=== PATIENT | female | born 1950 | race Caucasian/White ===

== ENCOUNTER 2023-05-24 12:23 | Outpatient (REF) | payer MEDICARE, SELFPAY ==
--- NOTE | ~2023-05-24 | XR_ITS ---
EXAMINATION: XR KNEES AP STANDING BILATERAL XR KNEE, RIGHT CLINICAL INFORMATION: Pain in unspecified knee. COMPARISON: None TECHNIQUE: AP standing view of bilateral knees. 2 views of the right knee. FINDINGS: LEFT KNEE: Mild medial joint space narrowing. Tiny medial and lateral marginal osteophytes. The bones are diffusely demineralized. RIGHT KNEE: Joint effusion. A 1.9 cm corticated ossicle just superior to the patella. Scattered calcifications in the soft tissues of the right knee. Raxjbvof-yh-euofth medial joint space narrowing. Moderate tricompartmental osteophytes. Mild lateral joint space narrowing. A 1.4 cm corticated cystic lucency in the proximal central aspect of the tibia. The bones are diffusely demineralized. XR/XR knee RT 2V IMPRESSION: 1. Sqtdmoyg-vt-ulqjyn degenerative changes right knee with 1.9 cm corticated ossicle and joint effusion superior to the patella. 2. Mild degenerative changes left knee. Additional imaging with CT scan or MRI should be considered for better visualization as these modalities are much more sensitive for detection of fracture or other underlying pathology.
--- NOTE | ~2023-05-24 | XR_ITS ---
EXAMINATION: XR KNEES AP STANDING BILATERAL XR KNEE, RIGHT CLINICAL INFORMATION: Pain in unspecified knee. COMPARISON: None TECHNIQUE: AP standing view of bilateral knees. 2 views of the right knee. FINDINGS: LEFT KNEE: Mild medial joint space narrowing. Tiny medial and lateral marginal osteophytes. The bones are diffusely demineralized. RIGHT KNEE: Joint effusion. A 1.9 cm corticated ossicle just superior to the patella. Scattered calcifications in the soft tissues of the right knee. Odkrhxqw-py-vnmjet medial joint space narrowing. Moderate tricompartmental osteophytes. Mild lateral joint space narrowing. A 1.4 cm corticated cystic lucency in the proximal central aspect of the tibia. The bones are diffusely demineralized. XR/XR knee standing BI IMPRESSION: 1. Rvalntof-kl-zfhapw degenerative changes right knee with 1.9 cm corticated ossicle and joint effusion superior to the patella. 2. Mild degenerative changes left knee. Additional imaging with CT scan or MRI should be considered for better visualization as these modalities are much more sensitive for detection of fracture or other underlying pathology.
== END 2023-05-24 12:24 | disposition home or self-care (01) ==
LOC: HO.HOSX 12:23
PROVIDERS: Visit Provider Orthopaedic Surgery
DX: M17.11 Unilateral primary osteoarthritis, right knee (principal); M54.16 Radiculopathy, lumbar region
CPT/HCPCS: 20610; 73560; 73565; 99202; J1100

== ENCOUNTER 2023-05-24 14:28 | Outpatient (AMB) | payer MEDICARE, SELFPAY ==
--- NOTE | 2023-05-24 14:35 | A.OFFVIS_ITS ---
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 Patient reports she was walking her dog when it pulled on its leash and caused her to fall about a year ago. Patient reports she had physical therapy about a year ago with no relief. She states that laying down improves the pain. Patient indicates she is not currently taking any medications for her pain. 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 She complains of pain from her right hip down into her right foot. She says she has pain with daily & weight-bearing activities, which improves when she lays down. She says she stays active but is limited by her pain. She has fallen multiple times in the last few months which has worsened her pain. She complains of a burning pain in her feet, along with numbness and tingling in her feet. She has Afib and currently takes Warfarin. She is not able to take NSAIDs. [facility]LY [facility] Medical History Asthma Atrial fibrillation Cataract Cataract Hypercholesterolemia Hypertension Obesity (BMI 30-39.9) Osteopenia Peripheral vascular disease Type 2 diabetes mellitus with hyperglycemia Vitamin D deficiency Vitreous detachment Wandering atrial pacemaker Surgical History History of tonsillectomy Family History Mother Ovarian cancer Father No problems noted. Son No problems noted. Daughter Polymyositis Social History Housing: House Alcohol intake: never Patient Tobacco Use Status: Never used Tobacco e-Cigarette/Vaping Use: Never Used Second Hand Smoke Exposure: Yes service: No Current occupational status: retired Cognitive needs: No Hearing needs: No Vision needs: Yes (reading glasses ) Review of Systems Const All systems reviewed & are unremarkable except as noted in HPI and below Physical Exam Vital Signs: BMI result Body Mass Index 32.8 Const General: no acute distress, alert and awake Orientation/consciousness: patient oriented x3 HEENT Head: Yes normocephalic and Yes atraumatic Eyes EOM: EOMs intact bilaterally Resp Effort & Inspection: normal respiratory effort and able to speak in complete sentences Cardio Jugular venous distension: no JVD Skin General skin exam: turgor normal Rashes: no rashes Neuro General: patient oriented x3 Extrem Other: Right Knee: Medial & lateral joint line pain Mild effusion Psych Appearance: grossly normal Affect: normal affect Attitude: cooperative Office Procedures Joint Injection/Drain Joint Injection/Drain Details: Injected 1 mL of Decadron and 3 mL 1% lidocaine and 3 mL of 0.25% Marcaine. Site was prepped using aseptic technique. Patient tolerated the procedure well. Primary Site: right knee Approach Used: anterolateral Coding 96787 - Large joint Procedure code (CPT) selection complete Results Reviewed Results Reviewed: 05/24/23 15:11 BUPivacaine MPF 0.25 % [Sensorcaine-MPF 0.25% 10 ML] 10 ml .ROUTE .STK-MED ONE Lidocaine HCl 2 % MPF [Xylocaine 2 % MPF] 5 ml .ROUTE .STK-MED ONE dexAMETHasone sod phosphate [Decadron] 4 mg .ROUTE .STK-MED ONE I personally reviewed relevant radiographs. Moderate-severe Right knee OA Assessment & Plan Assessment & Plan (1) Osteoarthritis of right knee: Code(s): M17.11 - Unilateral primary osteoarthritis, right knee Plan: This is a 72 year old woman with severe right knee OA. She has pain with daily activity, worse with prolonged ambulation or standing. She ambulates with antalgia and feels limited in her ADLs by pain. I discussed her diagnosis and treatment options. I recommend she be mindful to not push through pain. She is unable to take NSAIDs due to Afib and the use of Warfarin. I injected her right knee today, which she tolerated well. She will follow up in 3 months. (2) Lumbar radiculopathy: Code(s): M54.16 - Radiculopathy, lumbar region Plan: Burning, numbness, and tingling radiating down her right leg and into her foot. Hx of lumbar DDD. I referred her to Dr. Reyna in Pain Management for assessment. (3) Lumbar degenerative disc disease: Code(s): M51.36 - Other intervertebral disc degeneration, lumbar region (4) Diabetic neuropathy: Code(s): E11.40 - Type 2 diabetes mellitus with diabetic neuropathy, unspecified Plan Scribed for Mika Green MD by Pedro Howell, medical clerk, on 05/24/23 at 3:05 PM, EST. Orders: Orders XR knee RT 2V 05/24/23 M25.569 - Pain in unspecified knee XR knee standing BI 05/24/23 M25.569 - Pain in unspecified knee Referrals Pain Management Referral M54.16 - Radiculopathy, lumbar region Coding Level of Care Code New Pt Level 4 (72523) Diagnoses Osteoarthritis of right knee M17.11 Lumbar radiculopathy M54.16 Lumbar degenerative disc disease M51.36 Diabetic neuropathy E11.40 CPT Codes Coding - 49610 Large joint: 16510 - Large joint ([id number])
[2023-05-24 14:47] VITALS: BMI 32.8
== END 2023-05-24 15:45 | disposition home or self-care (01) ==
PROVIDERS: PCP Internal Medicine; Visit Provider Orthopaedic Surgery
DX: M17.11 Unilateral primary osteoarthritis, right knee (principal); M54.16 Radiculopathy, lumbar region; M51.36 Other intervertebral disc degeneration, lumbar region
CPT/HCPCS: 20610; 99204

== ENCOUNTER 2023-06-14 15:11 | Outpatient (AMB) | payer MEDICARE, SELFPAY ==
--- NOTE | 2023-06-14 15:14 | A.OFFVIS_ITS ---
Intake Vital Signs 06/14/23 15:15 Height 5 ft 3 in Weight 188 lb BMI 33.3 BP 157/73 H Blood Pressure Location Lt brachial Position Sitting Respiration 14 Pulse 88 Pulse Source Pulse Oximeter Pulse Oximetry (%) 96 Oxygen Delivery Method Room Air Intake Visit Reasons: Radiculopathy, Lumbar Region Allergies levofloxacin [Levaquin] Allergy (Unknown, Verified 06/14/23 15:16) Rash Clindamycin HCl Allergy (Unknown, Uncoded 06/14/23 15:16) Rash shrimps Allergy (Unknown, Uncoded 06/14/23 15:16) Rash Medication List - Last Reconciled 06/14/23 by Steph Rivas LPN amlodipine 5 mg PO DAILY ascorbic acid (vitamin C) 1 g PO DAILY cholecalciferol (vitamin D3) 25 mcg PO DAILY coenzyme Q10 10 mg PO TID cranberry fruit concentrate (Azo Cranberry) 250 mg PO TID diclofenac sodium 1% (Voltaren Arthritis Pain) 4 grams topical QID ferrous sulfate 325 mg PO DAILY ginkgo biloba 40 mg PO DAILY glucosamine sulfate (Glucosamine) 500 mg PO DAILY grape seed extract 150 mg PO DAILY lisinopril 2.5 mg PO DAILY upxdbcb-rila-yqmch-oreg-capryl 100 mg-150 mg- 50 mg-150 mg caps PO ubidecarenone-omega 3-vit E 25-150-200 mg-mg-unit (Co Q-84-Ydneaof E-Fish Oil) 1 cap PO DAILY warfarin 5 mg PO DAILY HPI Radiculopathy, Lumbar Region HPI Details 72-year-old female presenting today for a new patient evaluation of lumbar radiculopathy. She has a history of severe right knee osteoarthritis and lumbar DDD. She reports pain from her right hip down to her right foot. She complains of a burning pain in her feet, along with numbness and tingling in her feet. She has pain with daily and weight-bearing activities, which improves when she lays down. She says she stays active but is limited by her pain. She has fallen multiple times in the last few months, which has worsened her pain. The pain is described as 1?10/10 in intensity, depending on the level of activity. It is described as an ache in her right lower leg associated with burning in her ankle and foot. She also complains of occasional tingling and dullness in her right side fingers. The pain is worse at night before bed when standing at 8/10 intensity. She has a limp with ambulation. She leans against the shopping cart, which relieves her pain. She lives with her dog and reports that she bends down more than 50 times a day. She also has a lifelong history of lifting heavy items. She had x-ray of leg but no US of lower extremities. She visited Dr. Oly pedraza and had a knee injection with significant relief. She had completed physical therapy in the past about the years ago. She has atrial fibrillation and currently takes warfarin. She is not able to take NSAIDs. She states her diabetes mellitus is stable. Her last HbA1C was 6. She is currently not taking any medication. She has no implant in her body. [facility] Medical History Asthma Atrial fibrillation Cataract Cataract Hypercholesterolemia Hypertension Obesity (BMI 30-39.9) Osteopenia Peripheral vascular disease Type 2 diabetes mellitus with hyperglycemia Vitamin D deficiency Vitreous detachment Wandering atrial pacemaker Surgical History History of tonsillectomy Family History Mother Ovarian cancer Father No problems noted. Son No problems noted. Daughter Polymyositis Social History Housing: House Alcohol intake: never Patient Tobacco Use Status: Never used Tobacco e-Cigarette/Vaping Use: Never Used Second Hand Smoke Exposure: Yes service: No Current occupational status: retired Cognitive needs: No Hearing needs: No Vision needs: Yes (reading glasses ) Review of Systems Const All systems reviewed & are unremarkable except as noted in HPI and below Physical Exam Vital Signs: Last Vital Signs Pulse 88 06/14/23 15:15 Resp 14 06/14/23 15:15 BP 157/73 H 06/14/23 15:15 Pulse Ox 96 06/14/23 15:15 Oxygen Delivery Method Room Air 06/14/23 15:15 BMI result Body Mass Index 33.3 General: Appears afebrile. Alert and oriented. Mood and affect appropriate. Follows and participates in conversation appropriately. Respiratory effort is unlabored. Able to transition from sit to stand unassisted. Ambulates with bilaterally normal heel strike and toe off. Low back: Lumbar extension and flexion do not reproduce the pain. There is no significant tenderness overlying the sacroiliac joints. There are visible venous varicosities on bilateral lower extremities. Results Reviewed Results Reviewed: 05/24/23: XR KNEES AP STANDING BILATERAL. XR KNEE, RIGHT FINDINGS: LEFT KNEE: Mild medial joint space narrowing. Tiny medial and lateral marginal osteophytes. The bones are diffusely demineralized. RIGHT KNEE: Joint effusion. A 1.9 cm corticated ossicle just superior to the patella. Scattered calcifications in the soft tissues of the right knee. Vuevmsja-he-mqnonl medial joint space narrowing. Moderate tricompartmental osteophytes. Mild lateral joint space narrowing. A 1.4 cm corticated cystic lucency in the proximal central aspect of the tibia. The bones are diffusely demineralized. IMPRESSION: 1. Yesubktr-si-auledd degenerative changes right knee with 1.9 cm corticated ossicle and joint effusion superior to the patella. 2. Mild degenerative changes left knee. Additional imaging with CT scan or MRI should be considered for better visualization as these modalities are much more sensitive for detection of fracture or other underlying pathology. Assessment & Plan Assessment & Plan (1) Lumbar radiculopathy: Code(s): M54.16 - Radiculopathy, lumbar region (2) Lumbar degenerative disc disease: Code(s): M51.36 - Other intervertebral disc degeneration, lumbar region (3) Varicose vein of leg: Code(s): I83.90 - Asymptomatic varicose veins of unspecified lower extremity Plan Ordered an MRI scan of the lumbar region to further evaluate the back pain. Ordered a US of the lower extremities to further evaluate venous reflux. Advised to avoid heavy physical activities including heavy lifting, twisting, and bending. The patient will call and scheduled an appointment to review the MRI and US results. Will likely follow up with an epidural steroid injection for lumbar radicular symptoms. Minimally invasive lumbar decompression and spinal cord stimulation may be other options for refractory neurogenic symptoms secondary to spinal stenosis and radicular symptoms. Discussed hyaluronic acid injection vs. temporary nerve stimulator as possible treatment options for knee pain in the future due to limited benefit from intra- articular corticosteroids as well as patient's hesitance to receive further steroid joint injections. Scribed for Dr. Reyna by Bassam Lin medical service representative, on 06/14/2023. I, Dr. Reyna, have personally reviewed and agree with the information entered by the scribe. Orders: Orders MR lumbar spine wo con Today M51.36 - Other intervertebral disc degeneration, lumbar region, M54.16 - Radiculopathy, lumbar region US venous duplex LE BI Today I83.90 - Asymptomatic varicose veins of unspecified lower extremity Coding Level of Care Code New Pt Level 4 (98059) Diagnoses Lumbar radiculopathy M54.16 Lumbar degenerative disc disease M51.36 Varicose vein of leg I83.90
[2023-06-14 15:15] VITALS: BP 157/73; PULSE 88; RESP 14; O2SAT 96; BMI 33.3
== END 2023-06-14 15:45 | disposition home or self-care (01) ==
PROVIDERS: PCP Internal Medicine; Visit Provider Internal Medicine
DX: M54.16 Radiculopathy, lumbar region (principal); M51.36 Other intervertebral disc degeneration, lumbar region; I83.90 Asymptomatic varicose veins of unspecified lower extremity
CPT/HCPCS: 99204

== ENCOUNTER → 2023-06-14 15:11 | Outpatient (BNVA) | payer MEDICARE, SELFPAY | PROVIDERS: PCP Internal Medicine; Visit Provider Internal Medicine | DX: M54.16 Radiculopathy, lumbar region (principal); M51.36 Other intervertebral disc degeneration, lumbar region; M17.11 Unilateral primary osteoarthritis, right knee; M85.80 Other specified disorders of bone density and structure, unspecified site; I73.9 Peripheral vascular disease, unspecified | CPT/HCPCS: 99202 ==

== ENCOUNTER 2023-06-30 13:12 | Outpatient (REF) | payer MEDICARE, SELFPAY ==
--- NOTE | ~2023-06-30 | US_ITS ---
EXAMINATION: US LOWER EXTREMITY VENOUS (REFLUX EXAM), BILATERAL CLINICAL INDICATION: Chronic venous insufficiency with lower extremity of varicose veins COMPARISON: None. TECHNIQUE: Color flow triplex imaging and compression Doppler was performed to evaluate both the deep and the superficial systems bilaterally. To evaluate the superficial system, the examination was performed in the upright position. Color-flow Doppler ultrasound and compression ultrasound were utilized. In addition, maneuvers were utilized to demonstrate reflux. FINDINGS: 1. DEEP VENOUS ULTRASOUND OF THE RIGHT LOWER EXTREMITY: Common Femoral Vein: Compressible, normal respiratory variation and augmented flow. Femoral Vein: Compressible, normal color flow and augmentation. Popliteal Vein: Compressible, normal augmentation. Deep Reflux: There is no evidence of reflux in the deep system in either the common femoral vein or the popliteal vein. There is no evidence of a Jones's cyst. 2. SUPERFICIAL ULTRASOUND WITH DOPPLER OF RIGHT LOWER EXTREMITY: GREAT SAPHENOUS VEIN: Saphenofemoral Junction: 0.5 cm; Reflux: 0 ms Proximal Thigh: 0.5 cm; Reflux: 0 ms Mid Thigh: 0.4 cm; Reflux: 2424 ms Above Knee: 0.3 cm; Reflux: 0 ms At Knee: 0.3 cm; Reflux: 0 ms Below Knee: 0.2 cm; Reflux: 0 ms Mid Calf: 0.3 cm; Reflux: 0 ms Ankle: 0.3 cm; Reflux: 0 ms DUPLICATED MEDIAL GREAT SAPHENOUS VEIN: Diameter: None imaged Reflux: NA DUPLICATED LATERAL GREAT SAPHENOUS VEIN: Diameter: 0.4 cm Reflux: 1576 ms SMALL SAPHENOUS VEIN: Proximal: 0.2 cm; Reflux: 0 ms Distal: 0.1 cm; Reflux: 0 ms VEIN OF GIACOMINI: Size: NA Reflux: NA PERFORATORS: Location: None imaged Size: NA Reflux: NA VARICOSITIES: Location: Distal thigh, knee, proximal calf, mid calf off the great saphenous vein Size: 0.3 to 0.4 cm Reflux: 2884 ms at the level the knee and proximal calf 3. DEEP VENOUS ULTRASOUND OF THE LEFT LOWER EXTREMITY: Common Femoral Vein: Compressible, normal respiratory variation and augmented flow. Femoral Vein: Compressible, normal color flow and augmentation. Popliteal Vein: Compressible, normal augmentation. Deep Reflux: There is no evidence of reflux in the deep system in either the common femoral vein or the popliteal vein. There is no evidence of a Jones's cyst. 4. SUPERFICIAL ULTRASOUND WITH DOPPLER OF LEFT LOWER EXTREMITY: GREAT SAPHENOUS VEIN: Saphenofemoral Junction: 0.5 cm; Reflux: 0 ms Proximal Thigh: 0.4 cm; Reflux: 0 ms Mid Thigh: 0.2 cm; Reflux: 0 ms Above Knee: 0.2 cm; Reflux: 1156 ms At Knee: 0.3 cm; Reflux: 0 ms Below Knee: 0.3 cm; Reflux: 0 ms Mid Calf: 0.2 cm; Reflux: 0 ms Ankle: 0.2 cm; Reflux: 0 ms DUPLICATED MEDIAL GREAT SAPHENOUS VEIN: Diameter: None imaged Reflux: NA DUPLICATED LATERAL GREAT SAPHENOUS VEIN: Diameter: 0.3 cm Reflux: None SMALL SAPHENOUS VEIN: Proximal: 0.2 cm; Reflux: 0 ms Distal: 0.2 cm; Reflux: 0 ms VEIN OF GIACOMINI: Size: NA Reflux: NA PERFORATORS: Location: None imaged Size: NA Reflux: NA VARICOSITIES: Location: Knee and proximal calf off the great saphenous vein Size: 0.3 cm Reflux: None US/US venous duplex LE BI IMPRESSION: Right: Focal segmental reflux in the great saphenous vein in the mid thigh. Reflux also seen in the lateral duplicated great saphenous vein within the thigh. Branching varicosities with reflux as described above Left: Focal segmental reflux in the great saphenous vein in the distal thigh. Branching varicosities without reflux as described above.
== END 2023-06-30 13:13 | disposition home or self-care (01) ==
LOC: HO.US 13:12
PROVIDERS: PCP Internal Medicine; Visit Provider Internal Medicine
DX: I83.93 Asymptomatic varicose veins of bilateral lower extremities (principal)
CPT/HCPCS: 93970

== ENCOUNTER 2023-07-12 15:43 | Outpatient (AMB) | payer MEDICARE, SELFPAY ==
[2023-07-12 15:46] VITALS: BP 130/76; PULSE 97; RESP 14; O2SAT 97; BMI 33.3
--- NOTE | 2023-07-12 15:46 | MHC.OFFVIS ---
Intake Vital Signs 07/12/23 15:46 Height 5 ft 3 in Weight 188 lb BMI 33.3 BP 130/76 Blood Pressure Location Lt brachial Position Sitting Respiration 14 Pulse 97 Pulse Source Pulse Oximeter Pulse Oximetry (%) 97 Oxygen Delivery Method Room Air Intake Visit Reasons: Varicose Vein of Leg Ultrasound Results Allergies levofloxacin [Levaquin] Allergy (Unknown, Verified 07/12/23 15:50) Rash Clindamycin HCl Allergy (Unknown, Uncoded 07/12/23 15:50) Rash shrimps Allergy (Unknown, Uncoded 07/12/23 15:50) Rash Medication List - Last Reconciled 07/12/23 by Steph Rivas LPN amlodipine 5 mg PO DAILY ascorbic acid (vitamin C) 1 g PO DAILY cholecalciferol (vitamin D3) 25 mcg PO DAILY coenzyme Q10 10 mg PO TID cranberry fruit concentrate (Azo Cranberry) 250 mg PO TID diclofenac sodium 1% (Voltaren Arthritis Pain) 4 grams topical QID ferrous sulfate 325 mg PO DAILY ginkgo biloba 40 mg PO DAILY glucosamine sulfate (Glucosamine) 500 mg PO DAILY grape seed extract 150 mg PO DAILY lisinopril 2.5 mg PO DAILY evfolsm-xxiz-luckv-oreg-capryl 100 mg-150 mg- 50 mg-150 mg caps PO ubidecarenone-omega 3-vit E 25-150-200 mg-mg-unit (Co A-32-Acfshgo E-Fish Oil) 1 cap PO DAILY warfarin 5 mg PO DAILY HPI Varicose Vein of Leg Ultrasound Results HPI Details 72-year-old female who presents today to the office for a follow up review of ultrasound result of leg. She reports foot pain with ambulation. She describes her pain as a sharp, intermittent stabbing pain in her foot. She has been using new, good-cushioned shoes for ambulation. The patient had a cortisone injection for knee pain. The patient will follow up with the residential appliance repair technician. She has tried compression stocking and noticed numbness in her toes. She has also tried open-toe compression stocking in the past. We reviewed US of the lower extremities which revealed venous varicosities and reflux. [facility] Medical History Asthma Atrial fibrillation Cataract Cataract Hypercholesterolemia Hypertension Obesity (BMI 30-39.9) Osteopenia Peripheral vascular disease Type 2 diabetes mellitus with hyperglycemia Vitamin D deficiency Vitreous detachment Wandering atrial pacemaker Surgical History History of tonsillectomy Family History Mother Ovarian cancer Father No problems noted. Son No problems noted. Daughter Polymyositis Social History Housing: House Alcohol intake: never Patient Tobacco Use Status: Never used Tobacco e-Cigarette/Vaping Use: Never Used Second Hand Smoke Exposure: Yes service: No Current occupational status: retired Cognitive needs: No Hearing needs: No Vision needs: Yes (reading glasses ) Review of Systems Const All systems reviewed & are unremarkable except as noted in HPI and below Physical Exam Vital Signs: Last Vital Signs Pulse 97 07/12/23 15:46 Resp 14 07/12/23 15:46 BP 130/76 07/12/23 15:46 Pulse Ox 97 07/12/23 15:46 Oxygen Delivery Method Room Air 07/12/23 15:46 BMI result Body Mass Index 33.3 General: Appears afebrile. Alert and oriented. Mood and affect appropriate. Follows and participates in conversation appropriately. Respiratory effort is unlabored. Able to transition from sit to stand unassisted. Ambulates with bilaterally normal heel strike and toe off. Results Reviewed Results Reviewed: 06/30/23: US LOWER EXTREMITY VENOUS (REFLUX EXAM), BILATERAL FINDINGS: 1. DEEP VENOUS ULTRASOUND OF THE RIGHT LOWER EXTREMITY: Common Femoral Vein: Compressible, normal respiratory variation and augmented flow. Femoral Vein: Compressible, normal color flow and augmentation. Popliteal Vein: Compressible, normal augmentation. Deep Reflux: There is no evidence of reflux in the deep system in either the common femoral vein or the popliteal vein. There is no evidence of a Jones's cyst. 2. SUPERFICIAL ULTRASOUND WITH DOPPLER OF RIGHT LOWER EXTREMITY: GREAT SAPHENOUS VEIN: Saphenofemoral Junction: 0.5 cm; Reflux: 0 ms Proximal Thigh: 0.5 cm; Reflux: 0 ms Mid Thigh: 0.4 cm; Reflux: 2424 ms Above Knee: 0.3 cm; Reflux: 0 ms At Knee: 0.3 cm; Reflux: 0 ms Below Knee: 0.2 cm; Reflux: 0 ms Mid Calf: 0.3 cm; Reflux: 0 ms Ankle: 0.3 cm; Reflux: 0 ms DUPLICATED MEDIAL GREAT SAPHENOUS VEIN: Diameter: None imaged Reflux: NA DUPLICATED LATERAL GREAT SAPHENOUS VEIN: Diameter: 0.4 cm Reflux: 1576 ms SMALL SAPHENOUS VEIN: Proximal: 0.2 cm; Reflux: 0 ms Distal: 0.1 cm; Reflux: 0 ms VEIN OF GIACOMINI: Size: NA Reflux: NA PERFORATORS: Location: None imaged Size: NA Reflux: NA VARICOSITIES: Location: Distal thigh, knee, proximal calf, mid calf off the great saphenous vein Size: 0.3 to 0.4 cm Reflux: 2884 ms at the level the knee and proximal calf 3. DEEP VENOUS ULTRASOUND OF THE LEFT LOWER EXTREMITY: Common Femoral Vein: Compressible, normal respiratory variation and augmented flow. Femoral Vein: Compressible, normal color flow and augmentation. Popliteal Vein: Compressible, normal augmentation. Deep Reflux: There is no evidence of reflux in the deep system in either the common femoral vein or the popliteal vein. There is no evidence of a Jones's cyst. 4. SUPERFICIAL ULTRASOUND WITH DOPPLER OF LEFT LOWER EXTREMITY: GREAT SAPHENOUS VEIN: Saphenofemoral Junction: 0.5 cm; Reflux: 0 ms Proximal Thigh: 0.4 cm; Reflux: 0 ms Mid Thigh: 0.2 cm; Reflux: 0 ms Above Knee: 0.2 cm; Reflux: 1156 ms At Knee: 0.3 cm; Reflux: 0 ms Below Knee: 0.3 cm; Reflux: 0 ms Mid Calf: 0.2 cm; Reflux: 0 ms Ankle: 0.2 cm; Reflux: 0 ms DUPLICATED MEDIAL GREAT SAPHENOUS VEIN: Diameter: None imaged Reflux: NA DUPLICATED LATERAL GREAT SAPHENOUS VEIN: Diameter: 0.3 cm Reflux: None SMALL SAPHENOUS VEIN: Proximal: 0.2 cm; Reflux: 0 ms Distal: 0.2 cm; Reflux: 0 ms VEIN OF GIACOMINI: Size: NA Reflux: NA PERFORATORS: Location: None imaged Size: NA Reflux: NA VARICOSITIES: Location: Knee and proximal calf off the great saphenous vein Size: 0.3 cm Reflux: None IMPRESSION: Right: Focal segmental reflux in the great saphenous vein in the mid-thigh. Reflux also seen in the lateral duplicated great saphenous vein within the thigh. Branching varicosities with reflux as described above Left: Focal segmental reflux in the great saphenous vein in the distal thigh. Branching varicosities without reflux as described above. Assessment & Plan Assessment & Plan (1) Lumbar radiculopathy: Code(s): M54.16 - Radiculopathy, lumbar region (2) Varicose vein of leg: Comment: GSV reflux Code(s): I83.90 - Asymptomatic varicose veins of unspecified lower extremity (3) Right foot pain: Code(s): M79.671 - Pain in right foot Plan A referral was provided to physical therapy for lumbar radicular symptoms. The patient will call us to inform whether her pain has improved or not after two month of therapy. A referral was provided to vascular surgery to further evaluate the venous reflux for consideration of RFA. She has previously trialed compression stockings without relief. She has significant pain around the right knee in calves which correlates with the reflux findings on her ultrasound exam. I ordered an x-ray of the right foot to assess the pain in the right foot. Recommend podiatry evaluation. Consider MRI in the future if no response to orthotics, arch support and podiatry recommendations. Scribed for Dr. Reyna by Bassam Lin, vp medical, on 07/12/2023. I, Dr. Reyna, have personally reviewed and agree with the information entered by the scribe. Orders: Orders PT Evaluation and Treatment Today M54.16 - Radiculopathy, lumbar region XR foot RT min 3V Today M79.671 - Pain in right foot Referrals Vascular Surgery Referral I83.90 - Asymptomatic varicose veins of unspecified lower extremity Coding Level of Care Code Est Pt Level 4 (15766) Diagnoses Lumbar radiculopathy M54.16 Varicose vein of leg I83.90 Right foot pain M79.671
== END 2023-07-12 16:14 | disposition home or self-care (01) ==
PROVIDERS: PCP Internal Medicine; Visit Provider Internal Medicine
DX: M54.16 Radiculopathy, lumbar region (principal); I83.90 Asymptomatic varicose veins of unspecified lower extremity; M79.671 Pain in right foot
CPT/HCPCS: 99213

== ENCOUNTER 2023-07-12 15:43 | Outpatient (REF) | payer MEDICARE, SELFPAY ==
--- NOTE | ~2023-07-12 | XR_ITS ---
EXAMINATION: XR FOOT, RIGHT CLINICAL INFORMATION: Pain right foot. COMPARISON: None available. TECHNIQUE: AP, lateral, and oblique views of the right foot. FINDINGS: The bones are diffusely demineralized. Plantar and dorsal calcaneal spurs. Small corticated ossicle along the lateral aspect of the 1st metatarsophalangeal joint. Degenerative changes in the tarsometatarsal joints. Degenerative changes at the 1st tarsometatarsal joint with small cystic lucency overlying the lateral distal aspect of the tarsal bone. XR/XR foot RT min 3V IMPRESSION: Degenerative changes at the tarsometatarsal joints as detailed above. Additional imaging with CT scan or MRI should be considered for better visualization as these modalities are much more sensitive for detection of fracture or other underlying pathology.
== END 2023-07-12 15:44 | disposition home or self-care (01) ==
LOC: HO.XRAY 15:43
PROVIDERS: PCP Internal Medicine; Visit Provider Internal Medicine
DX: M54.16 Radiculopathy, lumbar region (principal); I83.90 Asymptomatic varicose veins of unspecified lower extremity; M79.671 Pain in right foot
CPT/HCPCS: 73630; 99212

== ENCOUNTER 2023-08-19 14:58 | Outpatient (AMB) | payer MEDICARE, SELFPAY ==
--- NOTE | 2023-08-19 15:07 | MHC.OFFVIS ---
Intake Intake Visit Reasons: OV-Right knee follow up-injection? Intake Note: Bev is a 73 year old female who presents today for a follow up of her right knee, last injection was done on 05/24/23. Patient reports that the injection was very helpful. She complains of pain in the medial aspect of the knee. She is not interested in dong another injection today. Allergies levofloxacin [Levaquin] Allergy (Unknown, Verified 07/12/23 15:50) Rash Clindamycin HCl Allergy (Unknown, Uncoded 07/12/23 15:50) Rash shrimps Allergy (Unknown, Uncoded 07/12/23 15:50) Rash HPI OV-Right knee follow up-injection? HPI Details Bev is a 73 year old Diabetic woman who returns to discuss her right knee OA She continues to complain of pain in her right knee, primarily in the medial aspect. She says she has pain with daily & weight-bearing activities. She was last injected on 05/24/23 and says it was very helpful but she is not interested in a repeat injection today. [facility] Medical History Asthma Atrial fibrillation Cataract Cataract Hypercholesterolemia Hypertension Obesity (BMI 30-39.9) Osteopenia Peripheral vascular disease Type 2 diabetes mellitus with hyperglycemia Vitamin D deficiency Vitreous detachment Wandering atrial pacemaker Surgical History History of tonsillectomy Family History Mother Ovarian cancer Father No problems noted. Son No problems noted. Daughter Polymyositis Social History Housing: House Alcohol intake: never Patient Tobacco Use Status: Never used Tobacco e-Cigarette/Vaping Use: Never Used Second Hand Smoke Exposure: Yes service: No Current occupational status: retired Cognitive needs: No Hearing needs: No Vision needs: Yes (reading glasses ) Review of Systems Const All systems reviewed & are unremarkable except as noted in HPI and below Physical Exam Const General: no acute distress, alert and awake Orientation/consciousness: patient oriented x3 HEENT Head: Yes normocephalic and Yes atraumatic Eyes EOM: EOMs intact bilaterally Resp Effort & Inspection: normal respiratory effort and able to speak in complete sentences Cardio Jugular venous distension: no JVD Skin General skin exam: turgor normal Rashes: no rashes Neuro General: patient oriented x3 Extrem Other: Tenderness to palpation medial compartment bilateral knees Psych Appearance: grossly normal Affect: normal affect Attitude: cooperative Assessment & Plan Assessment & Plan (1) Osteoarthritis of right knee: Code(s): M17.11 - Unilateral primary osteoarthritis, right knee Plan: This is a 73 year old woman with severe right knee OA. I injected her knee about 3 months ago and she has been doing well. I reviewed with her options for future treatment but at this time she is satisfied and does not want any additional injections or treatment. She can return to see me at any time. (2) Lumbar radiculopathy: Code(s): M54.16 - Radiculopathy, lumbar region (3) Lumbar degenerative disc disease: Code(s): M51.36 - Other intervertebral disc degeneration, lumbar region (4) Diabetic neuropathy: Code(s): E11.40 - Type 2 diabetes mellitus with diabetic neuropathy, unspecified Coding Level of Care Code Est Pt Level 3 (71875) Diagnoses Osteoarthritis of right knee M17.11 Lumbar radiculopathy M54.16 Lumbar degenerative disc disease M51.36 Diabetic neuropathy E11.40
== END 2023-08-19 15:41 | disposition home or self-care (01) ==
PROVIDERS: PCP Internal Medicine; Visit Provider Orthopaedic Surgery
DX: M17.11 Unilateral primary osteoarthritis, right knee (principal); M54.16 Radiculopathy, lumbar region; M51.36 Other intervertebral disc degeneration, lumbar region; E11.40 Type 2 diabetes mellitus with diabetic neuropathy, unspecified
CPT/HCPCS: 99213

== ENCOUNTER → 2023-08-19 14:58 | Outpatient (BNVA) | payer MEDICARE, SELFPAY | PROVIDERS: PCP Internal Medicine; Visit Provider Orthopaedic Surgery | DX: M17.11 Unilateral primary osteoarthritis, right knee (principal); M54.16 Radiculopathy, lumbar region; M51.36 Other intervertebral disc degeneration, lumbar region; E11.40 Type 2 diabetes mellitus with diabetic neuropathy, unspecified | CPT/HCPCS: 99212 ==

== ENCOUNTER 2023-08-26 14:30 | Outpatient (AMB) | payer MEDICARE, SELFPAY ==
[2023-08-26 14:33] VITALS: BMI 33.3
--- NOTE | 2023-08-26 14:33 | MHC.OFFVIS ---
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 Pt states she has arthritis in her right foot that causing a lot of pain. Pt states she was on her feet 10 hours a day, tries to sit more and doesn't hurt as badly. Has some spider veins and large VV clusters. Accompanied by: Daughter Allergies levofloxacin [Levaquin] Allergy (Unknown, Verified 08/26/23 14:39) Rash Clindamycin HCl Allergy (Unknown, Uncoded 08/26/23 14:39) Rash shrimps Allergy (Unknown, Uncoded 08/26/23 14:39) Rash HPI BASKET MENDER/Pain Cabrera referral for s/p US HPI Details Pleasant 73-year-old female presents for evaluation regarding lower extremity pain and discomfort. She had seen pain management and had undergone evaluation by them. He has been seen by Orthopedics and they were concerned about severe right knee osteoarthritis where she had received an injection. In addition she has lumbar radiculopathy along with degenerative disc disease. There is also a component of diabetic neuropathy as well. Upon workup was noted that she had significant superficial spider telangiectasias. She has undergone venous insufficiency testing. Upon discussion with her she has had no prior venous procedures. She has no prior history of DVT. She also denies any significant lower extremity injuries as well. She now presents to us for evaluation [facility] Medical History Atrial fibrillation Cataract Cataract Vitreous detachment Wandering atrial pacemaker Type 2 diabetes mellitus with hyperglycemia Vitamin D deficiency Obesity (BMI 30-39.9) Asthma Hypertension Peripheral vascular disease Osteopenia Hypercholesterolemia Surgical History History of tonsillectomy Family History Mother Ovarian cancer Father No problems noted. Son No problems noted. Daughter Polymyositis Social History Housing: House Alcohol intake: never Patient Tobacco Use Status: Never used Tobacco e-Cigarette/Vaping Use: Never Used Second Hand Smoke Exposure: Yes service: No Current occupational status: retired Cognitive needs: No Hearing needs: No Vision needs: Yes (reading glasses ) Review of Systems Const Reports as per HPI ENT Reports no additional complaints Card Denies chest pain, Denies chest pain at rest and Denies chest pain with activity Resp Denies chest congestion and Denies cough GI Reports no additional complaints Musc Details: pain over varicosities, aching of lower extremities, swelling, cramping, heaviness and tiredness, itching Denies abnormal gait Skin/Breast Reports pruritus and Denies wounds Neuro Reports no additional complaints and Denies abnormal gait Psych Denies no additional complaints Physical Exam Vital Signs: BMI result Body Mass Index 33.3 Const General: cooperative, healthy appearing and comfortable Orientation/consciousness: oriented to person, oriented to place and oriented to time Neck Carotids: no bruits Chest Chest palpation & inspection: normal inspection of the chest and normal palpation of entire chest wall Resp Effort & Inspection: normal respiratory effort and able to speak in complete sentences Cardio Rate: regular rate Heart sounds: S1 normal heart sound present and S2 normal heart sound present Peripheral pulses: Peripheral pulses 2+ throughout GI Inspection: Yes normal to inspection Skin Other: +1 edema, multiple spider telangiectasias General skin exam: dry skin Neuro General: oriented to person, oriented to place and oriented to time Extrem Right lower extremity: full ROM, normal capillary refill and edema Left lower extremity: full ROM, normal capillary refill and edema Psych Mental Status: mental status grossly normal Results Reviewed Results Reviewed: Brief summary of venous insufficiency testing is as follows: right great saphenous vein: Focally positive at midthigh right small saphenous vein: negative right accessory vein: Present and reflux at the level of the knee. left great saphenous vein: negative left small saphenous vein: negative left accessory vein: none present Please note there is no evidence of any venous aneurysms or significant tortuosity Assessment & Plan Assessment & Plan (1) Varicose veins of right lower extremity with inflammation: Code(s): I83.11 - Varicose veins of right lower extremity with inflammation Plan: In short patient has focal reflux on the right lower extremity. Would not treat this focal spot as I do not think it would improve her symptoms. Her biggest complaint is pain. She does have some mild edema but I she feels her pain is the biggest issue. We did discuss routine conservative measures including compression elevation and exercise. Should her edema worsen and that be the cause have her issues happy to see her back for potential treatment. We did discuss routine conservative measures including compression, elevation, and exercise. I did provide her an information packet regarding venous disease in where to purchase appropriate stockings. Once again she will follow up with us on as-needed basis. Thank you for allowing us to assist in her care Coding Level of Care Code New Pt Level 4 (10777) Diagnoses Varicose veins of right lower extremity with inflammation I83.11
== END 2023-08-26 15:02 | disposition home or self-care (01) ==
PROVIDERS: PCP Internal Medicine; Visit Provider Surgery Vascular Surgery
DX: I83.11 Varicose veins of right lower extremity with inflammation (principal)
CPT/HCPCS: 99203

== ENCOUNTER → 2023-08-26 14:30 | Outpatient (BNVA) | payer MEDICARE, SELFPAY | PROVIDERS: PCP Internal Medicine; Visit Provider Surgery Vascular Surgery | DX: I83.11 Varicose veins of right lower extremity with inflammation (principal) | CPT/HCPCS: 99202 ==

== ENCOUNTER 2023-10-08 07:28 | Outpatient (AMB) | payer MEDICARE, SELFPAY ==
[2023-10-08 07:30] VITALS: BP 138/82; PULSE 79; O2SAT 98; BMI 33.5
--- NOTE | 2023-10-08 07:30 | A.OFFPC_ITS ---
Vital Signs 10/08/23 07:30 Height 5 ft 3 in Weight 85.729 kg BMI 33.5 BP 138/82 Blood Pressure Location Lt brachial Position Sitting Pulse 79 Pulse Source Pulse Oximeter Pulse Oximetry (%) 98 Oxygen Delivery Method Room Air Intake Visit Reasons: PE Allergies levofloxacin [Levaquin] Allergy (Unknown, Verified 10/08/23 07:46) Rash Clindamycin HCl Allergy (Unknown, Uncoded 10/08/23 07:31) Rash shrimps Allergy (Unknown, Uncoded 10/08/23 07:31) Rash Medication List - Last Reconciled 10/08/23 by JOEL Enrique amlodipine 5 mg PO DAILY ascorbic acid (vitamin C) 1 g PO DAILY cholecalciferol (vitamin D3) 25 mcg PO DAILY coenzyme Q10 10 mg PO TID cranberry fruit concentrate (Azo Cranberry) 250 mg PO TID diclofenac sodium 1% (Voltaren Arthritis Pain) 4 grams topical QID ferrous sulfate 325 mg PO DAILY ginkgo biloba 40 mg PO DAILY glucosamine sulfate (Glucosamine) 500 mg PO DAILY grape seed extract 150 mg PO DAILY lisinopril 2.5 mg PO DAILY rmzmxny-ugkb-dlmwv-oreg-capryl 100 mg-150 mg- 50 mg-150 mg caps PO ubidecarenone-omega 3-vit E 25-150-200 mg-mg-unit (Co V-88-Fawgibc E-Fish Oil) 1 cap PO DAILY warfarin 5 mg PO DAILY Tobacco use date assessed: 03/23/23 Fall risk assessment: No Falls in past year Last assessed Fall Risk: 10/08/23 Dental Screening Dental Screen Date: 10/08/23 Did you have a dental visit in the last 12 months?: Yes Did you have a dental problem in the last 6 months where you did not have access to dental care?: No Was dental information given to patient?: Patient has dentist HPI HPI Comments History of Present Illness Details 73-year-old female past medical history significant for hypertension, hypercholesteremia, asthma, type 2 diabetes mellitus, diabetic neuropathy, atrial fibrillation, lumbar degenerative disc disease, osteoarthritis of right knee and varicose veins. Patient presents today for physical exam. Review of the notes patient was seen by Dr. Graham vascular surgery for evaluation of varicose veins, In short patient has focal reflux on the right lower extremity. Did not recommend treatment of this focal spot as he does not think it would improve her symptoms. Patient continues to follow with orthopedic for osteoarthritis last seen in July patient did not want to proceed with an injection at that time. Eye exam: Goes for bi annual eye exams and follows with retina specialist. Mammogram due October 2023 Colonoscopy: 2016; Dr. Wolfe negative, recommended 10 year follow up. Bone density screening: Printed order given to patient for repeat bone density screening. Lab orders handed to patient in office today. [facility] Medical History (Updated 10/08/23 @ 07:52 by JOEL Enrique) Atrial fibrillation Cataract Cataract Vitreous detachment Wandering atrial pacemaker Type 2 diabetes mellitus with hyperglycemia Vitamin D deficiency Obesity (BMI 30-39.9) Asthma Hypertension Peripheral vascular disease Osteopenia Hypercholesterolemia Surgical History History of tonsillectomy Family History Mother Ovarian cancer Father No problems noted. Son No problems noted. Daughter Polymyositis Social History Housing: House Alcohol intake: never Patient Tobacco Use Status: Never used Tobacco e-Cigarette/Vaping Use: Never Used Second Hand Smoke Exposure: Yes service: No Current occupational status: retired Cognitive needs: No Hearing needs: No Vision needs: Yes (reading glasses ) Questionnaire PHQ-9 Over the last 2 weeks, how often have you been bothered by any of the following problems? 1. Little interest or pleasure in doing things: not at all 2. Feeling down, depressed, or hopeless: not at all 3. Trouble falling or staying asleep, or sleeping too much: not at all 4. Feeling tired or having little energy: not at all 5. Poor appetite or overeating: not at all 6. Feeling bad about yourself - or that you are a failure or have let yourself or your family down: not at all 7. Trouble concentrating on things, such as reading the newspaper or watching television: not at all 8. Moving or speaking so slowly that other people could have noticed. Or the opposite - being so fidgety or restless that you have been moving around a lot more than usual: not at all 9. Thoughts that you would be better off or of hurting yourself in some way: not at all Total score: 0 Depression Screening Interpretation: Negative Depression Screening Done: Yes 43938 - PHQ-9 Billing: Yes Source: Developed by Drs. Quique Benjamin, Ralf Curry and colleagues, with an educational olivier from [employer]. Thrive Questionnaire Date Thrive assessed: 11/24/22 AUDIT C Alcohol Use Questionnaire (AUDIT-C) 1. How often do you have a drink containing alcohol?: Never 2. How many drinks containing alcohol do you have on a typical day when you are drinking?: 1 or 2 (0) 3. How often do you have six or more drinks on one occasion?: Never Total Score: 0 Score Reviewed/Action Taken: No LINDA-7 AMB Questionnaire LINDA-7 Date LINDA - 7 assessed: 11/24/22 Source: Developed by Drs. Quique Benjamin, Karishma Bangura, Ralf Mares and colleagues, with an educational olivier from [employer]. Review of Systems Const Denies chills, Denies fatigue, Denies fever(s) and Denies poor appetite Eyes Denies no additional complaints ENT Reports Normal hearing present Card Denies chest pain, Denies syncope, Denies rapid heart rate and Denies dyspnea Resp Denies cough and Denies dyspnea GI Denies change in stool character, Denies constipation, Denies diarrhea, Denies nausea and Denies vomiting Denies urinary frequency, Denies dysuria and Denies urinary urgency Neuro Reports Normal hearing present, Denies confusion and Denies syncope Psych Denies confusion Endo Denies fatigue Physical exam (Primary Care) Vital Signs: Last Vital Signs Pulse 79 10/08/23 07:30 BP 138/82 10/08/23 07:30 Pulse Ox 98 10/08/23 07:30 Oxygen Delivery Method Room Air 10/08/23 07:30 BMI result Body Mass Index 33.5 Tobacco/Smoking Status: Tobacco use Status Tobacco use date assessed 03/23/23 10/08/23 07:35 Patient Tobacco Use Status Never used Tobacco 10/08/23 07:35 e-Cigarette/Vaping Use Never Used 10/08/23 07:35 PHQ-9: PHQ-9 Score PHQ-9: Total score 0 10/08/23 08:06 Depression Screening Interpretation: Negative Thrive Assessment: Date of Thrive Assessment Date Thrive assessed 11/24/22 10/08/23 07:35 Const General: No confusion Orientation/consciousness: No confusion HENMT Head: Yes normocephalic and Yes atraumatic Ears: external ears normal and TM's normal bilaterally General nose exam: Normal external nose present and Normal nasal mucous membra farrah and turbinates present Face and sinus: Yes normal facial exam and Yes sinuses nontender Mouth: moist mucous membranes Throat: Yes tonsils normal Eyes Conjunctivae: conjunctivae normal Sclerae: sclerae normal Pupils: Equal, round and reactive pupils present and Pupils normal by confrontation EOM: EOMs intact bilaterally Direct Ophthalmoscopy: normal light reflex Neck Neck: Yes no lymphadenopathy and Yes supple Thyroid: Thyroid normal Chest Chest palpation & inspection: normal inspection of the chest Resp Effort & Inspection: normal respiratory effort Auscultation: clear to auscultation bilaterally, no crackles, no rhonchi and no wheezes Cardio Rate: regular rate Rhythm: regular rhythm Peripheral pulses: radial pulses present and dorsalis pedis present GI Inspection: Yes normal to inspection Palpation (GI): Soft to palpation, nontender and No hepatosplenomegaly present Auscultation: normoactive bowel sounds Skin General skin exam: no rashes or lesions noted Neuro General: No confusion Cranial nerves: Yes Equal, round and reactive pupils present and Yes Normal hearing present Cognition (Neuro): normal cognition Gait exam (Neuro): Normal gait present Motor exam (neuro): 5/5 motor strength present throughout Deep tendon reflexes (DTR's): Right brachioradialis reflex intensity grade: 2+, Left brachioradialis reflex intensity grade: 2+, Right patellar reflex intensity grade: 2+ and Left patellar reflex intensity grade: 2+ Extrem General: No edema Results AMB Hemoglobin A1c AMB Hemoglobin A1c 6.7 % Last Edit by Diane Whiteside CMA on 10/08/23 09 :12 Assessment and Plan Assessment & Plan (1) Osteopenia: Code(s): M85.80 - Other specified disorders of bone density and structure, unspecified site Plan: Patient given bone density ordered in office today. (2) Hypercholesterolemia: Code(s): E78.00 - Pure hypercholesterolemia, unspecified Plan: Fasting lipid panel ordered. Continue to follow low-cholesterol diet. (3) Hypertension: Code(s): I10 - Essential (primary) hypertension Qualifiers: Hypertension type: essential hypertension Qualified Code(s): I10 - Essential (primary) hypertension Plan: Continue on amlodipine 5 mg daily and lisinopril. Follow low-salt diet exercise. (4) Type 2 diabetes mellitus with hyperglycemia: Comment: Dr. Cai, Dr. Clark Code(s): E11.65 - Type 2 diabetes mellitus with hyperglycemia Qualifiers: Diabetes mellitus usp insulin use: without usp use Qualified Code(s): E11.65 - Type 2 diabetes mellitus with hyperglycemia Plan: Hemoglobin A1c 6.7% in office today. Patient not currently on any antidiabetic medications. Patient admits to eat eating alot of hard candies daily that are not sugar free. Patient advised to buy sugar free hard candies Patient educated to decrease the amount of carbohydrate intake such as pasta, bread, rice and potatoes are all sugar in addition to the sweet stuff. Remember that fruits are good but they also have sugar.Hemoglobin A1c goal of less than 6.5% (5) Atrial fibrillation: Comment: diagnosed 03/[address] Yuan cardiology Code(s): I48.91 - Unspecified atrial fibrillation Plan: Continue to follow with cardiopulmonary technician and eeg tech. Continue on Coumadin (6) Annual physical exam: Code(s): Z00.00 - Encounter for general adult medical examination without abnormal findings Plan: Follow-up in 1 year for annual exam. Plan Follow-up in 6 months Orders: Orders XR DEXA axial skeleton Today M85.80 - Other specified disorders of bone density and structure, unspecified site AMB Hemoglobin A1c Today Z13.9 - Encounter for screening, unspecified Coding Level of Care Code Est Pt Prev Care >65y(21127) Diagnoses Osteopenia M85.80 Hypercholesterolemia E78.00 Essential hypertension I10 Hypertension type: essential hypertension Type 2 diabetes mellitus with hyperglycemia, without long-term current use of insulin E11.65 Diabetes mellitus lobsterman insulin use: without usp use Atrial fibrillation I48.91 Annual physical exam Z00.00
== END 2023-10-08 08:07 | disposition home or self-care (01) ==
PROVIDERS: PCP Internal Medicine; Visit Provider Nurse Practitioner Family
DX: Z00.00 Encounter for general adult medical examination without abnormal findings (principal); E11.65 Type 2 diabetes mellitus with hyperglycemia; I48.91 Unspecified atrial fibrillation; M85.80 Other specified disorders of bone density and structure, unspecified site; E78.00 Pure hypercholesterolemia, unspecified; I10 Essential (primary) hypertension
CPT/HCPCS: 83036; 99397

== ENCOUNTER 2023-12-28 14:20 | Outpatient (AMB) | payer MEDICARE, SELFPAY ==
[2023-12-28 14:21] VITALS: BP 132/74; PULSE 83; O2SAT 97; BMI 33.3
--- NOTE | 2023-12-28 14:21 | A.OFFPC_ITS ---
Vital Signs 12/28/23 14:21 Height 5 ft 3 in Weight 188 lb 0.8 oz BMI 33.3 BP 132/74 Blood Pressure Location Lt brachial Position Sitting Pulse 83 Pulse Source Pulse Oximeter Pulse Oximetry (%) 97 Oxygen Delivery Method Room Air Intake Visit Reasons: 3mth follow up DM Intake Note: Patient is here to follow up on DM Press Cutter Required: No Allergies levofloxacin [Levaquin] Allergy (Unknown, Verified 12/28/23 14:22) Rash Clindamycin HCl Allergy (Unknown, Uncoded 12/28/23 14:22) Rash shrimps Allergy (Unknown, Uncoded 12/28/23 14:22) Rash Tobacco use date assessed: 12/28/23 Fall risk assessment: No Falls in past year Last assessed Fall Risk: 12/28/23 Dental Screening Dental Screen Date: 12/28/23 HPI 3mth follow up DM 2 HPI Details 73-year-old obese female with diabetes m ellitus controlled atrial fibrillation hypertension hypercholesterolemia osteopenia last seen in September 2023. Patient had a physical at that time. Patient's bone density is due, colonoscopy is due this year mammogram is up-to-date. Patient has seen Cardiology in October 2023 continuing on lisinopril 2.5 mg once a day and amlodipine 5 mg once a day as for the atrial fibrillation persistent continue with Coumadin anticoagulation advised to get nuclear stress test and advised to get echocardiogram also patient had blood work done in October showing normal blood count to 13.5 and 41.4 hemoglobin A1c controlled at 6.7 elevated vitamin B12 elevated blood sugars 127 renal function is normal electrolytes are normal liver function is normal thyroid is in the normal range cholesterol total is 232 with an LDL of 154 guidelines is below 100. Triglyceride is 79 normal vitamin- D urine microalbumin creatinine ratio unable to calculate. Patient also has followed up with Pulmonary in [place] with Dr. Gilbert mild persistent asthma has some residual cough from COVID-19 patient also has met the vascular surgeon for the varicose veins treated conservatively. Patient did see the ortho for the right knee osteoarthritis. nuclear stress test PAtient states Normal. declined bone density. [facility] Medical History (Updated 12/28/23 @ 14:50 by Cain Lyman MD) Atrial fibrillation Cataract Cataract Vitreous detachment Wandering atrial pacemaker Type 2 diabetes mellitus with hyperglycemia Vitamin D deficiency Obesity (BMI 30-39.9) Asthma Hypertension Peripheral vascular disease Osteopenia Hypercholesterolemia Surgical History History of tonsillectomy Family History Mother Ovarian cancer Father No problems noted. Son No problems noted. Daughter Polymyositis Social History Housing: House Alcohol intake: never Patient Tobacco Use Status: Never used Tobacco e-Cigarette/Vaping Use: Never Used Second Hand Smoke Exposure: Yes service: No Current occupational status: retired Cognitive needs: No Hearing needs: No Vision needs: Yes (reading glasses ) Questionnaire Thrive Questionnaire Date Thrive assessed: 11/24/22 I am a: Patient What is your living situation today?: I have a steady place to live Within the past 12 months, did the food you bought not last and you didn't have the money to get more?: Never true Within the past 12 months, did you worry whether your food would run out before you got money to buy more?: Never true Do you have trouble paying for medicines?: No Do you have trouble getting transportation to medical appointments?: No Do you have trouble paying your heating and electricity bill?: No Do you have trouble taking care of your child, family member or friend?: No Do you have trouble with day-to-day activities such as bathing, preparing meals, shopping, managing finances, etc.?: No Are you currently unemployed and looking for a job?: No Are you interested in more education?: No Please select the resources that you would like help with: None THRIVE Score: 0 AUDIT C Alcohol Use Questionnaire (AUDIT-C) 1. How often do you have a drink containing alcohol?: Never 2. How many drinks containing alcohol do you have on a typical day when you are drinking?: 1 or 2 (0) 3. How often do you have six or more drinks on one occasion?: Never Total Score: 0 Score Reviewed/Action Taken: No LINDA-7 AMB Questionnaire LINDA-7 Date LINDA - 7 assessed: 11/24/22 Source: Developed by Drs. Quique Benjamin, Karishma Bangura, Ralf Mares and colleagues, with an educational olivier from [employer]. Physical exam (Primary Care) Vital Signs: Last Vital Signs Pulse 83 12/28/23 14:21 BP 132/74 12/28/23 14:21 Pulse Ox 97 12/28/23 14:21 Oxygen Delivery Method Room Air 12/28/23 14:21 BMI result Body Mass Index 33.3 Tobacco/Smoking Status: Tobacco use Status Tobacco use date assessed 12/28/23 12/28/23 14:23 Patient Tobacco Use Status Never used Tobacco 12/28/23 14:23 e-Cigarette/Vaping Use Never Used 12/28/23 14:23 Thrive Assessment: Date of Thrive Assessment Date Thrive assessed 11/24/22 12/28/23 14:23 Const General: alert; No acute distress Eyes Conjunctivae: conjunctivae normal Resp Auscultation: clear to auscultation bilaterally Cardio Rate: regular rate Rhythm: regular rhythm GI Inspection: Yes normal to inspection Extrem General: Yes normal to inspection and No edema Results AMB Hemoglobin A1c AMB Hemoglobin A1c 6.8 % Last Edit by ZACKERY Marmolejo on 12/28/23 14:35 Results Reviewed Results Reviewed: Laboratory Last Values Hgb A1c (Clinic) 6.8 % (4.0-6.0) H 12/28/23 14:23 Assessment and Plan Assessment & Plan (1) Type 2 diabetes mellitus with hyperglycemia: Comment: Dr. Cai(retired), Dr. Clark, dr. Davies Code(s): E11.65 - Type 2 diabetes mellitus with hyperglycemia Qualifiers: Diabetes mellitus terminal superintendent insulin use: without terminal superintendent use Qualified Code(s): E11.65 - Type 2 diabetes mellitus with hyperglycemia Plan: Decrease the amount of carbohydrate intake, pasta, bread, rice and potatoes are all sugar and that is aside from all the sweet stuff, remember that fruits are good but they are Sweet also. Hemoglobin A1c goal of less than 7.0 diet controlled (2) Obesity (BMI 30-39.9): Code(s): E66.9 - Obesity, unspecified Plan: Diet and exercise (3) Hypercholesterolemia: Code(s): E78.00 - Pure hypercholesterolemia, unspecified Plan: Avoid fried foods, chicken skin, eggs, butter margarine, pastries and meat. Be it pork or beef they have a lot of cholesterol LDL goal of less than 70 and triglyceride of less than 150. Patient again on diet control. declined additional med (4) Hypertension: Code(s): I10 - Essential (primary) hypertension Qualifiers: Hypertension type: essential hypertension Qualified Code(s): I10 - Essential (primary) hypertension Plan: Continue with blood pressure medication. Decrease salt intake and exercise on amlodipine 5 mg once a day lisinopril 2.5 mg once a day (5) Asthma: Comment: PFT normal January 2019 Dr. Gilbert Code(s): J45.909 - Unspecified asthma, uncomplicated Qualifiers: Asthma severity: mild Asthma persistence: intermittent Asthma complication type: uncomplicated Qualified Code(s): J45.20 - Mild intermittent asthma, uncomplicated Plan: Stable and not requiring any inhaler (6) Atrial fibrillation: Comment: diagnosed 03/[address] Yuan cardiology Code(s): I48.91 - Unspecified atrial fibrillation Plan: Follows up with Cardiology continuing good anticoagulation with Coumadin (7) Lumbar degenerative disc disease: Code(s): M51.36 - Other intervertebral disc degeneration, lumbar region Plan: Keep active and lose the weight (8) Varicose veins of right lower extremity with inflammation: Code(s): I83.11 - Varicose veins of right lower extremity with inflammation Plan: When sitting down elevate the legs, exercise, and support stockings Orders: Orders AMB Hemoglobin A1c Today E11.65 - Type 2 diabetes mellitus with hyperglycemia Coding Level of Care Code Est Pt Level 4 (92670) Diagnoses Type 2 diabetes mellitus with hyperglycemia, without long-term current use of insulin E11.65 Diabetes mellitus fpc insulin use: without fpc use Obesity (BMI 30-39.9) E66.9 Hypercholesterolemia E78.00 Essential hypertension I10 Hypertension type: essential hypertension Mild intermittent asthma without complication J45.20 Asthma severity: mild Asthma persistence: intermittent Asthma complication type: uncomplicated Atrial fibrillation I48.91 Lumbar degenerative disc disease M51.36 Varicose veins of right lower extremity with inflammation I83.11
== END 2023-12-28 14:58 | disposition home or self-care (01) ==
PROVIDERS: PCP Internal Medicine; Visit Provider Internal Medicine
DX: E11.65 Type 2 diabetes mellitus with hyperglycemia (principal); I48.91 Unspecified atrial fibrillation; E66.9 Obesity, unspecified; Z68.33 Body mass index [BMI] 33.0-33.9, adult; E78.00 Pure hypercholesterolemia, unspecified; I10 Essential (primary) hypertension; J45.20 Mild intermittent asthma, uncomplicated; M51.36 Other intervertebral disc degeneration, lumbar region; I83.11 Varicose veins of right lower extremity with inflammation
CPT/HCPCS: 83036; 99214

== ENCOUNTER 2024-05-02 16:03 | Outpatient (AMB) | payer MEDICARE, SELFPAY ==
[2024-05-02 16:05] VITALS: BP 140/72; PULSE 64; O2SAT 98; BMI 33.8
--- NOTE | 2024-05-02 16:05 | A.OFFPC_ITS ---
Vital Signs 05/02/24 16:05 Height 5 ft 3 in Weight 191 lb BMI 33.8 BP 140/72 H Blood Pressure Location Lt brachial Position Sitting Pulse 64 Pulse Source Pulse Oximeter Pulse Oximetry (%) 98 Oxygen Delivery Method Room Air Intake Visit Reasons: 4 Month F/U Allergies levofloxacin [Levaquin] Allergy (Unknown, Verified 05/02/24 16:12) Rash Clindamycin HCl Allergy (Unknown, Uncoded 05/02/24 16:12) Rash shrimps Allergy (Unknown, Uncoded 05/02/24 16:12) Rash Tobacco use date assessed: 12/28/23 Fall risk assessment: No Falls in past year Last assessed Fall Risk: 05/02/24 Dental Screening Dental Screen Date: 12/28/23 HPI 4 Month F/U HPI Details 73-year-old obese female with controlled diabetes mellitus hypertension hypercholesterolemia atrial fibrillation hypertension lumbar degenerative disc disease coming in for follow-up. Last seen in 03/13/2024. Patient's bone density is due, colonoscopy is up-to-date mammogram is up-to-date. Review of the notes patient has seen Cardiology EPS Dr. Spencer 04/11/2024 for the palpitations concern about watchman's device due to patient not wanting to be on anticoagulation advised Holter monitor, no complications of hypertension diabetes does endorse hair loss unlikely who that she would be a candidate for watchman's device. Also was told the need to be on Eliquis pre and post watchman's. Advised to start on Eliquis. Patient had an echocardiogram done 01/19/2024 showing normal left atrial size left ventricular size EF 55-60% mild dilatation right atrium focal thickened aortic valve no stenosis trace mitral insufficiency. Patient has seen hematology oncology for the annual breast exam up-to-date with mammogram 05/13/2024 patient also had a nuclear stress test negative 12/14/2023. Blood work done 10/2023 no anemia, AIC 6.7 High vitamin b 12 1255, BS 127 LDL 154 HDL 62, Trig 79BNP 1056 TSH n PFSH Medical History (Updated 05/02/24 @ 16:40 by Cain Lyman MD) Atrial fibrillation Cataract Cataract Vitreous detachment Wandering atrial pacemaker Type 2 diabetes mellitus with hyperglycemia Vitamin D deficiency Obesity (BMI 30-39.9) Asthma Hypertension Peripheral vascular disease Osteopenia Hypercholesterolemia Surgical History History of tonsillectomy Family History Mother Ovarian cancer Father No problems noted. Son No problems noted. Daughter Polymyositis Social History Housing: House Alcohol intake: never Patient Tobacco Use Status: Never used Tobacco e-Cigarette/Vaping Use: Never Used Second Hand Smoke Exposure: Yes service: No Current occupational status: retired Cognitive needs: No Hearing needs: No Vision needs: Yes (reading glasses ) Questionnaire PHQ-9 Over the last 2 weeks, how often have you been bothered by any of the following problems? 1. Little interest or pleasure in doing things: not at all 2. Feeling down, depressed, or hopeless: not at all 3. Trouble falling or staying asleep, or sleeping too much: not at all 4. Feeling tired or having little energy: not at all 5. Poor appetite or overeating: not at all 6. Feeling bad about yourself - or that you are a failure or have let yourself or your family down: not at all 7. Trouble concentrating on things, such as reading the newspaper or watching television: not at all 8. Moving or speaking so slowly that other people could have noticed. Or the opposite - being so fidgety or restless that you have been moving around a lot more than usual: not at all 9. Thoughts that you would be better off or of hurting yourself in some way: not at all Total score: 0 Depression Screening Interpretation: Negative Depression Screening Done: Yes 99823 - PHQ-9 Billing: Yes Source: Developed by Drs. Quique Benjamin, Karishma Bangura, Ralf Mares and colleagues, with an educational olivier from [employer]. Thrive Questionnaire Date Thrive assessed: 05/02/24 I am a: Patient What is your living situation today?: I have a steady place to live Within the past 12 months, did the food you bought not last and you didn't have the money to get more?: Never true Within the past 12 months, did you worry whether your food would run out before you got money to buy more?: Never true Do you have trouble paying for medicines?: No Do you have trouble getting transportation to medical appointments?: No Do you have trouble paying your heating and electricity bill?: No Do you have trouble taking care of your child, family member or friend?: No Do you have trouble with day-to-day activities such as bathing, preparing meals, shopping, managing finances, etc.?: No Are you currently unemployed and looking for a job?: No Are you interested in more education?: No Please select the resources that you would like help with: None THRIVE Score: 0 LINDA-7 AMB Questionnaire LINDA-7 Date LINDA - 7 assessed: 05/02/24 Feeling nervous, anxious, or on edge: 0 = Not at all Not being able to stop or control worryin = Not at all Worrying too much about different things: 0 = Not at all Trouble relaxin = Not at all Being so restless that it is hard to sit still: 0 = Not at all Becoming easily annoyed or irritable: 0 = Not at all Feeling afraid as if something awful might happen: 0 = Not at all Total LINDA-7 score (0-4 normal; 5-9 mild; 10-14 moderate; 15-21 severe): 0 Source: Developed by Drs. Quique Benjamin, Karishma Bangura, Ralf Mares and colleagues, with an educational olivier from [employer]. Physical exam (Primary Care) Vital Signs: Last Vital Signs Pulse 64 05/02/24 16:05 BP 140/72 H 05/02/24 16:05 Pulse Ox 98 05/02/24 16:05 Oxygen Delivery Method Room Air 05/02/24 16:05 BMI result Body Mass Index 33.8 Tobacco/Smoking Status: Tobacco use Status Tobacco use date assessed 12/28/23 05/02/24 16:06 Patient Tobacco Use Status Never used Tobacco 05/02/24 16:06 e-Cigarette/Vaping Use Never Used 05/02/24 16:06 PHQ-9: PHQ-9 Score PHQ-9: Total score 0 05/02/24 16:06 Depression Screening Interpretation: Negative Thrive Assessment: Date of Thrive Assessment Date Thrive assessed 05/02/24 05/02/24 16:06 Const General: alert; No acute distress Eyes Conjunctivae: conjunctivae normal Resp Auscultation: clear to auscultation bilaterally Cardio Rate: regular rate Rhythm: regular rhythm GI Inspection: Yes normal to inspection Extrem General: Yes normal to inspection and No edema Assessment and Plan Assessment & Plan (1) Type 2 diabetes mellitus with hyperglycemia: Comment: Dr. Cai(retired), Dr. Clark, dr. Davies Code(s): E11.65 - Type 2 diabetes mellitus with hyperglycemia Qualifiers: Diabetes mellitus shelter insulin use: without shelter use Keith lified Code(s): E11.65 - Type 2 diabetes mellitus with hyperglycemia Plan: Decrease the amount of carbohydrate intake, pasta, bread, rice and potatoes are all sugar and that is aside from all the sweet stuff, remember that fruits are good but they are Sweet also. Hemoglobin A1c goal of less than 7.0. Patient is diet controlled (2) Hypertension: Code(s): I10 - Essential (primary) hypertension Qualifiers: Hypertension type: essential hypertension Qualified Code(s): I10 - Essential (primary) hypertension Plan: Continue with blood pressure medication. Decrease salt intake and exercise takes amlodipine 5 mg once a day lisinopril 2.5 mg once a day (3) Hypercholesterolemia: Code(s): E78.00 - Pure hypercholesterolemia, unspecified Plan: Avoid fried foods, chicken skin, eggs, butter margarine, pastries and meat. Be it pork or beef they have a lot of cholesterol LDL goal of less than 100 and triglyceride of less than 150 declined cholesterol medication (4) Obesity (BMI 30-39.9): Code(s): E66.9 - Obesity, unspecified Plan: Diet and exercise (5) Asthma: Comment: PFT normal January 2019 Dr. Gilbert Code(s): J45.909 - Unspecified asthma, uncomplicated Qualifiers: Asthma severity: mild Asthma persistence: intermittent Asthma complication type: uncomplicated Qualified Code(s): J45.20 - Mild intermittent asthma, uncomplicated Plan: Continue with the inhaler as needed (6) Atrial fibrillation: Comment: diagnosed 03/[address] Yuan cardiology Code(s): I48.91 - Unspecified atrial fibrillation Plan: Patient has been placed on Eliquis 5 mg twice a day and has inquired about the watchman's device and did read about notes from Cardiology that unlikely to receive the watchman's device. (7) Hypersomnia: Code(s): G47.10 - Hypersomnia, unspecified Plan: has been seen by Pulmonary and has a pending sleep study Orders: Orders AMB Hemoglobin A1c Today E11.65 - Type 2 diabetes mellitus with hyperglycemia Comprehensive Met. 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
== END 2024-05-02 16:52 | disposition home or self-care (01) ==
PROVIDERS: PCP Internal Medicine; Visit Provider Internal Medicine
DX: E11.65 Type 2 diabetes mellitus with hyperglycemia (principal)
CPT/HCPCS: 83036; 99214; G2211

== ENCOUNTER 2024-07-17 15:44 | Outpatient (AMB) | payer MEDICARE, SELFPAY ==
--- NOTE | 2024-07-17 15:47 | A.OFFPC_ITS ---
Vital Signs 07/17/24 15:50 Height 5 ft 3 in Weight 192 lb BMI 34.0 BP 118/74 Blood Pressure Location Lt brachial Position Sitting Pulse 73 Pulse Source Pulse Oximeter Pulse Oximetry (%) 95 Oxygen Delivery Method Room Air Intake Visit Reasons: Multiple Concerns Director Women Required: No Accompanied by: Self / Same As Patient Allergies levofloxacin [Levaquin] Allergy (Unknown, Verified 07/17/24 15:52) Rash Clindamycin HCl Allergy (Unknown, Uncoded 05/02/24 16:12) Rash shrimps Allergy (Unknown, Uncoded 05/02/24 16:12) Rash Tobacco use date assessed: 12/28/23 Fall risk assessment: 1 Fall in past year Last assessed Fall Risk: 07/17/24 Dental Screening Dental Screen Date: 07/17/24 Did you have a dental visit in the last 12 months?: Yes Did you have a dental problem in the last 6 months where you did not have access to dental care?: No Was dental information given to patient?: Patient has dentist HPI Multiple Concerns HPI Details 74-year-old obese female with diabetes m ellitus hypertension hypercho lesterolemia asthma atrial fibrillation coming in for follow-up. Last seen in 05/13/2024. Patient is due for bone density colonoscopy. Mammograms up-to-date. Review of the notes was seen by Pulmonary for mild persistent asthma Pulmicort added hold off Advair since she has AFib home sleep study was negative was advised sleep study in lab. Patient did have blood work done in 05/29/2024 with normal blood count no anemia good platelet count and white blood cell sugar was 129 at that time renal function is normal potassium was mildly elevated at 5.3 liver function is normal hemoglobin A1c of 6.7. LDL cholesterol done 10/2023 LDL 154 goal is < 100. has hair loss and will see dermatology next year [facility] Medical History (Updated 07/17/24 @ 16:45 by Cain Lyman MD) Atrial fibrillation Cataract Cataract Vitreous detachment Wandering atrial pacemaker Type 2 diabetes mellitus with hyperglycemia Vitamin D deficiency Obesity (BMI 30-39.9) Asthma Hypertension Peripheral vascular disease Osteopenia Hypercholesterolemia Surgical History History of tonsillectomy Family History Mother Ovarian cancer Father No problems noted. Son No problems noted. Daughter Polymyositis Social History Housing: House Alcohol intake: never Patient Tobacco Use Status: Never used Tobacco e-Cigarette/Vaping Use: Never Used Second Hand Smoke Exposure: Yes service: No Current occupational status: retired Cognitive needs: No Hearing needs: No Vision needs: Yes (reading glasses ) Questionnaire PHQ-9 Over the last 2 weeks, how often have you been bothered by any of the following problems? 1. Little interest or pleasure in doing things: not at all 2. Feeling down, depressed, or hopeless: not at all 3. Trouble falling or staying asleep, or sleeping too much: not at all 4. Feeling tired or having little energy: not at all 5. Poor appetite or overeating: not at all 6. Feeling bad about yourself - or that you are a failure or have let yourself or your family down: not at all 7. Trouble concentrating on things, such as reading the newspaper or watching television: not at all 8. Moving or speaking so slowly that other people could have noticed. Or the opposite - being so fidgety or restless that you have been moving around a lot more than usual: not at all 9. Thoughts that you would be better off or of hurting yourself in some way: not at all Total score: 0 Depression Screening Interpretation: Negative Depression Screening Done: Yes 11362 - PHQ-9 Billing: Yes Source: Developed by Drs. Quique Benjamin, Karishma Bangura, Ralf Mares and colleagues, with an educational oilvier from [employer]. Thrive Questionnaire Date Thrive assessed: 07/17/24 I am a: Patient What is your living situation today?: I have a steady place to live Within the past 12 months, did the food you bought not last and you didn't have the money to get more?: Never true Within the past 12 months, did you worry whether your food would run out before you got money to buy more?: Never true Do you have trouble paying for medicines?: No Do you have trouble getting transportation to medical appointments?: No Do you have trouble paying your heating and electricity bill?: No Do you have trouble taking care of your child, family member or friend?: No Do you have trouble with day-to-day activities such as bathing, preparing meals, shopping, managing finances, etc.?: No Are you currently unemployed and looking for a job?: No Are you interested in more education?: No Please select the resources that you would like help with: None Currently or been in a relationship where the following occur: No concerns reported THRIVE Score: 0 LINDA-7 AMB Questionnaire LINDA-7 Date LINDA - 7 assessed: 07/17/24 Feeling nervous, anxious, or on edge: 0 = Not at all Not being able to stop or control worryin = Not at all Worrying too much about different things: 0 = Not at all Trouble relaxin = Not at all Being so restless that it is hard to sit still: 0 = Not at all Becoming easily annoyed or irritable: 0 = Not at all Feeling afraid as if something awful might happen: 0 = Not at all Total LINDA-7 score (0-4 normal; 5-9 mild; 10-14 moderate; 15-21 severe): 0 Source: Developed by Drs. Quique Benjamin, Karishma Bangura, Ralf Mares and colleagues, with an educational olivier from [employer]. Physical exam (Primary Care) Vital Signs: Last Vital Signs Pulse 73 07/17/24 15:50 BP 118/74 07/17/24 15:50 Pulse Ox 95 07/17/24 15:50 Oxygen Delivery Method Room Air 07/17/24 15:50 BMI result Body Mass Index 34.0 Tobacco/Smoking Status: Tobacco use Status Tobacco use date assessed 12/28/23 07/17/24 15:50 Patient Tobacco Use Status Never used Tobacco 07/17/24 15:50 e-Cigarette/Vaping Use Never Used 07/17/24 15:50 PHQ-9: PHQ-9 Score PHQ-9: Total score 0 07/17/24 15:50 Depression Screening Interpretation: Negative Thrive Assessment: Date of Thrive Assessment Date Thrive assessed 07/17/24 07/17/24 15:50 Currently or been in a relationship where the following occur: No concerns reported Const General: alert; No acute distress Eyes Conjunctivae: conjunctivae normal Resp Auscultation: clear to auscultation bilaterally Cardio Rate: regular rate Rhythm: regular rhythm GI Inspection: Yes normal to inspection Extrem General: Yes normal to inspection and No edema Assessment and Plan Assessment & Plan (1) Type 2 diabetes mellitus with hyperglycemia: Comment: Dr. Cai(retired), Dr. Clark, dr. Davies Code(s): E11.65 - Type 2 diabetes mellitus with hyperglycemia Qualifiers: Diabetes mellitus terminal clerk insulin use: without terminal clerk use Qualified Code(s): E11.65 - Type 2 diabetes mellitus with hyperglycemia Plan: Decrease the amount of carbohydrate intake, pasta, bread, rice and potatoes are all sugar and that is aside from all the sweet stuff, remember that fruits are good but they are Sweet also. Hemoglobin A1c of 6.7. Patient is at goal diet controlled (2) Obesity (BMI 30-39.9): Code(s): E66.9 - Obesity, unspecified Plan: Diet and exercise (3) Asthma: Comment: PFT normal January 2019 Dr. Gilbert Code(s): J45.909 - Unspecified asthma, uncomplicated Qualifiers: Asthma severity: mild Asthma persistence: intermittent Asthma complication type: uncomplicated Qualified Code(s): J45.20 - Mild intermittent asthma, uncomplicated Plan: Patient follows up with Pulmonary placed on Pulmicort and short-acting beta agonist (4) Hypertension: Code(s): I10 - Essential (primary) hypertension Qualifiers: Hypertension type: essential hypertension Qualified Code(s): I10 - Essential (primary) hypertension Plan: Continue with blood pressure medication. Decrease salt intake and exercise on lisinopril 2.5 mg once a day and amlodipine 5 mg once a day (5) Hypercholesterolemia: Code(s): E78.00 - Pure hypercholesterolemia, unspecified Plan: Avoid fried foods, chicken skin, eggs, butter margarine, pastries and meat. Be it pork or beef they have a lot of cholesterol LDL goal of less than 100 and triglyceride of less than 150. Diet-controlled (6) Osteopenia: Code(s): M85.80 - Other specified disorders of bone density and structure, unspecified site Plan: Patient is reminded about bone density (7) Atrial fibrillation: Comment: diagnosed 03/[address] Yuan cardiology Code(s): I48.91 - Unspecified atrial fibrillation Plan: Continue with anticoagulation with Eliquis and last blood work was 06/13/2024 (8) Hypersomnia: Code(s): G47.10 - Hypersomnia, unspecified (9) Brittle hair: Code(s): L67.8 - Other hair color and hair shaft abnormalities Plan: will be seeing Dermatology Orders: Orders RT PSG in-lab sleep study Today G47.10 - Hypersomnia, unspecified Comprehensive Met. Panel 3 Months E11.65 - Type 2 diabetes mellitus with hyperglycemia Thyroid Stimulating Hormone 3 Months E11.65 - Type 2 diabetes mellitus with hyperglycemia Lipid Panel 3 Months E11.65 - Type 2 diabetes mellitus with hyperglycemia, E78.00 - Pure hypercholesterolemia, unspecified Vitamin B12 and Folate 3 Months E11.65 - Type 2 diabetes mellitus with hyperglycemia Complete Blood Count Auto Diff 3 Months E11.65 - Type 2 diabetes mellitus with hyperglycemia Free T4 (Free Thyroxine) 3 Months E11.65 - Type 2 diabetes mellitus with hyperglycemia Microalbumin, Random (w Creat) 3 Months E11.65 - Type 2 diabetes mellitus with hyperglycemia Creatinine Urine 3 Months E11.65 - Type 2 diabetes mellitus with hyperglycemia Vitamin D 25-OH Total 3 Months E11.65 - Type 2 diabetes mellitus with hyperglycemia Hemoglobin A1c 3 Months E11.65 - Type 2 diabetes mellitus with hyperglycemia Coding Level of Care Code Est Pt Level 4 (37094) Diagnoses Type 2 diabetes mellitus with hyperglycemia, without long-term current use of insulin E11.65 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
[2024-07-17 15:50] VITALS: BP 118/74; PULSE 73; O2SAT 95; BMI 34.0
== END 2024-07-17 16:49 | disposition home or self-care (01) ==
PROVIDERS: PCP Internal Medicine; Visit Provider Internal Medicine
DX: E11.65 Type 2 diabetes mellitus with hyperglycemia (principal); I48.91 Unspecified atrial fibrillation; E66.9 Obesity, unspecified; Z68.34 Body mass index [BMI] 34.0-34.9, adult; J45.20 Mild intermittent asthma, uncomplicated; I10 Essential (primary) hypertension; E78.00 Pure hypercholesterolemia, unspecified; M85.80 Other specified disorders of bone density and structure, unspecified site; G47.10 Hypersomnia, unspecified; L67.8 Other hair color and hair shaft abnormalities

== ENCOUNTER → 2024-07-17 15:44 | Outpatient (BNVA) | payer MEDICARE, SELFPAY | PROVIDERS: PCP Internal Medicine; Visit Provider Internal Medicine | DX: E11.65 Type 2 diabetes mellitus with hyperglycemia (principal); E66.9 Obesity, unspecified; J45.20 Mild intermittent asthma, uncomplicated; I10 Essential (primary) hypertension; E78.00 Pure hypercholesterolemia, unspecified; I48.91 Unspecified atrial fibrillation; M85.80 Other specified disorders of bone density and structure, unspecified site; G47.10 Hypersomnia, unspecified; L67.8 Other hair color and hair shaft abnormalities | CPT/HCPCS: 99212 ==

== ENCOUNTER 2024-10-11 13:17 | Outpatient (AMB) | payer MEDICARE, SELFPAY ==
--- OUTSIDE RECORDS SUMMARY | 2024-10-11 13:19 | XMS_ITS | Continuity of Care Document ---
Author Organization [facility] Gustabo webster [facility] Address [address] [place] [address], [address] [place] [id number] Care Team Providers Care Reconciling Clerk Name Role Phone Po Cain SHEPARD Primary Care Physician [facility] Date(s): [facility]08[facility] [address], [address] [place] [id number] Encounter Type: Triage Allergies, Adverse Reactions, Alerts Substance Criticality Severity Reaction Reaction Severity Status clindamycin RASH Active Levaquin Active Shrimp Active Medications Amlodipine 5 mg, By Mouth, Daily, Maintenance, 02/12/15 5:15:09 PM EDT Start Date: 02/12/15 Status: Ordered Repeat number: 1 Calcium Carbonate By Mouth, 0 Refills, Maintenance, 05/28/11 2:29:49 PM EDT Start Date: 05/28/11 Status: Ordered Repeat number: 1 Co-Q10 By Mouth, 0 Refills, Maintenance, 12/06/12 7:12:00 PM EST Start Date: 12/06/12 Status: Ordered Repeat number: 1 Cranberry 0 Refills, Maintenance, 06/30/22 5:53:00 PM EDT, Partial fill upon patient request if the prescription is for a schedule II opioid drug. Start Date: 06/30/22 Status: Ordered Repeat number: 1 Ferrous Sulfate ER Refills 0, Maintenance, 06/30/22 5:54:00 PM EDT, Partial fill upon patient request if the prescription is for a schedule II opioid drug. Start Date: 06/30/22 Status: Ordered Repeat number: 1 Fish Oil = 1,000 mg, By Mouth, 0 Refills, Maintenance, 05/28/11 2:29:08 PM EDT Start Date: 05/28/11 Status: Ordered Repeat number: 1 Garlic 0 Refills, Maintenance, 06/11/20 7:08:00 PM EDT Start Date: 06/11/20 Status: Ordered Repeat number: 1 Gingko Biloba = 120 mg, By Mouth, Daily, 0 Refills, Maintenance, 03/09/17 6:21:48 PM EDT Start Date: 03/09/17 Status: Ordered Repeat number: 1 Glucosamine = 1,500 mg, By Mouth, Daily, 0 Refills, Maintenance, 11/10/16 4:55:35 PM EST Start Date: 11/10/16 Status: Ordered Repeat number: 1 lisinopril 2.5 mg oral tablet 2.5 mg, 1, tablet, By Mouth, Daily, Refills 0, Maintenance, 11/10/16 4:54:44 PM EST Start Date: 11/10/16 Status: Ordered Repeat number: 1 Magnesium Carbonate 0 Refills, Maintenance, 12/06/12 7:12:18 PM EST Start Date: 12/06/12 Status: Ordered Repeat number: 1 Niacin By Mouth, Refills 0, Maintenance, 05/22/19 4:47:49 PM EDT Start Date: 05/22/19 Status: Ordered Repeat number: 1 ProAir HFA 2 puffs, Inhalation, 4 times a day, as needed, 0 Refills, Maintenance, 02/12/15 5:14:57 PM EDT Start Date: 02/12/15 Status: Ordered Repeat number: 1 Turmeric = 500 mg, By Mouth, Daily, 0 Refills, Maintenance, 06/30/22 5:53:00 PM EDT, Partial fill upon patientrequest if the prescription is for a schedule II opioid drug. Start Date: 06/30/22 Status: Ordered Repeat number: 1 Vitamin C By Mouth, Daily, 0 Refills, Maintenance, 03/09/17 6:22:06 PM EDT Start Date: 03/09/17 Status: Ordered Repeat number: 1 Vitamin E By Mouth, Daily, 0 Refills, Maintenance, 06/30/22 5:53:00 PM EDT, Partial fill upon patient request if the prescription is for a schedule II opioid drug. Start Date: 06/30/22 Status: Ordered Repeat number: 1 Warfarin By Mouth, Daily, 0 Refills, Maintenance, 06/30/22 5:53:00 PM EDT Start Date: 06/30/22 Status: Ordered Repeat number: 1 Zinc = 140 mg, By Mouth, Daily, 0 Refills, Maintenance, 07/06/23 6:00:00 PM EDT, Partial fill upon patient request if the prescription is for a schedule II opioid drug. Start Date: 07/06/23 Status: Ordered Repeat number: 1 Problem List Condition Confirmation Course Effective Dates Status Health St atus Informant Asthma Confirmed Active Hypertension Confirmed Active Mixed incontinence Confirmed Active Nocturia Confirmed Active Obese class I Confirmed Active Prediabetes Confirmed Active Social History Social History Type Response Smoking Status Never smoker; Tobacc o user in household: No entered on: 03/15/18 Sex Sex Representation Female (finding) Patient Care team information Care Team Personnel Name: Cain Lmyan MD Position: Reference Physician Member Role: PCP [address]: [address] [place] [address] Telecom: Care Team Related Persons Name: JULIAN DYSON Name: CATARINO DYSON Insurance Providers Guarantor name: CHASE DYSON Health Plan Information #: 1 Payer: [facility] [employer] Member Number: NA Policy Number: NA Group Number: NA
[2024-10-11 13:27] VITALS: BP 110/76; PULSE 85; O2SAT 94; BMI 34.8
--- NOTE | 2024-10-11 13:27 | MHC.PC.OV ---
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 [employer] Clerk Required: No Accompanied by: Self / Same As Patient Allergies levofloxacin [Levaquin] Allergy (Unknown, Verified 10/11/24 13:27) Rash Clindamycin HCl Allergy (Unknown, Uncoded 10/11/24 13:27) Rash shrimps Allergy (Unknown, Uncoded 10/11/24 13:27) Rash Medication List - Last Reconciled 10/11/24 by Cain Carney Po, amlodipine 5 mg PO DAILY apixaban (Eliquis) 5 mg PO BID ascorbic acid (vitamin C) 1 g PO DAILY budesonide 180 mcg/actuation (Pulmicort Flexhaler) 1 inh inhalation DAILY cholecalciferol (vitamin D3) 25 mcg PO DAILY coenzyme Q10 10 mg PO TID cranberry fruit concentrate (Azo Cranberry) 250 mg PO TID diclofenac sodium 1% (Voltaren Arthritis Pain) 4 grams topical QID [eye support PO] glucosamine sulfate (Glucosamine) 500 mg PO DAILY grape seed extract 150 mg PO DAILY lisinopril 2.5 mg PO DAILY [Natures Bounty PO] eznmkiyt-zlnb-pbbvg-oreg-capry 100 mg-150 mg- 50 mg-150 mg caps PO ubidecarenone-omega 3-vit E 25-150-200 mg-mg-unit (Co J-11-Yalgzap E-Fish Oil) 1 cap PO DAILY Tobacco use date assessed: 10/11/24 Fall risk assessment: No Falls in past year Last assessed Fall Risk: 10/11/24 Dental Screening Dental Screen Date: 10/11/24 Did you have a dental visit in the last 12 months?: Yes Did you have a dental problem in the last 6 months where you did not have access to dental care?: No Was dental information given to patient?: Patient has dentist HPI PE HPI Details The patient is a 74-year-old female presenting for a physical examination and medication follow-up. She has a history of coronary artery disease with a secondary myocardial infarction. Currently, she has no marketing community liaison and self-reports using nitroglycerin regularly. A referral to a marketing community liaison has been made previously, but its status is unclear. She uses amoxicillin for a suspected dental abscess and inquires about possible clindamycin use due to ineffectiveness of her current medication, though she has experienced allergies to clindamycin in the past. She reports intermittent shortness of breath and chest discomfort which were evaluated with nuclear imaging with normal results. Her medical history is notable for diabetes mellitus, controlled with diet, and she has discussed her interest in a diabetes self-management program. The patient also has atrial fibrillation, for which she takes Eliquis. Additionally, she is on a regimen of amlodipine for hypertension, which may contribute to peripheral edema. The patient reports feeling more fatigued since gaining weight, suggesting a possible link to her increased need for rest and naps. Macular degeneration is managed with eye health supplements. She also has hair thinning and breakage, which she attributes to aging but continues to take biotin supplements. Her sleep is impacted by suspected obstructive sleep apnea; at-home testing was inconclusive. A formal sleep study is desired. Regarding toenail health, she treats fungal infections with topical solutions, though she is hesitant to take systemic antifungal medication due to the necessary liver function monitoring. - Blood pressure control with anti-hypertensive medications - Anticoagulation therapy with Eliquis for atrial fibrillation - Blood sugar management for diabetes without medication adjustment - Evaluation for obstructive sleep apnea with sleep study referral - Eye health supplements for macular degeneration - Toenail fungal treatment with topical applications - Weight management discussed; encouraged to maintain a balanced diet - Lives with family; daughter is caregiver and noted to assist with appointments - Engages in a predominantly sedentary lifestyle with some reported increase in body weight - Dietary habits include spicy and carb-heavy [place] cuisine, although efforts to consume a balanced diet with supplements - No alcohol or tobacco use - - Cardiovascular: Reports chest pressure, especially when tired - Respiratory: Reports occasional shortness of breath - Gastrointestinal: Reports occasional heartburn, related to spicy food intake - Neurological: Reports dizziness when bending over - Dermatological: Reports hair thinning and nail fungal infection - Labs: Vitamin B12 level of 907, normal white blood cell count and platelet count - Imaging: Prior nuclear stress test showing normal cardiac function - Labs: Vitamin B12 level of 907, normal white blood cell count and platelet count - Imaging: Prior nuclear stress test showing normal cardiac function Patient complains of getting sleepy all the time takes a nap in the afternoon after eating gets to be sleepy does not get sleepy when talking to somebody but in the afternoon when watching TV patient tense sleep and as a passenger get sleepy when the trip is more than an hour. Patient does not drive so does not notice any sleepiness. [facility] Medical History (Updated 10/11/24 @ 13:37 by Cain Lyman MD) Atrial fibrillation Cataract Cataract Vitreous detachment Wandering atrial pacemaker Type 2 diabetes mellitus with hyperglycemia Vitamin D deficiency Obesity (BMI 30-39.9) Asthma Hypertension Peripheral vascular disease Osteopenia Hypercholesterolemia Surgical History History of tonsillectomy Family History Mother Ovarian cancer Father No problems noted. Son No problems noted. Daughter Polymyositis Social History Housing: House Alcohol intake: never Patient Tobacco Use Status: Never used Tobacco e-Cigarette/Vaping Use: Never Used Second Hand Smoke Exposure: Yes service: No Current occupational status: retired Cognitive needs: No Hearing needs: No Vision needs: Yes (reading glasses ) Questionnaire PHQ-9 Over the last 2 weeks, how often have you been bothered by any of the following problems? 1. Little interest or pleasure in doing things: not at all 2. Feeling down, depressed, or hopeless: not at all 3. Trouble falling or staying asleep, or sleeping too much: nearly every day 4. Feeling tired or having little energy: nearly every day 5. Poor appetite or overeating: nearly every day 6. Feeling bad about yourself - or that you are a failure or have let yourself or your family down: not at all 7. Trouble concentrating on things, such as reading the newspaper or watching television: not at all 8. Moving or speaking so slowly that other people could have noticed. Or the opposite - being so fidgety or restless that you have been moving around a lot more than usual: not at all 9. Thoughts that you would be better off or of hurting yourself in some way: not at all Total score: 9 Source: Developed by Drs. Quique Benjamin, Ralf Curry and colleagues, with an educational olivier from [employer]. Thrive Questionnaire Date Thrive assessed: 10/11/24 I am a: Patient What is your living situation today?: I have a steady place to live Within the past 12 months, did the food you bought not last and you didn't have the money to get more?: Never true Within the past 12 months, did you worry whether your food would run out before you got money to buy more?: Never true Do you have trouble paying for medicines?: No Do you have trouble getting transportation to medical appointments?: Yes Do you have trouble paying your heating and electricity bill?: No Do you have trouble taking care of your child, family member or friend?: No Do you have trouble with day-to-day activities such as bathing, preparing meals, shopping, managing finances, etc.?: No Are you interested in more education?: No Please select the resources that you would like help with: None Currently or been in a relationship where the following occur: No concerns reported THRIVE Score: 1 AUDIT C Alcohol Use Questionnaire (AUDIT-C) 1. How often do you have a drink containing alcohol?: Never Total Score: 0 LINDA-7 AMB Questionnaire LINDA-7 Date LINDA - 7 assessed: 10/11/24 Feeling nervous, anxious, or on edge: 0 = Not at all Not being able to stop or control worryin = Not at all Worrying too much about different things: 0 = Not at all Trouble relaxin = Not at all Being so restless that it is hard to sit still: 0 = Not at all Becoming easily annoyed or irritable: 0 = Not at all Feeling afraid as if something awful might happen: 0 = Not at all Total LINDA-7 score (0-4 normal; 5-9 mild; 10-14 moderate; 15-21 severe): 0 Source: Developed by Drs. Quique Benjamin, Ralf Curry and colleagues, with an educational olivier from [employer]. Review of Systems Const Denies poor appetite and Denies weakness Eyes Denies no additional complaints ENT Reports Normal hearing present, Denies dizziness, Denies nasal congestion, Denies tinnitus and Denies sore throat Card Denies chest pain, Denies syncope, Denies rapid heart rate and Denies dyspnea Resp Denies cough and Denies dyspnea GI Denies change in stool character, Reports constipation, Denies diarrhea, Denies nausea and Denies vomiting Denies urinary frequency, Denies difficulty voiding and Denies dysuria Neuro Reports Normal hearing present, Denies confusion, Denies dizziness, Denies syncope and Denies weakness Psych Denies confusion Physical exam (Primary Care) Vital Signs: Last Vital Signs Pulse 85 10/11/24 13:27 BP 110/76 10/11/24 13:27 Pulse Ox 94 10/11/24 13:27 Oxygen Delivery Method Room Air 10/11/24 13:27 Care Plan Goal for BP management: pedal pulse and pin prick good BMI result Body Mass Index 34.8 Tobacco/Smoking Status: Tobacco use Status Tobacco use date assessed 10/11/24 10/11/24 13:30 Patient Tobacco Use Status Never used Tobacco 10/11/24 13:30 e-Cigarette/Vaping Use Never Used 10/11/24 13:30 PHQ-9: PHQ-9 Score PHQ-9: Total score 9 10/11/24 13:38 Thrive Assessment: Date of Thrive Assessment Date Thrive assessed 10/11/24 10/11/24 13:30 Currently or been in a relationship where the following occur: No concerns reported Const General: No confusion Orientation/consciousness: No confusion HENDE Head: Yes normocephalic Ears: external ears normal and TM's normal bilaterally Face and sinus: Yes normal facial exam Mouth: moist mucous membranes Throat: Yes tonsils normal Eyes Conjunctivae: conjunctivae normal Pupils: Equal, round and reactive pupils present and Pupil accommodation reflex normal Direct Ophthalmoscopy: normal light reflex Neck Neck: No lymphadenopathy Thyroid: Thyroid normal Chest Chest palpation & inspection: normal inspection of the chest Resp Effort & Inspection: normal respiratory effort and no audible wheezes Auscultation: clear to auscultation bilaterally, no crackles, no wheezes and lung sounds not diminished Cardio Other: irregulatr rate and rhythm Peripheral pulses: radial pulses present and dorsalis pedis present GI Other: seeing gyne Palpation (GI): no masses Auscultation: normal bowel sounds and normoactive bowel sounds Rectal Exam - Female: deferred Skin Other: toe nail withwhitish discolored General skin exam: no rashes or lesions noted Rashes: no rashes Neuro General: No confusion Cranial nerves: Yes Equal, round and reactive pupils present and Yes Normal hearing present Cognition (Neuro): normal cognition Gait exam (Neuro): Normal gait present Motor exam (neuro): 5/5 motor strength present throughout Deep tendon reflexes (DTR's): Right brachioradialis reflex intensity grade: 2+, Left brachioradialis reflex intensity grade: 2+, Right patellar reflex intensity grade: 2+ and Left patellar reflex intensity grade: 2+ Extrem General: No edema Coding Level of Care Code Est Pt Prev Care >65y(75669) Diagnoses Annual physical exam Z00.00 Type 2 diabetes mellitus with hyperglycemia, without long-term current use of insulin E11.65 Diabetes mellitus long winder tender insulin use: without long winder tender use Obesity (BMI 30-39.9) E66.9 Essential hypertension I10 Hypertension type: essential hypertension Hypercholesterolemia E78.00 Osteopenia of multiple sites M85.89 Osteopenia location: multiple sites Atrial fibrillation I48.91 Hypersomnia G47.10 Assessment & Plan Assessment & Plan (1) Annual physical exam: Code(s): Z00.00 - Encounter for general adult medical examination without abnormal findings Category: Medical Plan: Patient is advised to eat healthy, keep well hydrated, keep active and have adequate sleep. (2) Type 2 diabetes mellitus with hyperglycemia: Comment: Dr. Cai(retired), Dr. Clark, dr. Davies Code(s): E11.65 - Type 2 diabetes mellitus with hyperglycemia Category: Medical Qualifiers: Diabetes mellitus long winder tender insulin use: without detention use Qualified Code(s): E11.65 - Type 2 diabetes mellitus with hyperglycemia Plan: Decrease the amount of carbohydrate intake, pasta, bread, rice and potatoes are all sugar and that is aside from all the sweet stuff, remember that fruits are good but they are Sweet also. Hemoglobin A1c goal of less than 7.0. Patient wishes to have endocrinology referral to [facility] but [facility] rejected. (3) Obesity (BMI 30-39.9): Code(s): E66.9 - Obesity, unspecified Category: Medical Plan: Diet and exercise (4) Hypertension: Code(s): I10 - Essential (primary) hypertension Category: Medical Qualifiers: Hypertension type: essential hypertension Qualified Code(s): I10 - Essential (primary) hypertension Plan: Continue with blood pressure medication. Decrease salt intake and exercise. Continue with lisinopril 2.5 mg once a day amlodipine 5 mg once a day (5) Hypercholesterolemia: Code(s): E78.00 - Pure hypercholesterolemia, unspecified Category: Medical Plan: Avoid fried foods, chicken skin, eggs, butter margarine, pastries and meat. Be it pork or beef they have a lot of cholesterol LDL goal of less than 100 and triglyceride of less than 150 patient declined cholesterol (6) Osteopenia: Code(s): M85.80 - Other specified disorders of bone density and structure, unspecified site Category: Medical Qualifiers: Osteopenia location: multiple sites Qualified Code(s): M85.89 - Other specified disorders of bone density and structure, multiple sites Plan: Discussed about follow-up bone density. (7) Atrial fibrillation: Comment: diagnosed 03/[address] Yuan cardiology Code(s): I48.91 - Unspecified atrial fibrillation Category: Medical Plan: Continue to follow up with Cardiology. Discussed about anticoagulation and renal testing. (8) Hypersomnia: Code(s): G47.10 - Hypersomnia, unspecified Category: Medical Plan: ordered sleep apnea Plan - Continue current medications including Eliquis for atrial fibrillation and amlodipine for hypertension, considering peripheral edema from the latter - Arrange formal sleep study for obstructive sleep apnea - Monitor and maintain diabetes management with consideration for participation in a diabetes self-management program - Encourage balanced diet focusing on glycemic control; suggest reduced intake of high-spice and high-carb foods - Continue eye health supplements for macular degeneration - Consider systemic antifungal treatment for toenail fungus, understanding risks and liver function monitoring - Address and monitor dental care with continued antibiotics as needed and follow-up with dentist I discussed the importance of continuing both anticoagulation with Eliquis and antihypertensive therapy to manage atrial fibrillation and hypertension more effectively. To address her concern about fatigue and potential obstructive sleep apnea, I recommended arranging a formal sleep study, noting the limitations of her previous home testing results. We discussed that her dietary choices could be contributing to occurrences of heartburn and emphasized maintaining a balanced diet to support her diabetes management goals. We also reviewed the options for her toenail infection treatment, weighing the pros and cons of topical versus systemic therapy. Patient was advised on consistent supplementation for macular health and was reminded of regular detasseling crew supervisor evaluations. We reviewed the need for weight management for overall health benefit and to potentially reduce symptoms of fatigue. - Continue taking current prescribed medications as directed - Schedule and attend a formal sleep study as discussed - Maintain dietary improvements and monitor blood sugar levels closely - Monitor symptoms of heartburn and modify diet accordingly - Follow up with a dentist for comprehensive dental care and abscess evaluation - Continue use of eye health supplements and follow up with detasseling crew supervisor for macular degeneration - Use topical treatment consistently for toenail fungus and consider systemic options as discussed - Monitor any edema or unusual symptoms and report them during the next visit Orders: Orders RT PSG in-lab sleep study Today G47.10 - Hypersomnia, unspecified Referrals Nutrition/Dietitian Referral E11.65 - Type 2 diabetes mellitus with hyperglycemia
== END 2024-10-11 14:06 | disposition home or self-care (01) ==
PROVIDERS: PCP Internal Medicine; Visit Provider Internal Medicine
DX: Z00.00 Encounter for general adult medical examination without abnormal findings (principal); E11.65 Type 2 diabetes mellitus with hyperglycemia; I48.91 Unspecified atrial fibrillation; E66.9 Obesity, unspecified; Z68.34 Body mass index [BMI] 34.0-34.9, adult; I10 Essential (primary) hypertension; E78.00 Pure hypercholesterolemia, unspecified; M85.89 Other specified disorders of bone density and structure, multiple sites; G47.10 Hypersomnia, unspecified

== ENCOUNTER → 2024-10-11 13:17 | Outpatient (BNVA) | payer MEDICARE, SELFPAY | PROVIDERS: PCP Internal Medicine; Visit Provider Internal Medicine | DX: Z00.00 Encounter for general adult medical examination without abnormal findings (principal); E11.65 Type 2 diabetes mellitus with hyperglycemia; E66.9 Obesity, unspecified; E78.00 Pure hypercholesterolemia, unspecified; I10 Essential (primary) hypertension; M85.89 Other specified disorders of bone density and structure, multiple sites; I48.91 Unspecified atrial fibrillation; G47.10 Hypersomnia, unspecified | CPT/HCPCS: 96127; 99397 ==

== ENCOUNTER 2024-10-16 14:31 | Outpatient (AMB) | payer MEDICARE, SELFPAY ==
--- NOTE | 2024-10-16 14:31 | A.OFFPC_ITS ---
Intake Visit Reasons: Knee pain 4 month F/U Allergies levofloxacin [Levaquin] Allergy (Unknown, Verified 10/16/24 14:32) Rash Clindamycin HCl Allergy (Unknown, Uncoded 10/16/24 14:32) Rash shrimps Allergy (Unknown, Uncoded 10/16/24 14:32) Rash Tobacco use date assessed: 10/11/24 Fall risk assessment: No Falls in past year Last assessed Fall Risk: 10/16/24 Dental Screening Dental Screen Date: 10/11/24 HPI Knee pain 4 month F/U HPI Details The patient is a 74-year-old female presenting with concerns related to test results and hair loss. She reports that she was here for an annual visit approximately four days ago, and at that time, comprehensive blood tests were ordered, including a thyroid panel due to concerns about hair loss. The issue of hair loss reportedly began after starting warfarin, but subsequent transition to Eliquis did not resolve the condition. The suspicion of drug-related alopecia is low. The patient has been experiencing significant hair loss, estimating a loss of about 50% of her original hair volume. She has been taking an over-the- counter supplement called hair growth by [employer], which contains biotin and an advanced hair complex. No bone density test has been done recently, although paperwork is available. There is mention of potential hereditary or hormonal factors contributing to her alopecia. The patient awaits a dermatological consult for further evaluation of hair loss. Test results that have returned include a normal complete blood count, normal white blood cell count, and normal platelet count. A urinalysis to assess the creatinine ratio was also normal, and vitamin B12 levels are normal. Cholesterol levels and thyroid test results are still pending. The patient has expressed concern regarding these pending results, particularly the thyroid, as it could relate to her hair loss. She has not yet undergone further interventions while awaiting these results. [facility] Medical History (Updated 10/16/24 @ 17:12 by Cain Lyman MD) Atrial fibrillation Cataract Cataract Vitreous detachment Wandering atrial pacemaker Type 2 diabetes mellitus with hyperglycemia Vitamin D deficiency Obesity (BMI 30-39.9) Asthma Hypertension Peripheral vascular disease Osteopenia Hypercholesterolemia Surgical History History of tonsillectomy Family History Mother Ovarian cancer Father No problems noted. Son No problems noted. Daughter Polymyositis Social History Housing: House Alcohol intake: never Patient Tobacco Use Status: Never used Tobacco Tobacco use type: Cigarette e-Cigarette/Vaping Use: Never Used Second Hand Smoke Exposure: Yes service: No Current occupational status: retired Cognitive needs: No Hearing needs: No Vision needs: Yes (reading glasses ) Questionnaire PHQ-9 Over the last 2 weeks, how often have you been bothered by any of the following problems? 1. Little interest or pleasure in doing things: not at all 2. Feeling down, depressed, or hopeless: not at all 3. Trouble falling or staying asleep, or sleeping too much: nearly every day 4. Feeling tired or having little energy: nearly every day 5. Poor appetite or overeating: nearly every day 6. Feeling bad about yourself - or that you are a failure or have let yourself or your family down: not at all 7. Trouble concentrating on things, such as reading the newspaper or watching television: not at all 8. Moving or speaking so slowly that other people could have noticed. Or the opposite - being so fidgety or restless that you have been moving around a lot more than usual: not at all 9. Thoughts that you would be better off or of hurting yourself in some way: not at all Total score: 9 Source: Developed by Drs. Quique Benjamin, Ralf Curry and colleagues, with an educational olivier from [employer]. Thrive Questionnaire Date Thrive assessed: 10/11/24 LINDA-7 AMB Questionnaire LINDA-7 Date LINDA - 7 assessed: 10/11/24 Source: Developed by Drs. Quique Benjamin, Ralf Curry and colleagues, with an educational olivier from [employer]. Physical exam (Primary Care) Tobacco/Smoking Status: Tobacco use Status Tobacco use date assessed 10/11/24 10/16/24 14:32 Patient Tobacco Use Status Never used Tobacco 10/16/24 14:32 Tobacco use type Cigarette 10/16/24 14:32 e-Cigarette/Vaping Use Never Used 10/16/24 14:32 PHQ-9: PHQ-9 Score PHQ-9: Total score 9 10/16/24 17:04 Thrive Assessment: Date of Thrive Assessment Date Thrive assessed 10/11/24 10/16/24 14:32 Telehealth Telehealth Location of provider rendering services: practice address Location of patient: address on file Patient Identification confirmed using: Name, : Yes Telehealth method: voice only Patient verbally consented to treatment: Yes Patient verbally consented to billing insurance company: Yes Patient informed of any privacy concerns related to visit: Yes Minutes spent on Phone/Video with Pt.: 15 Coding Level of Care Code Tele Est Pt Level 3 (62719) Diagnoses Hair loss L65.9 Atrial fibrillation I48.91 Assessment & Plan Assessment & Plan (1) Hair loss: Code(s): L65.9 - Nonscarring hair loss, unspecified Category: Medical Plan: awaiting lbood work And will call lab (2) Atrial fibrillation: Comment: diagnosed 03/[address] Yuan cardiology Code(s): I48.91 - Unspecified atrial fibrillation Category: Medical Plan: continue with anticoagulation Plan - Await and review pending laboratory results, including thyroid function tests and cholesterol levels. - Continue current anticoagulation therapy with Eliquis and monitor for side effects. - Reassure the patient that Eliquis is not typically associated with alopecia. - Encourage continued use of biotin supplement for hair health as it does not indicate harm. - Follow up after dermatological consultation for alopecia to assess for potential hormonal or hereditary causes. - Consider scheduling a bone density test as previously discussed for osteoporosis screening.
== END 2024-10-16 18:02 | disposition home or self-care (01) ==
LOC: HO.HMCH 14:31
PROVIDERS: PCP Internal Medicine; Visit Provider Internal Medicine
DX: I48.91 Unspecified atrial fibrillation (principal); L65.9 Nonscarring hair loss, unspecified

== ENCOUNTER 2025-01-04 14:21 | Outpatient (AMB) | payer MEDICARE, SELFPAY ==
--- NOTE | 2025-01-04 14:21 | MHC.PC.OV ---
Intake Visit Reasons: MAY, a fib Clothing Man Required: No Mattress Weaver: Not Required per policy Accompanied by: Self / Same As Patient Allergies levofloxacin [Levaquin] Allergy (Unknown, Verified 01/04/25 14:22) Rash Clindamycin HCl Allergy (Unknown, Uncoded 01/04/25 14:22) Rash shrimps Allergy (Unknown, Uncoded 01/04/25 14:22) Rash Tobacco use date assessed: 01/04/25 Fall risk assessment: No Falls in past year Last assessed Fall Risk: 01/04/25 Dental Screening Dental Screen Date: 01/04/25 Did you have a dental visit in the last 12 months?: Yes Did you have a dental problem in the last 6 months where you did not have access to dental care?: No Was dental information given to patient?: Patient has dentist HPI DM, a fib HPI Details mother ovarian cancer, daughter has BRCA- patient will see a mobile marketing manager and will be seen 02/05/2025. PAtient wants to see Dr. Head. [facility] Medical History (Updated 10/16/24 @ 17:12 by Cain Lyman MD) Atrial fibrillation Cataract Cataract Vitreous detachment Wandering atrial pacemaker Type 2 diabetes mellitus with hyperglycemia Vitamin D deficiency Obesity (BMI 30-39.9) Asthma Hypertension Peripheral vascular disease Osteopenia Hypercholesterolemia Surgical History History of tonsillectomy Family History Mother Ovarian cancer Father No problems noted. Son No problems noted. Daughter Polymyositis Social History Housing: House Alcohol intake: never Patient Tobacco Use Status: Never used Tobacco Tobacco use type: Cigarette e-Cigarette/Vaping Use: Never Used Second Hand Smoke Exposure: Yes service: No Current occupational status: retired Cognitive needs: No Hearing needs: No Vision needs: Yes (reading glasses ) Questionnaire PHQ-9 Over the last 2 weeks, how often have you been bothered by any of the following problems? 1. Little interest or pleasure in doing things: not at all 2. Feeling down, depressed, or hopeless: not at all 3. Trouble falling or staying asleep, or sleeping too much: not at all 4. Feeling tired or having little energy: not at all 5. Poor appetite or overeating: not at all 6. Feeling bad about yourself - or that you are a failure or have let yourself or your family down: not at all 7. Trouble concentrating on things, such as reading the newspaper or watching television: not at all 8. Moving or speaking so slowly that other people could have noticed. Or the opposite - being so fidgety or restless that you have been moving around a lot more than usual: not at all 9. Thoughts that you would be better off or of hurting yourself in some way: not at all Total score: 0 Depression Screening Interpretation: Negative Depression Screening Done: Yes Source: Developed by Drs. Quique Benjamin, Karishma Bangura, Ralf Mares and colleagues, with an educational olivier from [employer]. Thrive Questionnaire Date Thrive assessed: 01/04/25 I am a: Patient What is your living situation today?: I have a steady place to live Within the past 12 months, did the food you bought not last and you didn't have the money to get more?: Never true Within the past 12 months, did you worry whether your food would run out before you got money to buy more?: Never true Do you have trouble paying for medicines?: No Do you have trouble getting transportation to medical appointments?: No Do you have trouble paying your heating and electricity bill?: No Do you have trouble taking care of your child, family member or friend?: No Do you have trouble with day-to-day activities such as bathing, preparing meals, shopping, managing finances, etc.?: No Are you currently unemployed and looking for a job?: No Are you interested in more education?: No Please select the resources that you would like help with: None Currently or been in a relationship where the following occur: No concerns reported THRIVE Score: 0 AUDIT C Alcohol Use Questionnaire (AUDIT-C) 1. How often do you have a drink containing alcohol?: Never Total Score: 0 LINDA-7 AMB Questionnaire LINDA-7 Date LINDA - 7 assessed: 01/04/25 Feeling nervous, anxious, or on edge: 0 = Not at all Not being able to stop or control worryin = Not at all Worrying too much about different things: 0 = Not at all Trouble relaxin = Not at all Being so restless that it is hard to sit still: 0 = Not at all Becoming easily annoyed or irritable: 0 = Not at all Feeling afraid as if something awful might happen: 0 = Not at all Total LINDA-7 score (0-4 normal; 5-9 mild; 10-14 moderate; 15-21 severe): 0 Source: Developed by Drs. Quique Benjamin, Karishma Bangura, Ralf Mares and colleagues, with an educational olivier from [employer]. Physical exam (Primary Care) Tobacco/Smoking Status: Tobacco use Status Tobacco use date assessed 01/04/25 01/04/25 14:24 Patient Tobacco Use Status Never used Tobacco 01/04/25 14:24 Tobacco use type Cigarette 01/04/25 14:24 e-Cigarette/Vaping Use Never Used 01/04/25 14:24 PHQ-9: PHQ-9 Score PHQ-9: Total score 0 01/04/25 14:24 Depression Screening Interpretation: Negative Thrive Assessment: Date of Thrive Assessment Date Thrive assessed 01/04/25 01/04/25 14:24 Currently or been in a relationship where the following occur: No concerns reported Telehealth Telehealth Telehealth Platform: Telephone Location of provider rendering services: practice address Location of patient: address on file Patient Identification confirmed using: Name, : Yes Telehealth method: voice only Patient verbally consented to treatment: Yes Patient verbally consented to billing insurance company: Yes Patient informed of any privacy concerns related to visit: Yes Minutes spent on Phone/Video with Pt.: 25 Coding Level of Care Code Tele Est Pt Level 4 (86157) Diagnoses Type 2 diabetes mellitus with hyperglycemia, without long-term current use of insulin E11.65 Diabetes mellitus half-way insulin use: without half-way use Obesity (BMI 30-39.9) E66.9 Essential hypertension I10 Hypertension type: essential hypertension Hypercholesterolemia E78.00 Atrial fibrillation I48.91 Mild intermittent asthma without complication J45.20 Asthma severity: mild Asthma persistence: intermittent Asthma complication type: uncomplicated Numbness of right hand R20.0 Assessment & Plan Assessment & Plan (1) Type 2 diabetes mellitus with hyperglycemia: Comment: Dr. Cai(retired), Dr. Clark, dr. Davies Code(s): E11.65 - Type 2 diabetes mellitus with hyperglycemia Category: Medical Qualifiers: Diabetes mellitus superintendent marine oil terminal insulin use: without half-way use Qualified Code(s): E11.65 - Type 2 diabetes mellitus with hyperglycemia Plan: Decrease the amount of carbohydrate intake, pasta, bread, rice and potatoes are all sugar and that is aside from all the sweet stuff, remember that fruits are good but they are Sweet also. Hemoglobin A1c goal of less than 7.0. Patient's last blood work in September was 6.8. Patient is on diet control (2) Obesity (BMI 30-39.9): Code(s): E66.9 - Obesity, unspecified Category: Medical Plan: Diet and exercise (3) Hypertension: Code(s): I10 - Essential (primary) hypertension Category: Medical Qualifiers: Hypertension type: essential hypertension Qualified Code(s): I10 - Essential (primary) hypertension Plan: Continue with blood pressure medication. Decrease salt intake and exercise patient takes lisinopril 2.5 mg once a day and amlodipine 5 mg once a day (4) Hypercholesterolemia: Code(s): E78.00 - Pure hypercholesterolemia, unspecified Category: Medical Plan: Avoid fried foods, chicken skin, eggs, butter margarine, pastries and meat. Be it pork or beef they have a lot of cholesterol LDL goal of less than 100 and triglyceride of less than 150 but the patient declined statins. LDL test in September was 140 (5) Atrial fibrillation: Comment: diagnosed 03/[address] Yuan cardiology Code(s): I48.91 - Unspecified atrial fibrillation Category: Medical Plan: Continue with anticoagulation. (6) Asthma: Comment: PFT normal January 2019 Dr. Gilbert Code(s): J45.909 - Unspecified asthma, uncomplicated Category: Medical Qualifiers: Asthma severity: mild Asthma persistence: intermittent Asthma complication type: uncomplicated Qualified Code(s): J45.20 - Mild intermittent asthma, uncomplicated (7) Numbness of right hand: Code(s): R20.0 - Anesthesia of skin Category: Medical Plan History of Present Illness The patient is a 74-year-old female presenting with concerns related to multiple chronic conditions and symptoms, including essential hypertension, diabetes mellitus type 2, hypercholesterolemia, asthma, fibromyalgia, and hand numbness suggestive of carpal tunnel syndrome. She is managing multiple medications for her conditions, including lisinopril and amlodipine for blood pressure, but reports challenges with medication tolerability, notably an intolerance to statins for cholesterol management. Her diabetes is under control with a recent A1c of 6.88%, though lifestyle adjustments remain crucial. Hypercholesterolemia remains a concern due to elevated LDL levels, impacting her overall cardiovascular risk profile. Asthma management includes steroid inhalers, although concerns about adverse effects like oral thrush were noted. The patient has familial cancer concerns, specifically related to BRCA1 given her mother?s history of ovarian cancer and her daughter?s genetic status. She plans further evaluation with a mobile marketing manager and has an appointment scheduled. The hand numbness suggests carpal tunnel syndrome, exacerbated or initiated by a past fall, impacting daily activities. She seeks evaluation, potentially involving further diagnostic work-up. Review of Systems - Neurologic: Reports numbness in the right hand and fingers. Denies bilateral symptoms. - Respiratory: Reports a history of asthma. - Musculoskeletal: Reports chronic pain consistent with fibromyalgia. - Endocrine: Reports a history of diabetes mellitus type 2, previously noted hemoglobin A1c of 6.88%. - Cardiovascular: Reports essential hypertension. - Genetic: Engaging in genetic services due to a family history of ovarian cancer. Plan The patient will continue current hypertension therapy with lisinopril and amlodipine, with an emphasis on regular blood pressure monitoring. Diabetes management focuses on dietary interventions to achieve A1c targets below 7%. For hypercholesterolemia, the alternative medication ezetimibe is considered given statin intolerance. Continuous monitoring of liver function is necessary to assess treatment tolerability. Asthma management will proceed with inhaled steroids, focusing on minimizing adverse effects. Genetic counseling is ongoing due to the BRCA1 familial risk, with a pending appointment for further evaluation. The right hand numbness consistent with potential carpal tunnel syndrome requires further investigation, with specialist referral considered if needed. Patient was informed and verbally consented to the use of an ambient scribe for clinic note documentation during this visit. Discussion Notes During the visit, we discussed the management and treatment options available for the patient's numerous chronic conditions. The potential use of ezetimibe for cholesterol management was explored as an alternative to statins. The patient expressed concerns about potential side effects of medications, particularly regarding long-term use of inhaled steroids for asthma. We reviewed the implications of BRCA1 genetic counseling, given her family history, stressing the importance of mobile marketing manager consultation to assess her cancer risk profile accurately. The patient reported numbness in her right hand, which may necessitate further evaluation for carpal tunnel syndrome if symptoms persist. We discussed regular follow-up visits, including the importance of monitoring cardiovascular and diabetes status, as well as appropriate management of her familial cancer risk through genetic services. Patient Instructions - Continue taking lisinopril and amlodipine as prescribed. - Maintain dietary modifications to help control blood sugar and cholesterol levels. - Consider trying ezetimibe for cholesterol management. Monitor for any side effects. - Use inhalers as directed and monitor for oral thrush. - Attend the scheduled appointment with the mobile marketing manager for BRCA1 evaluation. - Report any worsening numbness or hand symptoms to consider further evaluation for carpal tunnel syndrome. - Schedule regular follow-up appointments for chronic condition management. Orders: Orders NE nerve conduction velocity Today R20.0 - Anesthesia of skin NE electromyogram (EMG) Today R20.0 - Anesthesia of skin Referrals Pulmonology Referral J45.20 - Mild intermittent asthma, uncomplicated Medications: New ezetimibe (Zetia) 10 mg PO DAILY 90 tabs 1RF E78.00 - Pure hypercholesterolemia, unspecified
--- OUTSIDE RECORDS SUMMARY | 2025-01-04 18:11 | XMS_ITS | Continuity of Care Document ---
Author Organization [facility] Address [address] [facility] [address] [place] [address]- Care Team Providers Care Zinc Chloride Operator Name Role Phone Po Cain SHEPARD Primary Care Physician Encounter 03/03/24 - 01/03/25 [facility] [address], [facility] [address] [place] [address]- Attending Physician: Maye Marin NP Admitting Physician: Maye Marin NP Referring Physician: Maye Marin NP Encounter Type: Pre-Outpt Allergies, Adverse Reactions, Alerts Substance Criticality Severity [...] Date: 06/30/22 Status: Ordered Repeat number: 1 Eliquis 5 mg oral tablet 0 Refills, Maintenance, 10/17/24 2:31:00 PM EST, Partial fill upon patient request if the prescription is for a schedule II opioid drug. Start Date: 10/17/24 Status: Ordered Repeat number: 1 Ferrous Sulfate [...] Date: 06/11/20 Status: Ordered Repeat number: 1 Glucosamine = [...] team information Care Team Personnel Name: Cain Lyman MD Position: Reference Physician Member Role: PCP Address: [address] [place] [address] Telecom: Care Team Related Persons Name: JULIAN DYSON Name: CATARINO DYSON Insurance Providers Guarantor name: CHASE DYSON Health Plan Information #: 1 Payer: [facility] MED[employer] ADV HMO Member Number: [id number] Policy Number: NA Group Number: [id number] Health Plan Information #: 2 Payer: [facility] MEDICARE ADV HMO Member Number: [id number] Policy Number: NA Group Number: [id number]
--- OUTSIDE RECORDS SUMMARY | 2025-01-04 18:11 | XMS_ITS | Continuity of Care Document ---
Author Organization [facility] [place] [place] Address [address] [facility] [address] [place] [address]- Care Team Providers Care Wind Turbine Electrical Engineer Name Role Phone Po Cain SHEPARD Primary Care Physician Encounter 12/13/24 - 12/20/24 [facility] [address], [facility] [address] [place], [place] [address] Attending Physician: Maye Marin NP Admitting Physician: Maye Marin NP Referring Physician: Maye Marin NP Encounter Type: OutPatient One Time Allergies, Adverse Reactions, Alerts Substance Criticality Severity Reaction Reaction Severity Status clindamycin RASH Active Shrimp Active Levaquin Active Medications Amlodipine 5 mg, By Mouth, [...] class I Confirmed Active Prediabetes Confirmed Active Results Radiology Reports * Exam Date Time Procedure Performing Provider Status 12/13/24 4:06 PM MM Digital Mammo Screening Helen Kurtz (Verified) Notes: (MM Digital Mammo Screening) Reason For Exam: Screening RESULT: MM Digital Mammo Screening PROCEDURE: MM Digital Mammo Screening INDICATION: Screening for breast cancer. No known palpable abnormalities. COMPARISON: Priors dating back to 10/04/2021 TECHNIQUE: Full-field digital CC and MLO 3D tomosynthesis images of both breasts were acquired. Computer-aided detection (CAD) was utilized in the interpretation of this study. DENSITY: There are scattered areas of fibroglandular density. FINDINGS: No suspicious masses, suspicious microcalcifications, or areas of architectural distortion are seen in either breast to suggest malignancy. IMPRESSION: No mammographic evidence of malignancy. RECOMMENDATION: Annual mammographic screening BI-RADS: 1 (Negative) Lay letter mailed to patient WSN: [id number] Ordering Physician: Maye Marin Dictated By: Fifi Dacosta MD Dictated Date/Time: 12/14/24 1:54 pm Reviewed By: Fifi Dacosta MD Signed By: Fifi Dacosta MD Signed Date/Time: 12/14/24 1:54 pm Transcribed By: BESSY Paper Sorter Date/Time: 12/14/24 1:50 pm Birads: Social History Social History Type Response Smoking Status Never smoker; Tobacc o user in household: No entered on: 03/15/18 Sex Sex Representation Female (finding) Patient Care team information Care Team Personnel Name: Cain Lyman MD Position: Reference Physician Member Role: PCP Address: [address] [place] [address] Telecom: Care Team Related Persons Name: JULIAN DYSON Name: CATARINO DYSON Insurance Providers Guarantor name: CHASE DYSON Health Plan Information #: 1 Payer: [employer] Member Number: [id number] Policy Number: NA Group Number: [id number] Health Plan Information #: 2 Payer: [employer] Member Number: [id number] Policy Number: NA Group Number: [id number]
--- OUTSIDE RECORDS SUMMARY | 2025-01-04 18:11 | XMS_ITS | Clinical Summary ---
Author Organization [facility] [employer] [facility] Address [address] [facility] [place] [address] Phone Care Team Providers Care Production Wood Craftsman Name Role Phone Cain Lyman MD Primary Care Provider [phone] Allergies Active Allergy Reactions Criticality Noted Date Comments Clindamycin 12/21/2016 Levofloxacin Dizziness 12/21/2016 Levaquin Leva-vikki Shrimp 04/22/2022 Other Reaction(s): Hives/Urticaria Medications apixaban (Eliquis) 5 mg tablet Take 5 mg by mouth 2 times daily. 04/26/20 24 Active ascorbic acid, vitamin C, 100 mg tablet,chewable 1 tablet 1 (one) time each day. Active BORON ORAL Take by mouth daily. Active calcium carbonate (CALCIUM ORAL) Calcium 250 MG Cap Take 2 Tablets by mouth daily Active cholecalciferol (VITAMIN D-3) 25 mcg (1,000 unit) capsule Take by mouth daily. Active coenzyme Q-10 10 mg capsule Take 1 capsule (10 mg total) by mouth 2 (two) times a day. 01/21/20 20 Active cranberry fruit 400 mg tablet Take by mouth daily. Active GARLIC ORAL 1 tablet 3 (three) times a day. Garlic 10 MG Cap daily. Active glucos sul 2KCl/msm/chond/ C/Mn (GLUCOSAMINE CHONDROITIN ORAL) 1 tablet 2 (two) times a day. Active GRAPE SEED OIL, BULK, MISC 2 capsules 2 (two) times a day. Active magnesium oxide (MAG-OX) 400 mg magnesium tablet daily. 01/21/20 20 Active docosahexaenoic acid/vit C/lut (EYE HEALTH ORAL) Multiple Vitamins-Min erals (EYE VITAMINS OR) Take by mouth daily. Active omega-3 acid ethyl esters (LOVAZA) 1 gram capsule 1 capsule (1 g total) 3 (three) times a day. 07/06/20 13 Active turmeric root extract 500 mg capsule 2 capsules 1 (one) time each day. Active vitamin E, dl, acetate, 90 mg (200 unit) capsule Take 1 Capsule by mouth daily. Active zinc sulfate (ZINC-15 ORAL) Take by mouth daily. Active Pulmicort Flexhaler 90 mcg/actuation inhaler Inhale 1 puff by mouth 2 (two) times a day. 06/15/20 24 Active multivitamin with minerals tablet Take 1 tablet by mouth 1 (one) time each day. Active amLODIPine (NORVASC) 5 mg tablet Take 1 tablet (5 mg total) by mouth 1 (one) time each day. 90 tablet 1 11/22/19 25 Active lisinopriL (PRINIVIL,ZESTR IL) 2.5 mg tablet TAKE 1 TABLET BY MOUTH DAILY 90 tablet 3 12/26/19 25 Active lisinopriL (PRINIVIL,ZESTR IL) 2.5 mg tablet TAKE 1 TABLET BY MOUTH DAILY 03/30/20 24 025 Discontinued Active Problems Problem Noted Date Diagnosed Date Chest pressure 11/19/2023 Overview (10/24/2024): Last Assessment & Plan: Patient has had a recent echocardiogram as well as a nuclear stress test which was negative for ischemia. Ever, she was instructed to call 911 and go to the emergency room should she begin to experience chest pain or pressure lasting greater than 10 minutes that is not resolved rest. Assessment & Plan (11/06/2024 4:51 PM EST): Patient's had chronic complaints of chest discomfort never shown any signs of ischemia on noninvasive testing. If told her feel quite comfortable that the discomfort that she is describing is not ischemic. Will continue with present medical therapy and continue to follow but at this point I see no need for any further testing other than continuation of medical management CARRANZA (dyspnea on exertion) 11/19/2023 Overview (10/24/2024): Last Assessment & Plan: This has been ongoing and has worsened since her last office visit. I will update echocardiogram to further evaluate LV function as well and valvular abnormalities.Heart rate is 103 bpm at rest today. Should her LV function be reduced we could consider updating a Holter monitor to further evaluate overall ventricular rate response in the setting of chronic atrial fibrillation. She is not on any AV charlie blocking agents or medications for rhythm control. Atrial fibrillation 04/22/2022 Overview (10/24/2024): Last Assessment & Plan: Continues to be anticoagulated on warfarin. Her [id number] score is 4 for hypertension, diabetes, age and gender modifier. She has had no complications of bleeding however she does endorse significant hair loss and dermatologic changes which she contributes to Coumadin therapy. We discussed other etiologies of these changes such as her thyroid. We also discussed the unlikelihood that she would be a candidate for watchman as she has not had any adverse reactions to Coumadin. We also discussed the fact that she has Eliquis listed as an allergy and the necessity to be on Eliquis pre and post Watchman procedure. At this time the patient would like to retrial Eliquis as she does mention she only took 1 pill and may have been hypervigilant about the pinprick sensation she was feeling. She does acknowledge that there are many other things that could have caused this and that her angst may have contributed to her heightened awareness of what she was feeling. She denies any respiratory complaints, hives or tongue swelling. At this time via shared decision making, we have decided to retrial her on Eliquis 5 mg twice daily as her weight is greater than 60 kg and her age is less than 80. I have asked that she hold her Coumadin tonight, increase her green leafy consumption and have her INR drawn tomorrow as Eliquis will not be started until her INR is less than 2. I have also given her a lab slip to have a thyroid panel drawn to evaluate if this could be the etiology of her symptoms outlined above. Patient also continues to complain of increased fatigue and is curious whether or not this is attributed to her chronic atrial fibrillation. We discussed the potential of updating a 24-hour Holter monitor to evaluate her A-fib burden as well as her overall ventricular rates. This is being placed after our visit today. Palpitations 03/28/2021 Overview (10/24/2024): History of Mobitz type II second-degree block Last Assessment & Plan: Holter monitor ordered to further evaluate overall ventricular rates as well as any other arrhythmias that could be contributing to her fatigue and palpitations. Chronic obstructive pulmonary disease 01/21/2017 Allergic rhinitis 12/11/2016 Diabetes mellitus type 2, uncomplicated 12/11/19 17 Hyperlipidemia 12/11/2016 Overview (10/24/2024): Patient does have elevated lipids. We discussed medical management. She does not want to go on statin therapy is quite adamant about that. Last Assessment & Plan: Patient informs me that she does have routine fasting blood work performed most recently by her PCP. I do not have these records available, however, patient has historically had elevated cholesterol levels and she has adamantly refused statin therapy. Encouraged with diet and lifestyle modification such as increased exercise and decrease dietary fat intake to help further lower cholesterol levels. Hypertension 12/11/2016 Overview (10/24/2024): Last Assessment & Plan: Acceptable today during our visit with a reading of 130/70. I have made no changes to her antihypertensive medications.She will continue on her current dose of Norvasc and lisinopril. Educated on the importance of diet lifestyle modification to help further assist with reducing blood pressure. Encouraged to follow low-salt low-fat diet, make purposeful strides towards weight loss, and engage in routine aerobic exercise as tolerated. Encounters Date Type Department Care Team Description 11/06/2024 1:00 PM EST Office Visit [facility] [address] [facility] [address] [place] [address] Charli Yuan MD Chest pressure (Primary Dx) from Last 3 Months Surgical History Surgery Date Site/Laterality Comments OTHER SURGICAL HISTORY PROCEDURE: ---- OTHER ----; COMMENT: rhinoplasty TONSILLECTOMY PROCEDURE: HISTORICAL TONSILLECTOMY Medical History Medical History Date Comments Allergic rhinitis 12/11/2016 DX:Allergic rh initis Cardiac disease 12/11/2016 DX:Cardiac disea se Chronic obstructive pulmonar y disease (CMS/HCC) 01/21/2017 DX:Chronic obstructive pulmo nary disease (HCC) Diabetes mellitus type 2, un complicated (CMS/HCC) 12/11/2016 DX:Diabetes mellitus type 2, uncomplicated (HCC) Hypercholesterolemia 12/11/2016 DX:Hypercho lesterolemia Hypertension 12/11/2016 DX:Hypertension Phlebitis 12/11/2016 DX:Phlebitis Social History Tobacco Use Types Packs/Day Years Used Date Smoking Tobacco: Never Smokeless Tobacco: Never Alcohol Use Standard Drinks/Week Comments No 0 (1 standard drink = 0.6 oz pur e alcohol) Comments Unknown Sex and Gender Information Value Date Recorded Sex Assigned at Not on file Legal Sex Female 12:35 AM EST Gender Identity Not on file Sexual Orientation Not on file Obstetrics History Last Filed Vital Signs Vital Sign Reading Time Taken Comments Blood Pressure 128/70 11/06/2024 1:50 PM EST Pulse 63 11/06/2024 12:56 PM EST Temperature - - Respiratory Rate - - Oxygen Saturation 97% 11/06/2024 12: 56 PM EST Inhaled Oxygen Concentration - - Weight 87.9 kg (193 lb 12.8 oz) 025 12:56 PM EST Height 160 cm (5' 3 ) 11/06/2024 12:56 PM EST Body Mass Index 34.33 11/06/2024 12:56 PM EST Plan of Treatment Upcoming Encounters Date Type Department Care Team (Late st Contact Info) Description 04/24/2025 11:20 AM EDT Office Visit [facility] Cardiology [address] [place] [address] Charli Yuan MD [address] [place] [address] [address] [place] [address] 05/02/2025 3:45 PM EDT Office Visit Pulmonolgy - [place] [address] [facility] [address] [place] [phone] Ed Gilbert MD [address] [facility] [address] [place] [address] Health Maintenance Due Date Last Done Comments Diabetes: Annual GFR (Glomerular Filtration Rate) 1949 Diabetes: Annual Foot Exam 1959 Diabetes: Annual Retina Eye Exam 1959 DTaP,Tdap,and Td Vaccines (1 - Tdap) 1968 Pneumococcal Vaccine: 50+ Years (1 of 2 - PCV) 1968 Zoster Vaccines (1 of 2) 1999 Cholesterol Screening (Lipid Panel) 09/27/2022 Colorectal Cancer Screening: Colonoscopy 09/27/2022 Depression Screening 09/27/2022 Falls Risk Assessment 09/27/2022 Hepatitis C Screening 09/27/2022 Medicare Annual Wellness Visit 09/27/2022 Osteoporosis Screening (Bone Density Screening) 09/27/2022 Social Influencers of Health Screening 09/27/2022 Diabetes: Annual Urine Albumin-Creatinine Ratio (uACR) 10/08/2022 Diabetes: Blood Sugar Contro l Test (HGBA1C) 10/08/2022 Hypertension/CHF/CAD Annual BMP Blood Test 10/08/2022 COVID-19 Vaccine (2 - 2023-2 5 season) 2024 02/24/2021 Influenza Vaccine (#1) 2024 6, 04/08/2015 RSV Immunization Patients 60 + Years Old (1 - 1-dose 75+ series) 2024 HIB Vaccines Aged Out No longer eligi ble based on patient's age to complete this topic HPV Vaccines Aged Out No longer eligi ble based on patient's age to complete this topic Hepatitis A Vaccines Aged Out No long er eligible based on patient's age to complete this topic Hepatitis B Vaccines Aged Out No long er eligible based on patient's age to complete this topic IPV Vaccines Aged Out No longer eligi ble based on patient's age to complete this topic MMR Vaccines Aged Out No longer eligi ble based on patient's age to complete this topic Meningococcal ACWY Vaccine Aged Out N o longer eligible based on patient's age to complete this topic Meningococcal B Vacine Aged Out No lo nger eligible based on patient's age to complete this topic RSV Immunization Patients Under 20 months Aged Out No longer eligible b ased on patient's age to complete this topic Varicella Vaccines Aged Out No longer eligible based on patient's age to complete this topic Insurance [employer] [address] [place] [address] Care Teams Production Wood Craftsman Relationship Specialty Start Date End Date Cain Lyman MD [address] [place] [address] [address] [facility] [place] [address] PCP - General Internal Medicine 07/06/13
== END 2025-01-04 15:54 | disposition home or self-care (01) ==
LOC: HO.HMCH 14:21
PROVIDERS: PCP Internal Medicine; Visit Provider Internal Medicine
DX: E11.65 Type 2 diabetes mellitus with hyperglycemia (principal); I48.91 Unspecified atrial fibrillation; E66.9 Obesity, unspecified; I10 Essential (primary) hypertension; E78.00 Pure hypercholesterolemia, unspecified; J45.20 Mild intermittent asthma, uncomplicated; R20.0 Anesthesia of skin

== ENCOUNTER → 2025-01-04 14:21 | Outpatient (BNVA) | payer MEDICARE, SELFPAY | PROVIDERS: PCP Internal Medicine; Visit Provider Internal Medicine ==

== ENCOUNTER → 2025-01-16 20:30 | Outpatient (REF) | payer MEDICARE, SELFPAY | LOC: HO.SL 20:30 | PROVIDERS: PCP Internal Medicine; Visit Provider Internal Medicine | DX: G47.10 Hypersomnia, unspecified (principal); G47.33 Obstructive sleep apnea (adult) (pediatric) | CPT/HCPCS: 95810 ==

== ENCOUNTER → 2025-01-16 20:30 | Outpatient (BNV) | payer MEDICARE, SELFPAY | PROVIDERS: PCP Internal Medicine; Visit Provider Psychiatry & Neurology Neurology | DX: G47.33 Obstructive sleep apnea (adult) (pediatric) (principal) | CPT/HCPCS: 95810 ==

== ENCOUNTER 2025-01-23 07:58 | Outpatient (REF) | payer MEDICARE, SELFPAY ==
--- NOTE | 2025-01-23 08:01 | EMG_ITS ---
Right median and ulnar motor and sensory studies were performed. Right radial sensory study was performed and needle examination was performed. 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 MD LUIS ANGEL Man/CLAUDIA / [id number]
--- OUTSIDE RECORDS SUMMARY | 2025-01-23 08:04 | XMS_ITS | Continuity of Care Document ---
Author Organization [facility] Address [address] [place] [address] [facility] [phone] Care Team Providers Care Hydraulic Billet Maker Name Role Phone Po Cain SHEPARD Primary Care Physician Encounter [facility] Date(s): 12/19/24 - 01/18/25 [facility] [address] [place] [address] Encounter Type: Triage Allergies, Adverse Reactions, Alerts [...] Position: Reference Physician Member Role: PCP Address: [address] [place] [address]- Telecom: Care Team Related Persons Name: JULIAN DYSON Name: CATARINO DYSON Insurance Providers Guarantor name: CHASE KARIS Health Plan Information #: 1 Payer: [facility] MEDIC[employer] ADV HMO Member Number: NA Policy Number: NA Group Number: [id number]
--- OUTSIDE RECORDS SUMMARY | 2025-01-23 08:04 | XMS_ITS | Clinical Summary ---
Author Organization [facility] Address [address] [facility] [place] [address] Phone Care Team Providers Care Supervisor [address] Name Role Phone Cain Lyman MD Primary Care Provider [phone] Allergies Active Allergy Reactions Criticality Noted Date [...] Continues to be anticoagulated on warfarin. Her [id number] score is 4 for hypertension, diabetes, age [...] Description 11/06/2024 1:00 PM EST Office Visit [facility] [address] [facility] [address] [place] [address] Charli Yuan MD Chest pressure (Primary Dx) [...] nary disease (HCC) Diabetes mellitus type 2, uncomplicated 7 DX:Diabetes mellitus type 2, uncomplicated ([facility]) Hypercholesterolemia 12/11/2016 DX:Hypercho lesterolemia Hypertension 12/11/2016 DX:Hypertension [...] Description 04/24/2025 11:20 AM EDT Office Visit [facility] [address] [place] [address] Charli Yuan MD [address] [place] [address] [address] [place] [address] 05/02/2025 3:45 PM EDT Office Visit Pulmonolgy - [place] [address] [facility] [address] [place] [phone] Ed Gilbert MD [address] [facility] [address] [place] [address] Health Maintenance Due Date Last Done Comments [...] season) 2024 02/24/2021 Influenza Vaccine (#1) 2024 , 04/08/2015 RSV Immunization Patients 60 + Years [...] topic Insurance [employer] Care Teams Supervisor [address] Relationship Specialty Start Date End Date Cain Lyman MD [address] [place] [address] [address] [facility] [place] [address] PCP - General Internal Medicine 07/06/13
--- OUTSIDE RECORDS SUMMARY | 2025-01-23 08:05 | XMS_ITS | Continuity of Care Document ---
Author Organization [facility] Address [address] [place] [address], [address] [place] [address] Care Team Providers Care Design Painter Name Role Phone Po Cain SHEPARD Primary Care Physician [phone] Encounter [facility] Date(s): 12/18/24 - [facility]/17/[facility] [address], [address] [place] [address] Encounter Type: Triage Allergies, Adverse Reactions, Alerts [...] Position: Reference Physician Member Role: PCP Address: [address] [place], [place] [id number] Telecom: Care Team Related Persons Name: JULIAN DYSON Name: CATARINO DYSON Insurance Providers Guarantor name: CHASE DYSON Health Plan Information #: 1 Payer: [employer] MEDIC[employer] ADV HMO Member Number: NA Policy Number: NA Group Number: NA
--- OUTSIDE RECORDS SUMMARY | 2025-01-23 08:05 | XMS_ITS | Continuity of Care Document ---
Author Organization [facility] ter Address [address] [place] [address]- Care Team Providers Care Vice President Of Advertising Name Role Phone Cain Lyman MD Primary Care Physician Encounter [facility] R [id number] Date(s): 11/06/24 - 01/19/[address] [address]- Attending Physician: Eleni Morgan MD Admitting Physician: Eleni Morgan MD Referring Physician: Cain Lyman MD Encounter Type: Pre-Outpt Allergies, Adverse Reactions, Alerts [...] Position: Reference Physician Member Role: PCP Address: [address] [place] [address] Telecom: Care Team Related Persons Name: JULIAN DYSON Name: CATARINO DYSON Insurance Providers Guarantor name: CHASE DYSON Health Plan Information #: 1 Payer: [facility] MEDICARE ADV HMO Member Number: [id number] Policy Number: NA Group Number: [id number] Health Plan Information #: 2 Payer: [facility] MEDICARE ADV HMO Member Number: [id number] Policy Number: NA Group Number: [id number]
== END 2025-01-23 07:59 | disposition home or self-care (01) ==
LOC: HO.NEURO 07:58
PROVIDERS: PCP Internal Medicine; Visit Provider Internal Medicine
DX: R20.0 Anesthesia of skin (principal); G56.11 Other lesions of median nerve, right upper limb
CPT/HCPCS: 95860; 95886; 95909

== ENCOUNTER 2025-04-03 10:33 | Outpatient (AMB) | payer MEDICARE, SELFPAY ==
--- NOTE | 2025-04-03 10:34 | MHC.OFFVIS ---
Vital Signs 04/03/25 10:35 Height 5 ft 3 in Weight 198 lb 6.656 oz BMI 35.1 BP 120/70 Blood Pressure Location Lt brachial Position Sitting Pulse 98 Pulse Source Pulse Oximeter Pulse Oximetry (%) 95 Oxygen Delivery Method Room Air Intake Visit Reasons: asthma Account Receivable Clerk Required: No Accompanied by: Self / Same As Patient Allergies levofloxacin [Levaquin] Allergy (Unknown, Verified 04/03/25 10:37) Rash Clindamycin HCl Allergy (Unknown, Uncoded 01/04/25 14:22) Rash shrimps Allergy (Unknown, Uncoded 01/04/25 14:22) Rash HPI Comments Details: The patient is here for pulmonary evaluation. The patient is a 74 year woman with known history of asthma in addition to obstructive sleep apnea complaining of significant shortness of breath and also fatigue. She also has a cardiac history with atrial fibrillation. Recently she did undergo a sleep study demonstrating moderate degree of sleep apnea. She is about to start CPAP therapy at this time. In the meantime she struggles with her asthma. She does shortness of breath and chest tightness that limit her activity. Moderate severity. The patient did have some inhalers including Pulmicort Flexhaler and also albuterol. She does not like the powder inhalers because it caused thrush. She can not tolerate them. She does have wheezing on exam she does have a history of atrial fibrillation so therefore she needs something gentle. I do believe the Advair HFA will be a very good option for her. Ascending to the pharmacy. The patient should also continue with her allergy therapy. She has significant nasal congestion. Under blood work she does have an elevated eosinophil count suggesting eosinophilic asthma. If she does not respond to inhaler therapy she will be a good candidate for biologic therapy. The patient will undergo pulmonary function studies back in next 2-3 months. In the meantime she is going to start CPAP and she should bring the CPAP with her to be adjusted. She has not issues she can always call for an earlier assessment. [facility] Medical History (Updated 04/03/25 @ 10:49 by Marco Antonio Head MD) Atrial fibrillation Cataract Cataract Vitreous detachment Wandering atrial pacemaker Type 2 diabetes mellitus with hyperglycemia Vitamin D deficiency Obesity (BMI 30-39.9) Asthma Hypertension Peripheral vascular disease Osteopenia Hypercholesterolemia Surgical History History of tonsillectomy Family History Mother Ovarian cancer Father No problems noted. Son No problems noted. Daughter Polymyositis Social History Housing: House Alcohol intake: never Patient Tobacco Use Status: Never used Tobacco Tobacco use type: Cigarette e-Cigarette/Vaping Use: Never Used Second Hand Smoke Exposure: Yes service: No Current occupational status: retired Cognitive needs: No Hearing needs: No Vision needs: Yes (reading glasses ) Review of Systems Const Reports daytime sleepiness, Reports fatigue, Denies poor appetite and Denies weakness Eyes Denies no additional complaints ENT Reports Normal hearing present, Denies dizziness, Denies nasal congestion, Denies tinnitus and Denies sore throat Card Denies chest pain, Denies syncope, Denies rapid heart rate, Denies dyspnea and Reports dyspnea on exertion Resp Reports cough, Denies dyspnea and Reports dyspnea on exertion GI Denies change in stool character, Reports constipation, Denies diarrhea, Denies nausea and Denies vomiting Denies urinary frequency, Denies difficulty voiding and Denies dysuria Neuro Reports Normal hearing present, Denies dizziness, Denies syncope and Denies weakness Endo Reports fatigue Physical Exam Vital Signs: Last Vital Signs Pulse 98 04/03/25 10:35 BP 120/70 04/03/25 10:35 Pulse Ox 95 04/03/25 10:35 Oxygen Delivery Method Room Air 04/03/25 10:35 BMI result Body Mass Index 35.1 Const General: comfortable HEENT Head: Yes normocephalic Neck Neck: Yes supple Chest Chest palpation & inspection: normal inspection of the chest Resp Effort & Inspection: normal respiratory effort Auscultation: wheezes and diminished lung sounds Cardio Heart sounds: S1 normal heart sound present and S2 normal heart sound present GI Palpation (GI): Soft to palpation Skin General skin exam: no rashes or lesions noted Neuro Cranial nerves: Yes Normal hearing present Extrem General: Yes no clubbing, cyanosis or edema Assessment & Plan Assessment & Plan (1) Obstructive sleep apnea: Comment: Sleep study done January 16 2025 moderate degree of sleep apnea with an AHI of 16 with periodic limb movement Code(s): G47.33 - Obstructive sleep apnea (adult) (pediatric) Category: Medical (2) Asthma: Comment: PFT normal January 2019 Dr. Gilbert Code(s): J45.909 - Unspecified asthma, uncomplicated Category: Medical Qualifiers: Asthma complication type: uncomplicated Asthma persistence: intermittent Asthma severity: mild Qualified Code(s): J45.20 - Mild intermittent asthma, uncomplicated Plan start Advair HFA with spacer SANDIE as needed start Singulair Start APAP PFTs F/U 2-3 months Orders: Orders PFT pulmonary function test Today J45.20 - Mild intermittent asthma, uncomplicated Medications: New fluticasone propion-salmeterol 115-21 mcg/actuation (Advair HFA) 2 puffs inhalation Q12H 30 days 12 grams 11RF fluticasone propionate 50 mcg/actuation 2 sprays intranasal DAILY 30 days 15.8 mL 11RF J31.0 - Chronic rhinitis montelukast (Singulair) 10 mg PO BEDTIME 30 days 30 tabs 11RF J45.909 - Unspecified asthma, uncomplicated inhalational spacing device (Aerochamber MV spacer) As directed 1 ea 0RF Coding Level of Care Code New Pt Level 4 (95382) Diagnoses Obstructive sleep apnea G47.33 Mild intermittent asthma without complication J45.20 Asthma complication type: uncomplicated Asthma persistence: intermittent Asthma severity: mild Time Spent (min) 40
[2025-04-03 10:35] VITALS: BP 120/70; PULSE 98; O2SAT 95; BMI 35.1
--- OUTSIDE RECORDS SUMMARY | 2025-04-03 12:21 | XMS_ITS | Clinical Summary ---
Author Organization [facility] Address [address] [facility] [place] [address] Phone Care Team Providers Care Violin Restorer Name Role Phone Cain Lyman MD Primary Care Provider [phone] Allergies Active Allergy Reactions Criticality Noted Date Comments Clindamycin 12/21/2016 Levofloxacin Dizziness 12/21/2016 Levaquin Leva-vikki Shrimp 04/22/2022 Other Reaction(s): Hives/Urticaria Medications ascorbic acid, vitamin C, 100 mg tablet,chewable [...] DAILY 90 tablet 3 12/26/19 25 Active apixaban (Eliquis) 5 mg tablet TAKE 1 TABLET BY MOUTH TWICE DAILY 180 tablet 1 03/20/20 25 Active apixaban (Eliquis) 5 mg tablet Take 5 mg by mouth 2 times daily. 04/26/20 24 025 Discontinued Active Problems Problem Noted [...] or medications for rhythm control. Atrial fibrillation (CMS/HCC V24, CMS/HCC V28) 0 04/22/2022 Overview (10/24/2024): Last Assessment & Plan: Continues to be anticoagulated on warfarin. Her HUS2UW1-YTNa score is 4 for hypertension, diabetes, age [...] to her fatigue and palpitations. Chronic obstructive pulmonar y disease (CMS/HCC V24, CMS/HCC V28) 01/21/2017 Allergic rhinitis 12/11/2016 Diabetes mellitus type 2, un complicated (CMS/HCC V24, CMS/HCC V28) 12/11/2016 Hyperlipidemia 12/11/2016 Overview (10/24/2024): Patient does have [...] engage in routine aerobic exercise as tolerated. Surgical History Surgery Date Site/Laterality Comments OTHER SURGICAL HISTORY PROCEDURE: ---- OTHER ----; COMMENT: rhinoplasty TONSILLECTOMY PROCEDURE: HISTORICAL TONSILLECTOMY Medical History Medical History Date Comments Allergic rhinitis 12/11/2016 DX:Allergic rh initis Cardiac disease 12/11/2016 DX:Cardiac disea se Chronic obstructive pulmonar y disease (CMS/HCC V24, CMS/HCC V28) 01/21/2017 DX:Chronic obstructive pulm onary disease (HCC) Diabetes mellitus type 2, un complicated ([facility]/HCC V24, [facility] V28) 12/11/2016 DX:Diabetes mellitus type 2 , uncomplicated (HCC) Hypercholesterolemia 12/11/2016 DX:Hypercho lesterolemia Hypertension [...] Description 04/24/2025 11:20 AM EDT Office Visit [facility] [address] [place] [address] Charli Yuan MD [address] [place] [address] [address] [place] [address] 05/02/2025 3:45 PM EDT Office Visit Pulmonolgy - [place] [address] [facility] [address] [place] [address] Ed Gilbert MD [address] [facility] [address] [place] [address] Health Maintenance Due Date Last Done Comments [...] (2 - 2023-2 5 season) 2024 02/24/2021 RSV Immunization Adult Patients (1 - 1-dose 75+ series) 2024 Influenza Vaccine (Season Ended) 2025 11/05/2015, 04/08/2015 HIB Vaccines Aged Out No longer eligi [...] age to complete this topic Meningococcal B Vaccine Aged Out No l onger eligible based on patient's age to complete this topic RSV Immunization Patients Under 20 months Aged Out No longer eligible b ased on patient's age to complete this topic Varicella Vaccines Aged Out No longer eligible based on patient's age to complete this topic Procedures Procedure Name Priority Date/Time Associated Diagnosis Comments POLYSOMNOGRAPHY Routine 02/13/2025 3:49 PM EDT from Last 3 Months Results * Polysomnography (02/13/2025 3:49 PM EDT) us Historical Provider [facility] ORDERABLES F inal Result from Last 3 Months Insurance [employer] Care Teams Violin Restorer Relationship Specialty Start Date End Date Cain Lyman MD [address] [place] [address] [address] [facility] [place] [address] PCP - General Internal Medicine 07/06/13
== END 2025-04-03 11:10 | disposition home or self-care (01) ==
LOC: HO.HPS 10:34
PROVIDERS: PCP Internal Medicine; Visit Provider Hospitalist
DX: G47.33 Obstructive sleep apnea (adult) (pediatric) (principal); J45.20 Mild intermittent asthma, uncomplicated
CPT/HCPCS: 99204

== ENCOUNTER → 2025-04-03 10:33 | Outpatient (BNVA) | payer MEDICARE, SELFPAY | PROVIDERS: PCP Internal Medicine; Visit Provider Hospitalist | DX: J45.20 Mild intermittent asthma, uncomplicated (principal); G47.33 Obstructive sleep apnea (adult) (pediatric); R53.83 Other fatigue | CPT/HCPCS: 99202 ==

== ENCOUNTER 2025-04-26 13:01 | Outpatient (AMB) | payer MEDICARE, SELFPAY ==
--- OUTSIDE RECORDS SUMMARY | 2025-04-26 13:04 | XMS_ITS | Patient Health Record ---
Author Organization [facility] Address [address] [place] [address] Care Team Providers Care Mandarin Tutor Name Role Phone Cain Lyman Primary Care Provider Vamsi Jones Unavailable [phone] Allergies Allergen (clinical drug ingredient) Drug/Non Drug Allergy documented on EMR Reaction Allergy Type Onset Date Status clindamycin Clindamycin HCl rash Drug Allergy Active Levaquin dizziness, lethargy Drug Allergy Active latex itchiness Drug Allergy Active Shrimp/Shell Fish hives Drug Allergy Active Reason For Referral No Information Medications Medication SIG (Take, Route, Frequency, Duration) Notes Start Date End Date Status Lisinopril Active zzzExtra Depth Orthopedic Shoes (1 Pair) with Customized Heat Molded Multidensity Innersoles (3 Pair) . . . Dx: NIDDM/Polyneuropathy (E11.42), Hammertoe Foot Deformity (M20.41,M20.42), Preulcerative Skin Lesion(s) (L85.1); Duration: . 11/07/2015 Active Aspirin 81 MG 1 tablet Orally Once a day Active Beta Carotene 30 MG 1 capsule Orally Onc e a day Active Jublia 10 % as directed External ly Daily; Duration: 30 days 03/12/2016 Active Calcium + D 600-200 MG-UNIT 1 tablet with food Orally Once a day Active Co Q 10 10 MG 1 capsule with a charity l Orally Once a day Active Fish Oil 500 MG 1 capsule Orally Twi ce a day Active Ginkgo Biloba 60 MG Orally Active Iron 325 (65 Fe) MG 1 tablet Orally Once a day Active Multivitamins Orally Active Mirena 20 MCG/24HR Intrauterine Active Magnesium 300 MG 1 capsule with a charity l Orally Once a day Active amLODIPine Besylate Active ProAir HFA Active Social History Tobacco Use: Social History Observation Description Date Details (start date - stop date) Never Smoker NA - NA Tobacco Use/Smoking Question Answer Notes Are you a: nonsmoker Alcohol Screen Question Answer Notes Did you have a drink containing alcohol in the p ast year? No Points 0 Interpretation Negative Tobacco use other than smoking: Question Answer Notes Are you an other tobacco user? No Problems Problem Type SNOMED Code ICD Code Onset Dates Problem Status W/U Status Risk Notes Problem Polyneuropathy due to type 2 diabetes mellitus (871161238) Type 2 diabetes mellitus with diabetic polyneuropathy (E11.42) Active confirmed Plan Of Treatment Pending Test Test Name Order Date Hemoglobin A1c 03/04/2015 Hemoglobin A1c 11/07/2015 [id number] NAIL, 6 OR MORE 01/15/2014 [id number] NAIL, 6 OR MORE 03/04/2015 [id number] NAIL, 6 OR MORE 11/07/2015 [id number] NAIL, 6 OR MORE 03/12/2016 [id number] Plate 01/15/2014 [id number] Plate 11/07/2015 [id number] SKIN LESIONS, OVER 4 11/07/19 16 [id number] SKIN LESIONS, OVER 4 03/04/20 15 [id number] SKIN LESIONS, OVER 4 03/12/20 16 [id number] SKIN LESIONS, OVER 4 01/16/20 14 Insurance Providers Payer Name Payer Address Payer Phone Subscriber Number Group Number Insured Name Patient Relationship to Insured Coverage Start Date Coverage End Date [employer] [place] [employer] [address] [place] [address] [id number] Bev Shah Self - patient is the insured Medical (General) History Medical History History ICD Code type II diabetes Hypercholesterolemia Back,Hip,and Knee pain High blood pressure Sciatica Measles Mumps Chicken pox COPD Surgical History Surgery Date(Month/Year) tonsillectomy 1952
--- OUTSIDE RECORDS SUMMARY | 2025-04-26 13:04 | XMS_ITS | Patient Health Record ---
Author Organization [facility] Address [address] [place] [address] Care Team Providers Care Electrical Design Engineer Name Role Phone Cain Lyman MD Primary Care Provider Quique Medina [phone] Allergies Allergen (clinical drug ingredient) Drug/Non Drug Allergy documented on EMR Reaction Allergy Type Onset Date Status Levaquin Unknown Drug Allergy Active clindamycin Clindamycin HCl Unknown Drug Allergy Active Shellfish (FN) shrimp (uncoded) Unknown Allergy Active Reason For Referral No Information Medications Medication SIG (Take, Route, Fr equency, Duration) Notes Start Date End Date Status Multivitamin Active Beta Carotene Active Magnesium Active Mirena Active amLODIPine Besylate Active ProAir HFA Active Lisinopril Active Glucosamine Active Aspirin Active Vitamin C Active Flaxseed Oil Active Calcium Active Fish Oil Active Co Q 10 Active Problems Problem Type SNOMED Code ICD Code Onset Dates Problem Status W/U Status Risk Notes Problem [id number] Encounter for screening for malignant neoplasm of colon (Z12.11) Active confirmed Problem Encounter for screening for malignant neoplasm of rectum (Z12.12) Active confirmed Problem 81939373 Preprocedural examination (Z01.818) Active confirmed Problem 842200836 Long-term use of aspirin therapy (Z79.82) Active confirmed Plan Of Treatment Future Test Test Name Order Date COLONOSCOPY 06/04/2016 Insurance Providers Payer Name Payer Address Payer Phone Subscriber Number Group Number Insured Name Patient Relationship to Insured Coverage Start Date Coverage End Date [facility] [address] [place] [address] [phone] [id number] CHASE DYSON Self - patient is the insured Medical (General) History Medical History History ICD Code Screening colonocopy 03-18-2006---neg. ex cept for internal hemorrhoids Hypertension Mild COPD Hypercholesterolemia Denies NV,DM,CVA,renal disease Seasonal allergies/postnasal drip Surgical History Surgery Date(Month/Year) tonsillectomy
--- OUTSIDE RECORDS SUMMARY | 2025-04-26 13:04 | XMS_ITS | Clinical Summary ---
Author Organization [facility] Address [address] [facility] [place] [address] Phone Care Team Providers Care Nurse Anesthetist Name Role Phone Cain Lyman MD Primary Care Provider [phone] Allergies Active Allergy Reactions Criticality Noted Date Comments Clindamycin 12/21/2016 Levofloxacin Dizziness 12/21/2016 Levaquin Leva-vikki Shrimp 04/22/2022 Other Reaction(s): Hives/Urticaria Medications BORON ORAL Take by mouth daily. Active calcium carbonate (CALCIUM ORAL) Calcium 250 MG Cap Take 2 Tablets by mouth daily Active cholecalciferol (VITAMIN D-3) 25 mcg (1,000 unit) capsule Take by mouth daily. Active coenzyme Q-10 10 mg capsule Take 1 capsule (10 mg total) by mouth 2 (two) times a day. 0 Active cranberry fruit 400 mg tablet Take by mouth daily. Active GARLIC ORAL 1 tablet 1 (one) time each day. Garlic 10 MG Cap daily. Active glucos sul 2KCl/msm/chond/ C/Mn (GLUCOSAMINE CHONDROITIN ORAL) 1 tablet 2 (two) times a day. Active GRAPE SEED OIL, BULK, MISC 2 capsules 1 (one) time each day. Active magnesium oxide (MAG-OX) 400 mg magnesium tablet daily. 0 Active omega-3 acid ethyl esters (LOVAZA) 1 gram capsule 1 capsule (1 g total) 3 (three) times a day. 3 Active turmeric root extract 500 mg capsule 2 capsules 1 (one) time each day. Active zinc sulfate (ZINC-15 ORAL) Take by mouth daily. Active amLODIPine (NORVASC) 5 mg tablet Take 1 tablet (5 mg total) by mouth 1 (one) time each day. 90 tablet 1 5 Active lisinopriL (PRINIVIL,ZESTR IL) 2.5 mg tablet TAKE 1 TABLET BY MOUTH DAILY 90 tablet 3 5 Active apixaban (Eliquis) 5 mg tablet TAKE 1 TABLET BY MOUTH TWICE DAILY 180 tablet 1 5 Active fluticasone propionate (FLONASE) 50 mcg/actuation nasal spray Administer 1 spray into each nostril 1 (one) time each day. Shake gently. Before first use, prime pump. After use, clean tip and replace cap. Active ascorbic acid, vitamin C, 100 mg tablet,chewable 1 tablet 1 (one) time each day. 04/25/20 25 Discontin ued(Thera py completed ) docosahexaenoic acid/vit C/lut (EYE HEALTH ORAL) Multiple Vitamins-Karnes als (EYE VITAMINS OR) Take by mouth daily. 04/25/20 25 Discontin ued(Thera py completed ) vitamin E, dl, acetate, 90 mg (200 unit) capsule Take 1 Capsule by mouth daily. 04/25/20 25 Discontin ued(Thera py completed ) Pulmicort Flexhaler 90 mcg/actuation inhaler Inhale 1 puff by mouth 2 (two) times a day. 4 04/25/20 25 Discontin ued(Thera py completed ) multivitamin with minerals tablet Take 1 tablet by mouth 1 (one) time each day. 04/25/20 25 Discontin ued(Thera py completed ) Active Problems Problem Noted Date Diagnosed Date [...] Continues to be anticoagulated on warfarin. Her LTY4OD4-SAIc score is 4 for hypertension, diabetes, age [...] is being placed after our visit today. Assessment & Plan (04/25/2025 12:05 PM EDT): Patient with rate controlled atrial fibrillation. Chronically anticoagulated with Eliquis due to elevated CHADS2 score. No symptoms of heart failure no bleeding issues no complaints of palpitations. Orders: ECG 12 lead Palpitations 03/28/2021 Overview (10/24/2024): History of Mobitz type II second-degree block Last Assessment & Plan: Holter monitor ordered to further evaluate overall ventricular rates as well as any other arrhythmias that could be contributing to her fatigue and palpitations. Chronic obstructive pulmonar y disease ([facility] V24, [facility] V28) 01/21/2017 Allergic rhinitis 12/11/2016 Diabetes mellitus type 2, un complicated ([facility] V24, [facility] V28) 12/11/2016 Hyperlipidemia 12/11/2016 Overview (10/24/2024): Patient [...] Encounters Date Type Department Care Team Description 04/25/2025 11:20 AM EDT Office Visit [facility] [address] [facility] [address] [place] [address] Leland Yuan MD Atrial fibrillation, unspecified type ([facility] V24, [facility] V28) (Primary Dx) from Last 3 Months Surgical History Surgery Date Site/Laterality Comments OTHER SURGICAL HISTORY PROCEDURE: ---- OTHER ----; COMMENT: rhinoplasty TONSILLECTOMY PROCEDURE: HISTORICAL TONSILLECTOMY Medical History Medical History Date Comments Allergic rhinitis 12/11/2016 DX:Allergic rh initis Cardiac disease 12/11/2016 DX:Cardiac disea se Chronic obstructive pulmonar y disease ([facility] V24, [facility] V28) 01/21/2017 DX:Chronic obstructive pulm onary disease (HCC) Diabetes mellitus type 2, un complicated ([facility] V24, [facility] V28) 12/11/2016 DX:Diabetes mellitus type 2 , [...] Pressure 128/70 11/06/2024 1:50 PM EST Pulse 106 04/25/2025 11:33 AM EDT Temperature - - Respiratory Rate - - Oxygen Saturation 96% 04/25/2025 11:33 AM EDT Inhaled Oxygen Concentration - - Weight 88.9 kg (196 lb) 04/25/2025 11:33 AM EDT Height 157.5 cm (5' 2 ) 04/25/2025 11:33 AM EDT Body Mass Index 35.85 04/25/2025 11:33 AM EDT Plan of Treatment Health Maintenance Due Date Last Done Comments [...] - 1-dose 75+ series) 2024 Influenza Vaccine (#1) 2025 6, 04/08/2015 HIB Vaccines Aged Out No longer [...] Procedure Name Priority Date/Time Associated Diagnosis Comments ECG 12-LEAD Routine 04/25/2025 11:42 AM EDT Atrial fibrillation, unspecified type (CMS/HCC V24, CMS/HCC V28) POLYSOMNOGRAPHY Routine 02/13/2025 3:49 PM EDT from Last 3 Months Results * ECG 12 lead (04/25/2025 11:42 AM EDT) Ventricular Rate ECG 85 BPM GEMUSE Atrial Rate 234 BPM GEMUSE QRS Duration 82 ms GEMUSE Q-T Interval 374 ms GEMUSE QTc 445 ms GEMUSE R Hendley 65 degrees GEMUSE T Hendley -2 degrees GEMUSE ECG Interpretation Atrial fibrillation with premature ventricular or aberrantly conducted complexes Nonspecific T wave abnormality Abnormal ECG No previous ECGs available Confirmed by Lolis YUAN, LELAND ([id number]) on 04/25/2025 12:10:06 PM GEMUSE 04/25/2025 11:4 2 AM EDT 04/25/2025 12:10 PM EDT Leland Yuan MD ECG ORDERABLES Final Result GEMUSE * Polysomnography (02/13/2025 3:49 PM EDT) Historical Provider [facility] ORDERABLES F inal Result from Last 3 Months Insurance [employer] Care Teams Nurse Anesthetist Relationship Specialty Start Date End Date Cain Lyman MD [address] [place] [address] [address] [facility] [place] [address] PCP - General Internal Medicine 07/06/13
[2025-04-26 13:11] VITALS: BMI 35.1
--- NOTE | 2025-04-26 13:11 | A.OFFVIS_ITS ---
Vital Signs 04/26/25 13:11 Height 5 ft 3 in Weight 198 lb BMI 35.1 Intake Visit Reasons: Newprob-Right hand numbness, EMG done Intake Note: Bev is a 74 year old - hand dominant female who presents today with her daughter Lula for a new problem visit for evaluation of right hand numbness. States she has CTS symptoms that have been constant for about 3-4 years. States she stopped using the braces due to braces not helping. She has weakness and is not able topick up small items due to numbness in finger tips. 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 Allergies levofloxacin (Levaquin) Allergy (Unknown, Verified 04/26/25 13:19) Rash Clindamycin HCl Allergy (Unknown, Uncoded 04/26/25 13:19) Rash shrimps Allergy (Unknown, Uncoded 04/26/25 13:19) Rash HPI HPI Newprob-Right hand numbness, EMG done: Details: Bev is a 74 year old - hand dominant female who presents today with her daughter Lula for a new problem visit for evaluation of right hand numbness. States she has CTS symptoms that have been constant for about 3-4 years. States she stopped using the braces due to braces not helping. She has weakness and is not able topick up small items due to numbness in finger tips. 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 [facility] Medical History (Updated 04/03/25 @ 10:49 by Marco Antonio Head MD) Atrial fibrillation Cataract Cataract Vitreous detachment Wandering atrial pacemaker Type 2 diabetes mellitus with hyperglycemia Vitamin D deficiency Obesity (BMI 30-39.9) Asthma Hypertension Peripheral vascular disease Osteopenia Hypercholesterolemia Surgical History History of tonsillectomy Family History Mother Ovarian cancer Father No problems noted. Son No problems noted. Daughter Polymyositis Social History Housing: House Alcohol intake: never Patient Tobacco Use Status: Never used Tobacco Tobacco use type: Cigarette e-Cigarette/Vaping Use: Never Used Second Hand Smoke Exposure: Yes service: No Current occupational status: retired Cognitive needs: No Hearing needs: No Vision needs: Yes (reading glasses ) Review of Systems Const All systems reviewed & are unremarkable except as noted in HPI and below Physical Exam Vital Signs: BMI result Body Mass Index 35.1 Extrem Other: Neuro: Decreased sensation in the median nerve distribution of the right hand. Normal sensation to all other digits in the right hand today. Normal sensation in the tips of all digits of the left hand today. Significant thenar wasting noted on the right Good APB muscle firing and good finger cross. Vascular: Capillary refill brisk. ROM: Patient can make a fist and extend all their digits. Skin: No lacerations or abrasions noted. General: No ecchymosis. No erythema or evidence of infection. []\ Assessment & Plan Assessment & Plan (1) Right carpal tunnel syndrome: Comment: January 2025Moderate to severe right median neuropathy across carpal tunnel. Code(s): G56.01 - Carpal tunnel syndrome, right upper limb Category: Medical Plan 1. Right carpal tunnel syndrome Symptoms constant, daily, worse at night I educated the patient about the condition. I discussed both operative and nonoperative treatment options. The patient would like to proceed with surgery. The risks and benefits of operative treatment were discussed with the patient and the patient wishes to proceed with surgery. These risks include, but are not limited to, risk of damage to blood vessels, nerves, tendons, infection, recurrence, incomplete relief of preoperative symptoms, persistent pain, possible need for further surgery, and the risks associated with regional blocks and/or anesthesia. Plan is to take the patient to the operating room at some point in the next few weeks for the following procedures: 1. Right carpal tunnel release under local All of the preoperative paperwork including the consent was discussed today. All of the patient's questions were answered in the clinic today. The patient understands that they will be in contact with our surgical supply assistant to discuss scheduling their procedure. Patient denies diabetes, blood thinners, asthma, heart issues, lung issues, kidney issues, or current smoking. Coding Level of Care Code New Pt Level 4 (61341) Diagnoses Right carpal tunnel syndrome G56.01
== END 2025-04-26 13:42 | disposition home or self-care (01) ==
LOC: HO.HOS 13:02
PROVIDERS: PCP Internal Medicine
DX: G56.01 Carpal tunnel syndrome, right upper limb (principal)
CPT/HCPCS: 99214

== ENCOUNTER → 2025-04-26 13:01 | Outpatient (BNVA) | payer MEDICARE, SELFPAY | PROVIDERS: PCP Internal Medicine | DX: G56.01 Carpal tunnel syndrome, right upper limb (principal); R20.2 Paresthesia of skin; R53.1 Weakness | CPT/HCPCS: 99212 ==

== ENCOUNTER 2025-05-11 14:44 | Outpatient (AMB) | payer MEDICARE, SELFPAY ==
--- OUTSIDE RECORDS SUMMARY | 2025-05-05 23:59 | XMS_ITS | Continuity of Care Document ---
Author Organization [facility] Address [address] [place] [address]- Care Team Providers Care Transcription Specialist Name Role Phone Po Cain SHEPARD Primary Care Physician [phone] Encounter [facility] ACCT R [id number] Date(s): 12/29/24 - 05/05/25 [facility] [address] [place], [place] [address] Attending Physician: Tiffany Diallo MD Referring Physician: Not on Staff, Referring MD Encounter Type: Pre Office Visit Allergies, Adverse Reactions, Alerts Substance Criticality Severity [...] Date: 11/10/16 Status: Ordered Repeat number: 1 Grape Seed Oil 0 Refills, Maintenance, 04/09/25 3:35:00 PM EDT, Partial fill upon patient request if the prescription is for a schedule II opioid drug. Start Date: 04/09/25 Status: Ordered Repeat number: 1 lisinopril 2.5 [...] Position: Reference Physician Member Role: PCP Address: [address] [place] [address] Telecom: Care Team Related Persons Name: JULIAN DYSON Name: CATARINO DYSON Insurance Providers Guarantor name: CHASE DYSON Health Plan Information #: 1 Payer: [employer] H[employer] Payer Identifier: NA Member Number: [id number] Group Number: [id number] Subscriber Identifier: [id number] Relationship to Subscriber: self Coverage Type: Medicare HMO Coverage Verification Date: NA Telecom: NA Address:
--- OUTSIDE RECORDS SUMMARY | 2025-05-11 14:47 | XMS_ITS | Patient Health Record ---
Author Organization [facility] Address [address] [place] [address] Care Team Providers Care Analyst Programmer Name Role Phone Cain Lyman MD Primary Care Provider Quique Medina [phone] Allergies Allergen (clinical drug ingredient) Drug/Non Drug [...] Problem Status W/U Status Risk Notes Problem 749199269 Encounter for screening for malignant neoplasm of colon (Z12.11) Active confirmed Problem Screening for malignant neoplasm of rectum (189787818) Encounter for screening for malignant neoplasm of rectum (Z12.12) Active confirmed Problem 72534148 Preprocedural examination (Z01.818) Active confirmed Problem 054634237 Long-term use of aspirin therapy (Z79.82) Active confirmed Plan Of Treatment Future Test Test Name Order Date COLONOSCOPY 06/04/2016 Insurance Providers Payer Name Payer Address Payer Phone Subscriber Number Group Number Insured Name Patient Relationship to Insured Coverage Start Date Coverage End Date [facility] [address] [place] [address] [id number] CHASE DYSON Self - patient is the insured Medical (General) History Medical History History ICD Code Screening colonocopy 03-18-2006---neg. ex cept for internal hemorrhoids Hypertension Mild COPD Hypercholesterolemia Denies DC,DM,CVA,renal disease Seasonal allergies/postnasal drip Surgical History Surgery Date(Month/Year) tonsillectomy
--- OUTSIDE RECORDS SUMMARY | 2025-05-11 14:47 | XMS_ITS | Clinical Summary ---
Author Organization [facility] [address] [facility] Address [address] [facility] [place] [address] Phone Care Team Providers Care Alteration Workroom Supervisor Name Role Phone Cain Lyman MD Primary Care Provider [phone] Allergies Active Allergy Reactions Criticality Noted Date [...] docosahexaenoic acid/vit C/lut (EYE HEALTH ORAL) Multiple Vitamins-[place] als (EYE VITAMINS OR) Take by mouth [...] Continues to be anticoagulated on warfarin. Her [id number] score is 4 for hypertension, diabetes, age [...] and palpitations. Chronic obstructive pulmonar y disease ([facility] V24, [facility] V28) 01/21/2017 Allergic rhinitis 12/11/2016 Diabetes mellitus type 2, un complicated ([facility] V24, [facility] V28) 12/11/2016 Hyperlipidemia 12/11/2016 Overview (10/24/2024): Patient [...] Description 04/25/2025 11:20 AM EDT Office Visit [facility] [address] [facility] [address] [place] [address] Leland Yuan MD Atrial fibrillation, unspecified type ([facility] V24, [facility] V28) (Primary Dx) from Last 3 Months Surgical History Surgery Date Site/Laterality Comments OTHER SURGICAL HISTORY PROCEDURE: ---- OTHER ----; COMMENT: rhinoplasty TONSILLECTOMY PROCEDURE: HISTORICAL TONSILLECTOMY Medical History Medical History Date Comments Allergic rhinitis 12/11/2016 DX:Allergic rh initis Cardiac disease 12/11/2016 DX:Cardiac disea se Chronic obstructive pulmonar y disease ([facility] V24, [facility] V28) 01/21/2017 DX:Chronic obstructive pulm onary disease (HCC) Diabetes mellitus type 2, un complicated ([facility] V24, [facility] V28) 12/11/2016 DX:Diabetes mellitus type 2 , [...] Panel) 09/27/2022 Colorectal Cancer Screening: Colonoscopy 09/27/2022 Falls Risk Assessment 09/27/2022 Hepatitis C [...] Patients (1 - 1-dose 75+ series) 2024 Depression Screening 10/25/2024 Influenza Vaccine (#1) 2025 6, 04/08/2015 HIB [...] ms GEMUSE QTc 445 ms GEMUSE R [place] 65 degrees GEMUSE T [place] -2 degrees GEMUSE ECG Interpretation Atrial fibrillation [...] [employer] [place] [employer] Care Teams Alteration Workroom Supervisor Relationship Specialty Start Date End Date Cain Lyman MD [address] [place] [address] [address] [facility] [place] [address] PCP - General Internal Medicine 07/06/13
--- OUTSIDE RECORDS SUMMARY | 2025-05-11 14:47 | XMS_ITS | Patient Health Record ---
Author [facility] Address [address] [place] [address] Care Team Providers Care Straightener Gun Parts Name Role Phone Cain Lyman Primary Care Provider Vamsi Jones Unavailable [phone] Allergies Allergen (clinical drug ingredient) Drug/Non Drug [...] Polyneuropathy due to type 2 diabetes mellitus (947278842) Type 2 diabetes mellitus with diabetic polyneuropathy (E11.42) Active confirmed Plan Of Treatment Pending Test Test Name Order Date Hemoglobin A1c 03/04/2015 Hemoglobin A1c 11/07/2015 [id number] NAIL, 6 OR MORE 01/15/2014 [id number] NAIL, 6 OR MORE 03/04/2015 [id number] NAIL, 6 OR MORE 11/07/2015 [id number] NAIL, 6 OR MORE 03/12/2016 77816-Pxvhowfl Plate 01/15/2014 77440-Bccwhagz Plate 11/07/2015 [id number] SKIN LESIONS, OVER 4 11/07/19 16 53873-TFEZ SKIN LESIONS, OVER 4 03/04/20 15 80749-BESP SKIN LESIONS, OVER 4 03/12/20 16 16670-YIJX SKIN LESIONS, OVER 4 01/16/20 14 Insurance Providers Payer Name Payer Address Payer Phone Subscriber Number Group Number Insured Name Patient Relationship to Insured Coverage Start Date Coverage End Date [employer] [place] [employer]vantage [address] [place] [address] [id number] Bev Shah Self - patient is the insured Medical (General) History Medical History History ICD Code type II diabetes Hypercholesterolemia Back,Hip,and Knee pain High blood pressure Sciatica Measles Mumps Chicken pox COPD Surgical History Surgery Date(Month/Year) tonsillectomy 1952
[2025-05-11 14:49] VITALS: BP 124/84; PULSE 92; TEMP 36.3; O2SAT 96; BMI 34.9
--- NOTE | 2025-05-11 14:49 | A.OFFPC_ITS ---
Vital Signs 05/11/25 14:49 Height 5 ft 3 in Weight 197 lb BMI 34.9 BP 124/84 Blood Pressure Location Lt brachial Position Sitting Pulse 92 Pulse Source Pulse Oximeter Temp 97.3 F Temp Source Temporal Artery Scan Pulse Oximetry (%) 96 Oxygen Delivery Method Room Air Intake Visit Reasons: 4 months follow up Allergies levofloxacin (Levaquin) Allergy (Unknown, Verified 05/11/25 14:53) Rash Clindamycin HCl Allergy (Unknown, Uncoded 05/11/25 14:53) Rash shrimps Allergy (Unknown, Uncoded 05/11/25 14:53) Rash Tobacco use date assessed: 05/11/25 Fall risk assessment: No Falls in past year Last assessed Fall Risk: 05/11/25 Dental Screening Dental Screen Date: 05/11/25 Did you have a dental visit in the last 12 months?: Yes Did you have a dental problem in the last 6 months where you did not have access to dental care?: No Was dental information given to patient?: Patient has dentist [facility] Medical History Atrial fibrillation Cataract Cataract Vitreous detachment Wandering atrial pacemaker Type 2 diabetes mellitus with hyperglycemia Vitamin D deficiency Obesity (BMI 30-39.9) Asthma Hypertension Peripheral vascular disease Osteopenia Hypercholesterolemia Surgical History History of tonsillectomy Family History Mother Ovarian cancer Father No problems noted. Son No problems noted. Daughter Polymyositis Social History Housing: House Alcohol intake: never Patient Tobacco Use Status: Never used Tobacco Tobacco use type: Cigarette e-Cigarette/Vaping Use: Never Used Second Hand Smoke Exposure: Yes service: No Current occupational status: retired Cognitive needs: No Hearing needs: No Vision needs: Yes (reading glasses ) Questionnaire PHQ-9 Over the last 2 weeks, how often have you been bothered by any of the following problems? 1. Little interest or pleasure in doing things: not at all 2. Feeling down, depressed, or hopeless: not at all 3. Trouble falling or staying asleep, or sleeping too much: several days 4. Feeling tired or having little energy: nearly every day 5. Poor appetite or overeating: more than half the days 6. Feeling bad about yourself - or that you are a failure or have let yourself or your family down: not at all 7. Trouble concentrating on things, such as reading the newspaper or watching television: not at all 8. Moving or speaking so slowly that other people could have noticed. Or the opposite - being so fidgety or restless that you have been moving around a lot more than usual: not at all 9. Thoughts that you would be better off or of hurting yourself in some way: not at all Total score: 6 Source: Developed by Drs. Quique Benjamin, Karishma Bangura, Ralf Mares and colleagues, with an educational olivier from [employer]. Thrive Questionnaire Date Thrive assessed: 05/11/25 I am a: Patient What is your living situation today?: I have a steady place to live Within the past 12 months, did the food you bought not last and you didn't have the money to get more?: Never true Within the past 12 months, did you worry whether your food would run out before you got money to buy more?: Never true Do you have trouble paying for medicines?: No Do you have trouble getting transportation to medical appointments?: No Do you have trouble paying your heating and electricity bill?: No Do you have trouble taking care of your child, family member or friend?: No Do you have trouble with day-to-day activities such as bathing, preparing meals, shopping, managing finances, etc.?: No Are you currently unemployed and looking for a job?: No Are you interested in more education?: No Please select the resources that you would like help with: None Currently or been in a relationship where the following occur: No concerns reported THRIVE Score: 0 AUDIT C Alcohol Use Questionnaire (AUDIT-C) 1. How often do you have a drink containing alcohol?: Never 3. How often do you have six or more drinks on one occasion?: Never Total Score: 0 LINDA-7 AMB Questionnaire LINDA-7 Date LINDA - 7 assessed: 01/04/25 Feeling nervous, anxious, or on edge: 0 = Not at all Not being able to stop or control worryin = Not at all Worrying too much about different things: 0 = Not at all Trouble relaxin = Not at all Being so restless that it is hard to sit still: 0 = Not at all Becoming easily annoyed or irritable: 0 = Not at all Feeling afraid as if something awful might happen: 0 = Not at all Total LINDA-7 score (0-4 normal; 5-9 mild; 10-14 moderate; 15-21 severe): 0 Source: Developed by Drs. Quique Benjamin, Karishma Bangura, Ralf Mares and colleagues, with an educational olivier from [employer]. Physical exam (Primary Care) Vital Signs: Last Vital Signs Temp 97.3 F 05/11/25 14:49 Pulse 92 05/11/25 14:49 BP 124/84 05/11/25 14:49 Pulse Ox 96 05/11/25 14:49 Oxygen Delivery Method Room Air 05/11/25 14:49 BMI result Body Mass Index 34.9 Tobacco/Smoking Status: Tobacco use Status Tobacco use date assessed 05/11/25 05/11/25 14:55 Patient Tobacco Use Status Never used Tobacco 05/11/25 14:55 Tobacco use type Cigarette 05/11/25 14:55 e-Cigarette/Vaping Use Never Used 05/11/25 14:55 PHQ-9: PHQ-9 Score PHQ-9: Total score 6 05/11/25 15:18 Thrive Assessment: Date of Thrive Assessment Date Thrive assessed 05/11/25 05/11/25 14:55 Currently or been in a relationship where the following occur: No concerns reported Const General: alert; No acute distress Eyes Conjunctivae: conjunctivae normal Resp Auscultation: clear to auscultation bilaterally Cardio Rate: regular rate Rhythm: regular rhythm GI Inspection: Yes normal to inspection Extrem General: Yes normal to inspection and No edema Results AMB Hemoglobin A1c AMB Hemoglobin A1c 6.9 % Last Edit by Aviva Shah CMA on 05/11/25 14:57 Results Reviewed Results Reviewed: Laboratory Last Values Hgb A1c (Clinic) 6.9 % (4.0-6.0) H 05/11/25 14:55 Coding Level of Care Code Est Pt Level 4 (12950) Complex EM visit Add On G2211 Diagnoses Type 2 diabetes mellitus with hyperglycemia, without long-term current use of insulin E11.65 Diabetes mellitus long-term insulin use: without long-term use Atrial fibrillation I48.91 Hypercholesterolemia E78.00 Essential hypertension I10 Hypertension type: essential hypertension Obesity (BMI 30-39.9) E66.9 Right carpal tunnel syndrome G56.01 Mild intermittent asthma without complication J45.20 Asthma complication type: uncomplicated Asthma persistence: intermittent Asthma severity: mild Obstructive sleep apnea G47.33 Lumbar degenerative disc disease M51.36 Assessment & Plan Assessment & Plan (1) Type 2 diabetes mellitus with hyperglycemia: Comment: Dr. Cai(retired), Dr. Clark, dr. Davies Code(s): E11.65 - Type 2 diabetes mellitus with hyperglycemia Category: Medical Qualifiers: Diabetes mellitus consulting sales manager insulin use: without long-term use Qualified Code(s): E11.65 - Type 2 diabetes mellitus with hyperglycemia Plan: Decrease the amount of carbohydrate intake, pasta, bread, rice and potatoes are all sugar and that is aside from all the sweet stuff, remember that fruits are good but they are Sweet also. Hemoglobin A1c goal of less than 7.0. Patient is diet controlled (2) Atrial fibrillation: Comment: diagnosed 03/[address] Yuan cardiology Code(s): I48.91 - Unspecified atrial fibrillation Category: Medical Plan: Patient follows up with Cardiology on Eliquis 5 mg twice a day (3) Hypercholesterolemia: Code(s): E78.00 - Pure hypercholesterolemia, unspecified Category: Medical Plan: on Zetia declined cholesterol medication like statins (4) Hypertension: Code(s): I10 - Essential (primary) hypertension Category: Medical Qualifiers: Hypertension type: essential hypertension Qualified Code(s): I10 - Essential (primary) hypertension Plan: Continue with blood pressure medication. Decrease salt intake and exercise on lisinopril 2.5 mg once a day and amlodipine 5 mg once a day (5) Obesity (BMI 30-39.9): Code(s): E66.9 - Obesity, unspecified Category: Medical Plan: Diet and exercise (6) Right carpal tunnel syndrome: Comment: January 2025Moderate to severe right median neuropathy across carpal tunnel. Code(s): G56.01 - Carpal tunnel syndrome, right upper limb Category: Medical Plan: Patient has an upcoming surgery for the carpal tunnel on the right side (7) Asthma: Comment: PFT normal January 2019 Dr. Gilbert Code(s): J45.909 - Unspecified asthma, uncomplicated Category: Medical Qualifiers: Asthma complication type: uncomplicated Asthma persistence: intermittent Asthma severity: mild Qualified Code(s): J45.20 - Mild intermittent asthma, uncomplicated Plan: Patient follows up with Pulmonary on albuterol inhaler Advair montelukast (8) Obstructive sleep apnea: Comment: Sleep study done January 16 2025 moderate degree of sleep apnea with an AHI of 16 with periodic limb movement Code(s): G47.33 - Obstructive sleep apnea (adult) (pediatric) Category: Medical Plan: Patient was advised to use the CPAP for sleep apnea treatment (9) Lumbar degenerative disc disease: Code(s): M51.36 - Other intervertebral disc degeneration, lumbar region Category: Medical Plan History of Present Illness The patient is a 74-year-old female presenting for a follow-up visit. She has a history of diabetes mellitus, which is currently diet-controlled, with a hemoglobin A1c goal of less than 7.0%. She participates in diabetes education programs at [facility]. The patient has asthma and is currently using Advair, albuterol, and montelukast for management. She was advised to undergo pulmonary function testing in 2 to 3 months. She has a history of hypertension and is currently on lisinopril 2.5 mg once daily and amlodipine 5 mg once daily. The patient has hypercholesterolemia with an LDL of 143 mg/dL, triglycerides of 59 mg/dL, and HDL of 80 mg/dL as of July 2024. She declined cholesterol medication such as statins. She has atrial fibrillation and is on Eliquis 5 mg twice daily. The patient has degenerative disc disease and obstructive sleep apnea, for which she was advised to use CPAP therapy. She is scheduled for right carpal tunnel surgery in April 2024, having seen orthopedics for right hand numbness. Preventative care includes a bone density test done in 2017, a colonoscopy in May 2017, and a mammogram in November 2023. Health Maintenance - Bone density screening in 2018 - Colonoscopy in May 2017 - Mammogram in November 2023 Social History - Participates in diabetes education programs at [facility] Review of Systems Physical Exam Results - Labs: LDL 143 mg/dL, Triglycerides 59 mg/dL, HDL 80 mg/dL (July 2024) Plan The patient will continue with her current diabetes management plan, aiming for a hemoglobin A1c of less than 7.0%, and will remain diet-controlled. She will continue attending diabetes education programs at [facility]. For asthma management, the patient will continue using Advair, albuterol, and montelukast. A pulmonary function test is recommended in 2 to 3 months to assess her respiratory status. Her hypertension will be managed with lisinopril 2.5 mg once daily and amlodipine 5 mg once daily. For hypercholesterolemia, despite declining statins, the patient will continue with lifestyle modifications. The patient will continue taking Eliquis 5 mg twice daily for atrial fibrillation. For obstructive sleep apnea, the patient is advised to use CPAP therapy. She is scheduled for right carpal tunnel surgery in April 2024 and will follow up with orthopedics as needed. Patient was informed and verbally consented to the use of an ambient scribe for clinic note documentation during this visit. Discussion Notes Patient Instructions - Continue current diabetes management and attend education programs. - Use Advair, albuterol, and montelukast as prescribed for asthma. - Schedule and complete a pulmonary function test in 2 to 3 months. - Take lisinopril and amlodipine daily for hypertension. - Follow lifestyle modifications for cholesterol management. - Continue Eliquis for atrial fibrillation. - Use CPAP for sleep apnea treatment. - Prepare for right carpal tunnel surgery in April 2024. Orders: Orders PT Evaluation and Treatment Today M25.561 - Pain in right knee, M25.562 - Pain in left knee, M51.36 - Other intervertebral disc degeneration, lumbar region AMB Hemoglobin A1c Today Z13.9 - Encounter for screening, unspecified
== END 2025-05-11 15:31 | disposition home or self-care (01) ==
LOC: HO.HMCH 14:45
PROVIDERS: PCP Internal Medicine; Visit Provider Internal Medicine
DX: E11.65 Type 2 diabetes mellitus with hyperglycemia (principal); I48.91 Unspecified atrial fibrillation; Z68.34 Body mass index [BMI] 34.0-34.9, adult; E66.9 Obesity, unspecified; E78.00 Pure hypercholesterolemia, unspecified; I10 Essential (primary) hypertension; G56.01 Carpal tunnel syndrome, right upper limb; J45.20 Mild intermittent asthma, uncomplicated; G47.33 Obstructive sleep apnea (adult) (pediatric); M51.369 Other intervertebral disc degeneration, lumbar region without mention of lumbar back pain or lower extremity pain

== ENCOUNTER → 2025-05-11 14:44 | Outpatient (BNVA) | payer MEDICARE, SELFPAY | PROVIDERS: PCP Internal Medicine; Visit Provider Internal Medicine | DX: E11.65 Type 2 diabetes mellitus with hyperglycemia (principal); I48.91 Unspecified atrial fibrillation; E78.00 Pure hypercholesterolemia, unspecified; I10 Essential (primary) hypertension; E66.9 Obesity, unspecified; Z68.34 Body mass index [BMI] 34.0-34.9, adult; G56.01 Carpal tunnel syndrome, right upper limb; J45.20 Mild intermittent asthma, uncomplicated; G47.33 Obstructive sleep apnea (adult) (pediatric); M51.369 Other intervertebral disc degeneration, lumbar region without mention of lumbar back pain or lower extremity pain; Z79.01 Long term (current) use of anticoagulants; Z79.899 Other long term (current) drug therapy; Z13.30 Encounter for screening examination for mental health and behavioral disorders, unspecified | CPT/HCPCS: 83036; 96127; 99212 ==

== ENCOUNTER 2025-05-24 11:15 | Day surgery (SDC) | payer MEDICARE, SELFPAY ==
[2025-05-24 11:24] VITALS: BMI 34.8
[2025-05-24 11:29] VITALS: BP 149/64; PULSE 67; RESP 16; TEMP 36.6; O2SAT 94
--- NOTE | 2025-05-24 12:36 | P.OP_ITS ---
Operative Note Operative Note Date of Service: 05/24/25 Narrative: Preop diagnosis: 1. Right Carpal tunnel syndrome Postop diagnosis: same Procedure: 1. Right Carpal tunnel release Surgeon: Abi Stephen MD Customer Agent: Álvaro EISENBERG Anesthesia: local block using 1% lidocaine with epinephrine Findings: Thickened transverse carpal ligament. EBL: Less than 5 mL Specimens: None Complications: None Disposition: Brought to recovery room in stable condition Plan: Follow-up for 10-14 days for wound check and suture removal Indications: The patient is 74 years old, with right carpal tunnel syndrome that has been unresponsive to nonoperative management. The risks and benefits of operative treatment including but not limited to risk of damage to blood vessels, nerves, tendons, infection, persistent pain, persistent symptoms, or possible need for additional surgery were discussed with the patient and the patient wishes to proceed with surgery. Procedure: Once consent was obtained a local block was performed using a combination of 1% lidocaine with epinephrine. The patient was then brought back to the operating suite and placed on the operative table in supine position. The right upper extremity was prepped and draped in a standard surgical fashion. Once assured that we had a good block, a 2.0 cm longitudinal incision was made centered over the carpal tunnel. The incision was made through the skin to the subcutaneous tissues using a #15 blade. Dissection was made down to the level of the transverse carpal ligament with care being taken to protect the palmar cutaneous nerve. Once the transverse carpal ligament was clearly visualized, a longitudinal incision was made in the transverse carpal ligament 1st using a #15 blade, then using tenotomy scissors under direct visualization. Care was taken to look for and protect the motor branch of the median nerve when seen in this area. Once satisfied with our carpal tunnel release the wound was copiously irrigated with normal saline and hemostasis was obtained with a brief period of local pressure. The skin edges were reapproximated with some 5.0 nylon suture material and a sterile dressing was applied. The patient appears to have tolerated the procedure well and with no complications. All digits were well vascularized at the conclusion of the case.
--- NOTE | 2025-05-24 12:36 | MHC.SHP ---
Pre-Procedural Eval Section A - 24 Hr Update-Section A only Date of Service: 05/24/25 The patient is an INPATIENT: No Changes since office visit: No Cold of Flu in the past 2 weeks, No New Medical Problems, No Changes in Medication and No Patient answered all questions The patient has been examined within 24 hours of the surgical procedure. The History & Physical has been completed within 30 days and I have reviewed it.: Yes Section B - Complete if H&P > 30 days Chief Complaint: Carpal tunnel syndrome, right upper limb Allergies: Allergies Allergy/AdvReac Type Severity Reaction Status Date / Time levofloxacin (Levaquin) Allergy Unknown Rash Verified 05/11/25 14:53 shrimps Allergy Severe Hives Uncoded 05/24/25 11:23 Clindamycin HCl Allergy Unknown Rash Uncoded 05/11/25 14:53 Plan Diagnosis/Plan: Unchanged I have reviewed the history and physical and performed a pertinent physical examination on my patient. No changes have occurred unless specified. Time Spent With Patient Time: Total time managing care of this patient today ____ minutes.
[2025-05-24 13:48] VITALS: BP 151/64; PULSE 93; RESP 16; O2SAT 97
== END 2025-05-24 13:50 | disposition home or self-care (01) ==
PROVIDERS: PCP Internal Medicine; Visit Provider Orthopaedic Surgery
PROC: (CPT 64721; principal; 2025-05-24 12:40)
DX: G56.01 Carpal tunnel syndrome, right upper limb (principal); R20.0 Anesthesia of skin; I48.91 Unspecified atrial fibrillation; I10 Essential (primary) hypertension; I73.9 Peripheral vascular disease, unspecified; E78.00 Pure hypercholesterolemia, unspecified; E11.65 Type 2 diabetes mellitus with hyperglycemia; E55.9 Vitamin D deficiency, unspecified; J45.909 Unspecified asthma, uncomplicated; E66.9 Obesity, unspecified; Z68.35 Body mass index [BMI] 35.0-35.9, adult; Z88.1 Allergy status to other antibiotic agents
CPT/HCPCS: 64721; J0165; J2003

== ENCOUNTER → 2025-05-24 11:15 | Outpatient (BNV) | payer MEDICARE, SELFPAY | PROVIDERS: PCP Internal Medicine; Visit Provider Orthopaedic Surgery | DX: G56.01 Carpal tunnel syndrome, right upper limb (principal) | CPT/HCPCS: 64721 ==

== ENCOUNTER 2025-06-06 14:55 | Outpatient (AMB) | payer MEDICARE, SELFPAY ==
--- OUTSIDE RECORDS SUMMARY | 2025-06-06 15:02 | XMS_ITS | Patient Health Record ---
Author Organization [facility] Address [address] [place] [address] Care Team Providers Care Bread Stacker Name Role Phone Cain Lyman Primary Care Provider Vamsi Jones Unavailable [phone] Allergies Allergen (clinical drug ingredient) Drug/Non Drug [...] 10 10 MG 1 capsule with a chairty l Orally Once a day Active Fish [...] Polyneuropathy due to type 2 diabetes mellitus (556784880) Type 2 diabetes mellitus with diabetic polyneuropathy (E11.42) Active confirmed Plan Of Treatment Pending Test Test Name Order Date Hemoglobin A1c 03/04/2015 Hemoglobin A1c 11/07/2015 [id number] NAIL, 6 OR MORE 01/15/2014 [id number] NAIL, 6 OR MORE 03/04/2015 [id number] NAIL, 6 OR MORE 11/07/2015 72469-WPNEOLS NAIL, 6 OR MORE 03/12/2016 55980-Xcphvvnr Plate 01/15/2014 07046-Xlurxjam Plate 11/07/2015 56041-LBDH SKIN LESIONS, OVER 4 11/07/19 16 48259-VNTP SKIN LESIONS, OVER 4 03/04/20 15 56472-JOOS SKIN LESIONS, OVER 4 03/12/20 16 74138-DFEP SKIN LESIONS, OVER 4 01/16/20 14 Insurance Providers Payer Name Payer Address Payer Phone Subscriber Number Group Number Insured Name Patient Relationship to Insured Coverage Start Date Coverage End Date [employer] [place] Medicare [employer]vantage [address] [place] [address] [id number] Bev Shah Self - patient is the insured Medical (General) History Medical History History ICD Code type II diabetes Hypercholesterolemia Back,Hip,and Knee pain High blood pressure Sciatica Measles Mumps Chicken pox COPD Surgical History Surgery Date(Month/Year) tonsillectomy 1952
--- OUTSIDE RECORDS SUMMARY | 2025-06-06 15:02 | XMS_ITS | Patient Health Record ---
Author Organization [facility] Address [address] [place] [address] Care Team Providers Care Fire Truck Driver Name Role Phone Cain Lyman MD Primary Care Provider Quique Medina [phone] Allergies Allergen (clinical drug ingredient) Drug/Non Drug [...] Problem Status W/U Status Risk Notes Problem [id number] Encounter for screening for malignant neoplasm of colon (Z12.11) Active confirmed Problem Screening for malignant neoplasm of rectum (285685551) Encounter for screening for malignant neoplasm of rectum (Z12.12) Active confirmed Problem 12103093 Preprocedural examination (Z01.818) Active confirmed Problem 655949955 Long-term use of aspirin therapy (Z79.82) Active confirmed Plan Of Treatment Future Test Test Name Order Date COLONOSCOPY 06/04/2016 Insurance Providers Payer Name Payer Address Payer Phone Subscriber Number Group Number Insured Name Patient Relationship to Insured Coverage Start Date Coverage End Date [facility] [address] [place] [phone] [id number] CHASE DYSON Self - patient is the insured Medical (General) History Medical History History ICD Code Screening colonocopy 03-18-2006---neg. ex cept for internal hemorrhoids Hypertension Mild COPD Hypercholesterolemia Denies NV,DM,CVA,renal disease Seasonal allergies/postnasal drip Surgical History Surgery Date(Month/Year) tonsillectomy
--- OUTSIDE RECORDS SUMMARY | 2025-06-06 15:02 | XMS_ITS | Clinical Summary ---
Author Organization [facility] Address 2 [facility] [place] [address] Phone Care Team Providers Care Marble Helper Name Role Phone Cain Lyman MD Primary Care Provider [phone] Allergies Active Allergy Reactions Criticality Noted Date [...] 10 MG Cap daily. Active glucos sul 2KCl/msm/chond/C /Mn (GLUCOSAMINE CHONDROITIN ORAL) 1 tablet 2 (two) [...] day. 90 tablet 1 5 Active lisinopriL (PRINIVIL,ZESTRI L) 2.5 mg tablet TAKE 1 TABLET BY [...] use, clean tip and replace cap. Active Active Problems Problem Noted Date Diagnosed Date [...] Continues to be anticoagulated on warfarin. Her NJQ1XO3-OBMz score is 4 for hypertension, diabetes, age [...] and palpitations. Chronic obstructive pulmonar y disease ([facility] V24, [facility] V28) 01/21/2017 Allergic rhinitis 12/11/2016 Diabetes mellitus type 2, un complicated ([facility] V24, [facility] V28) 12/11/2016 Hyperlipidemia 12/11/2016 Overview (10/24/2024): Patient [...] Description 04/25/2025 11:20 AM EDT Office Visit [facility] [address] [place] [address] Charli Yuan MD Atrial fibrillation, unspecified type ([facility] V24, [facility] V28) (Primary Dx) from Last 3 Months Surgical History Surgery Date Site/Laterality Comments OTHER SURGICAL HISTORY PROCEDURE: ---- OTHER ----; COMMENT: rhinoplasty TONSILLECTOMY PROCEDURE: HISTORICAL TONSILLECTOMY Medical History Medical History Date Comments Allergic rhinitis 12/11/2016 DX:Allergic rh initis Cardiac disease 12/11/2016 DX:Cardiac disea se Chronic obstructive pulmonar y disease ([facility] V24, [facility] V28) 01/21/2017 DX:Chronic obstructive pulm onary disease (HCC) Diabetes mellitus type 2, un complicated ([facility] V24, [facility] V28) 12/11/2016 DX:Diabetes mellitus type 2 , [...] fibrillation, unspecified type (CMS/HCC V24, CMS/HCC V28) from Last 3 Months Results * ECG 12 lead (04/25/2025 11:42 AM EDT) Ventricular Rate ECG 85 BPM GEMUSE Atrial Rate 234 BPM GEMUSE QRS Duration 82 ms GEMUSE Q-T Interval 374 ms GEMUSE QTc 445 ms GEMUSE R [place] 65 degrees GEMUSE T [place] -2 degrees GEMUSE ECG Interpretation Atrial fibrillation with premature ventricular or aberrantly conducted complexes Nonspecific T wave abnormality Abnormal ECG No previous ECGs available Confirmed by Lolis YUAN JAMES ([id number]) on 04/25/2025 12:10:06 PM GEMUSE 04/25/2025 11:4 2 AM EDT 04/25/2025 12:10 PM EDT us Charli Yuan MD ECG ORDERABLES Final Result GEMUSE from Last 3 Months Insurance [employer] Care Teams Marble Helper Relationship Specialty Start Date End Date Cain Lyman MD [address] [place] [address] [address] [facility] [place] [address] PCP - General Internal Medicine 07/06/13
--- NOTE | 2025-06-06 15:03 | A.OFFVIS_ITS ---
Vital Signs 06/06/25 15:04 Height 5 ft 3 in Weight 196 lb BMI 34.7 Intake Visit Reasons: PO RT CTR 05/24/25 AR Intake Note: Bev is a 74 year old hand right dominant female who presents today for their first post-operative visit status post right carpel tunnel release DOS:05/24/[address] Stephen. Patient reports the numbness and tingling have improved but are still present. She states since the surgery her right thumb has swelled up. Sutures removed and steri strips applied. Allergies levofloxacin (Levaquin) Allergy (Unknown, Verified 06/06/25 15:04) Rash shrimps Allergy (Severe, Uncoded 06/06/25 15:04) Hives Clindamycin HCl Allergy (Unknown, Uncoded 06/06/25 15:04) Rash HPI HPI PO RT CTR 05/24/25 AR: Details: Bev is a 74 year old hand right dominant female who presents today for their first post-operative visit status post right carpel tunnel release DOS:05/24/[address] Stephen. Patient reports the numbness and tingling have improved but are still present. She states since the surgery her right thumb has swelled up. Sutu res removed and steri strips applied. [facility] Medical History Atrial fibrillation Cataract Cataract Vitreous detachment Wandering atrial pacemaker Type 2 diabetes mellitus with hyperglycemia Vitamin D deficiency Obesity (BMI 30-39.9) Asthma Hypertension Peripheral vascular disease Osteopenia Hypercholesterolemia Surgical History History of tonsillectomy Family History Mother Ovarian cancer Father No problems noted. Son No problems noted. Daughter Polymyositis Social History Housing: House Alcohol intake: never Patient Tobacco Use Status: Never used Tobacco Tobacco use type: Cigarette e-Cigarette/Vaping Use: Never Used Second Hand Smoke Exposure: Yes service: No Current occupational status: retired Cognitive needs: No Hearing needs: No Vision needs: Yes (reading glasses ) Review of Systems Const All systems reviewed & are unremarkable except as noted in HPI and below Physical Exam Vital Signs: BMI result Body Mass Index 34.7 Extrem Other: Neuro: Normal sensation of the tips of all digits of the right hand in the office today Significant thenar wasting noted on the right Good APB muscle firing and good finger cross. Vascular: Capillary refill brisk. ROM: Patient can make a fist and extend all their digits. Skin: Well approximated and well healing incision site noted on the volar right wrist No lacerations or abrasions noted. General: No ecchymosis. No erythema or evidence of infection. Assessment & Plan Assessment & Plan (1) Right carpal tunnel syndrome: Comment: January 2025Moderate to severe right median neuropathy across carpal tunnel. Code(s): G56.01 - Carpal tunnel syndrome, right upper limb Category: Medical Plan 1. Status post right carpal tunnel release DOS 05/24/2025 Patient appears to be recovering very well postoperatively Patient is educated about the typical recovery course 2 lb weight limit x2 more weeks, no under water or dirty activities times one- week No acute follow-up indicated, as patient appears to be recovering very well postoperatively Patient is amenable to this plan Follow-up as needed Coding Level of Care Code Global (31532) Diagnoses Right carpal tunnel syndrome G56.01
[2025-06-06 15:04] VITALS: BMI 34.7
== END 2025-06-06 15:21 | disposition home or self-care (01) ==
LOC: HO.HOS 14:56
PROVIDERS: PCP Internal Medicine
DX: G56.01 Carpal tunnel syndrome, right upper limb (principal)
CPT/HCPCS: 99024

== ENCOUNTER → 2025-06-06 14:55 | Outpatient (BNVA) | payer MEDICARE, SELFPAY | PROVIDERS: PCP Internal Medicine | DX: G56.01 Carpal tunnel syndrome, right upper limb (principal); Z98.890 Other specified postprocedural states | CPT/HCPCS: 99212 ==

== ENCOUNTER → 2025-06-21 20:30 | Outpatient (REF) | payer MEDICARE, SELFPAY ==
--- OUTSIDE RECORDS SUMMARY | 2025-06-22 01:10 | XMS_ITS | Clinical Summary ---
Author Organization [facility] Address 2 [facility] [place] [address] Phone Care Team Providers Care Rotary Helper Name Role Phone Cain Lyman MD Primary Care Provider [phone] Allergies Active Allergy Reactions Criticality Noted Date [...] Continues to be anticoagulated on warfarin. Her [id number]-RFPq score is 4 for hypertension, diabetes, age [...] and palpitations. Chronic obstructive pulmonar y disease ([facility] V24, [facility] V28) 01/21/2017 Allergic rhinitis 12/11/2016 Diabetes mellitus type 2, un complicated ([facility] V24, [facility] V28) 12/11/2016 Hyperlipidemia 12/11/2016 Overview (10/24/2024): Patient [...] Description 04/25/2025 11:20 AM EDT Office Visit [facility] [address] [place] [address] Charli Yuan MD Atrial fibrillation, unspecified type ([facility] V24, [facility] V28) (Primary Dx) from Last 3 Months Surgical History Surgery Date Site/Laterality Comments OTHER SURGICAL HISTORY PROCEDURE: ---- OTHER ----; COMMENT: rhinoplasty TONSILLECTOMY PROCEDURE: HISTORICAL TONSILLECTOMY Medical History Medical History Date Comments Allergic rhinitis 12/11/2016 DX:Allergic rh initis Cardiac disease 12/11/2016 DX:Cardiac disea se Chronic obstructive pulmonar y disease ([facility] V24, [facility] V28) 01/21/2017 DX:Chronic obstructive pulm onary disease (HCC) Diabetes mellitus type 2, un complicated ([facility] V24, [facility] V28) 12/11/2016 DX:Diabetes mellitus type 2 , [...] ms GEMUSE QTc 445 ms GEMUSE R [place] 65 degrees GEMUSE T [place] -2 degrees GEMUSE ECG Interpretation Atrial fibrillation [...] [employer] Care Teams Rotary Helper Relationship Specialty Start Date End Date Cain Lyman MD [address] [place] [address] [address] [facility] [place] [address] PCP - General Internal Medicine 07/06/13
== END ==
LOC: HO.SL 20:30
PROVIDERS: PCP Internal Medicine; Visit Provider Hospitalist
DX: G47.33 Obstructive sleep apnea (adult) (pediatric) (principal)
CPT/HCPCS: 95811

== ENCOUNTER → 2025-06-22 00:52 | Outpatient (BNV) | payer MEDICARE, SELFPAY | PROVIDERS: PCP Internal Medicine; Visit Provider Internal Medicine | DX: G47.33 Obstructive sleep apnea (adult) (pediatric) (principal) | CPT/HCPCS: 95811 ==

== ENCOUNTER 2025-07-03 15:46 | Outpatient (REF) | payer MEDICARE, SELFPAY ==
--- NOTE | 2025-07-03 15:49 | PFT_ITS ---
Indication: Asthma Spirometry FEV1 to FVC 65; FEV1 1.58 L; FVC 2.42 L. there is a significant response to bronchodilators noted. To note the FEF 03/13/2075 decrease to 25% predicted Lung Volumes Total lung capacity 97% predicted; residual volume 105% predicted Diffusion Capacity DLCO 96% predicted Comparisons None Interpretation There is an obstructive ventilatory defect consistent with moderate COPD. This could also be secondary to uncontrolled asthma. The patient did have a significant response to bronchodilators noted. Significant small airways disease secondary to the diagnosis of asthma. Lung volumes and diffusing capacity are both within normal limits. Clinical correlation warranted. MTDD
[2025-07-03 16:34] VITALS: PULSE 52; O2SAT 97
--- OUTSIDE RECORDS SUMMARY | 2025-07-03 17:57 | XMS_ITS | Patient Health Record ---
[facility] Address [address] [place] [address] Care Team Providers Care Belt Maker Name Role Phone Cain Lyman Primary Care Provider Vamsi Jones Unavailable [phone] Allergies Allergen (clinical drug ingredient) Drug/Non Drug [...] Polyneuropathy due to type 2 diabetes mellitus (337139488) Type 2 diabetes mellitus with diabetic polyneuropathy (E11.42) Active confirmed Plan Of Treatment Pending Test Test Name Order Date Hemoglobin A1c 03/04/2015 Hemoglobin A1c 11/07/2015 [id number] NAIL, 6 OR MORE 01/15/2014 [id number] NAIL, 6 OR MORE 03/04/2015 [id number] NAIL, 6 OR MORE 11/07/2015 [id number] NAIL, 6 OR MORE 03/12/2016 [id number]-Hyyliijk Plate 01/15/2014 [id number]-Qlbidlhc Plate 11/07/2015 [id number]-[id number] SKIN LESIONS, OVER 4 11/07/19 16 22484-DHMW SKIN LESIONS, OVER 4 03/04/20 15 [id number] SKIN LESIONS, OVER 4 03/12/20 16 [id number] SKIN LESIONS, OVER 4 01/16/20 14 Insurance Providers Payer Name Payer Address Payer Phone Subscriber Number Group Number Insured Name Patient Relationship to Insured Coverage Start Date Coverage End Date [employer] [place] [employer] [address] [place] [address] [id number] Bev Shah Self - patient is the insured Medical (General) History Medical History History ICD Code type II diabetes Hypercholesterolemia Back,Hip,and Knee pain High blood pressure Sciatica Measles Mumps Chicken pox COPD Surgical History Surgery Date(Month/Year) tonsillectomy 1952
--- OUTSIDE RECORDS SUMMARY | 2025-07-03 17:57 | XMS_ITS | Clinical Summary ---
Author Organization [facility] [employer] Address [address] [facility] [place] [address] Phone Care Team Providers Care Car Runner Name Role Phone Cain Lyman MD Primary Care Provider [phone] Allergies Active Allergy Reactions Criticality Noted Date [...] Continues to be anticoagulated on warfarin. Her FAE0TH7-MHCg score is 4 for hypertension, diabetes, age [...] and palpitations. Chronic obstructive pulmonar y disease ([facility] V24, [facility] V28) 01/21/2017 Allergic rhinitis 12/11/2016 Diabetes mellitus type 2, un complicated ([facility] V24, [facility] V28) 12/11/2016 Hyperlipidemia 12/11/2016 Overview (10/24/2024): Patient [...] Description 04/25/2025 11:20 AM EDT Office Visit [facility] [address] [place] [address] Charli Yuan MD Atrial fibrillation, unspecified type ([facility] V24, [facility] V28) (Primary Dx) from Last 3 Months Surgical History Surgery Date Site/Laterality Comments OTHER SURGICAL HISTORY PROCEDURE: ---- OTHER ----; COMMENT: rhinoplasty TONSILLECTOMY PROCEDURE: HISTORICAL TONSILLECTOMY Medical History Medical History Date Comments Allergic rhinitis 12/11/2016 DX:Allergic rh initis Cardiac disease 12/11/2016 DX:Cardiac disea se Chronic obstructive pulmonar y disease ([facility] V24, [facility] V28) 01/21/2017 DX:Chronic obstructive pulm onary disease (HCC) Diabetes mellitus type 2, un complicated ([facility] V24, [facility] V28) 12/11/2016 DX:Diabetes mellitus type 2 , [...] 10/08/2022 Hypertension/CHF/CAD Annual BMP Blood Test 10/08/2022 RSV Immunization Adult Patients (1 - 1-dose 75+ series) 2024 Depression Screening 10/25/2024 COVID-19 Vaccine (2 - 2024-2 6 season) 2025 02/24/2021 Influenza Vaccine (#1) 2025 6, 04/08/2015 HIB [...] ms GEMUSE QTc 445 ms GEMUSE R [place] 65 degrees GEMUSE T [place] -2 degrees GEMUSE ECG Interpretation Atrial fibrillation [...] [employer] Care Teams Car Runner Relationship Specialty Start Date End Date Cain Lyman MD [address] [place] [address] [address] [facility] [place] [address] PCP - General Internal Medicine 07/06/13
--- OUTSIDE RECORDS SUMMARY | 2025-07-03 17:57 | XMS_ITS | Patient Health Record ---
Author Organization [facility] Address [address] [place] [address] Care Team Providers Care Hamper Maker Machine Name Role Phone Cain Lyman MD Primary Care Provider Quique Medina [phone] Allergies Allergen (clinical drug ingredient) Drug/Non Drug [...] Problem Status W/U Status Risk Notes Problem [id number] Encounter for screening for malignant neoplasm of colon (Z12.11) Active confirmed Problem Screening for malignant neoplasm of rectum (122165103) Encounter for screening for malignant neoplasm of rectum (Z12.12) Active confirmed Problem 12542675 Preprocedural examination (Z01.818) Active confirmed Problem 497218300 Long-term use of aspirin therapy (Z79.82) Active confirmed Plan Of Treatment Future Test Test Name Order Date COLONOSCOPY 06/04/2016 Insurance Providers Payer Name Payer Address Payer Phone Subscriber Number Group Number Insured Name Patient Relationship to Insured Coverage Start Date Coverage End Date [facility] [address] [place] [phone] [id number] CHASE DYSON Self - patient is the insured Medical (General) History Medical History History ICD Code Screening colonocopy 03-18-2006---neg. ex cept for internal hemorrhoids Hypertension Mild COPD Hypercholesterolemia Denies CT,DM,CVA,renal disease Seasonal allergies/postnasal drip Surgical History Surgery Date(Month/Year) tonsillectomy
== END 2025-07-03 15:47 | disposition home or self-care (01) ==
LOC: HO.RESP 15:46
PROVIDERS: PCP Internal Medicine; Visit Provider Hospitalist
DX: J45.20 Mild intermittent asthma, uncomplicated (principal)
CPT/HCPCS: 94010; 94640; 94727; 94729

== ENCOUNTER → 2025-07-03 15:49 | Outpatient (BNV) | payer MEDICARE, SELFPAY | PROVIDERS: PCP Internal Medicine; Visit Provider Hospitalist | DX: J98.4 Other disorders of lung (principal) | CPT/HCPCS: 94060; 94727; 94729 ==

== ENCOUNTER 2025-07-20 13:00 | Outpatient (AMB) | payer MEDICARE, SELFPAY ==
[2025-07-20 13:03] VITALS: BP 150/50; PULSE 59; O2SAT 95; BMI 35.5
--- NOTE | 2025-07-20 13:03 | A.OFFVIS_ITS ---
Vital Signs 07/20/25 13:03 Height 5 ft 3 in Weight 200 lb 9.93 oz BMI 35.5 BP 150/50 H Blood Pressure Location Lt brachial Position Sitting Pulse 59 Pulse Source Pulse Oximeter Pulse Oximetry (%) 95 Oxygen Delivery Method Room Air Intake Visit Reasons: Asthma Florist Designer Required: No Allergies levofloxacin (Levaquin) Allergy (Unknown, Verified 07/20/25 13:06) Rash shrimps Allergy (Severe, Uncoded 06/06/25 15:04) Hives Clindamycin HCl Allergy (Unknown, Uncoded 06/06/25 15:04) Rash HPI Comments Details: The patient is a 75 year woman with known history of asthma in addition to obstructive sleep apnea complaining of significant shortness of breath and also fatigue. She also has a cardiac history with atrial fibrillation. Recently she did undergo a sleep study demonstrating moderate degree of sleep apnea. She is about to start CPAP therapy at this time. In the meantime she struggles with her asthma. She does shortness of breath and chest tightness that limit her activity. Moderate severity. The patient did have some inhalers including Pulmicort Flexhaler and also albuterol. She does not like the powder inhalers because it caused thrush. She can not tolerate them. She does have wheezing on exam she does have a history of atrial fibrillation so therefore she needs somet dorys gentle. I do believe the Advair HFA will be a very good option for her. Ascending to the pharmacy. The patient should also continue with her allergy therapy. She has significant nasal congestion. Under blood work she does have an elevated eosinophil count suggesting eosinophilic asthma. If she does not respond to inhaler therapy she will be a good candidate for biologic therapy. The patient will undergo pulmonary function studies back in next 2-3 months. In the meantime she is going to start CPAP and she should bring the CPAP with her to be adjusted. She has not issues she can always call for an earlier assessment. 07/20/2025 the patient is here for pulmonary follow-up visit. Overall the patient has been doing well. She has been using her CPAP. She is tolerating her mask. Current pressures are 8-15. It appears that she needs a higher pressure. I did adjusted up to maximum 17. Hopefully she can not tolerate this pressure. Also increase the ran from 04/20. The patient does have a very comfortable mask and she is very happy with the response. Her Watrous score is better. The patient also has underlying asthma. Appears to be uncontrolled based on her PFTs still demonstrating a persistent obstruction. The patient did start Advair although she did not tolerate it because of hoarseness. Therefore she stopped it. I also gave him prescription for Singulair but she did not take it because of the side effects. I did provide her a spacer in the office. She is going to restarted 1 puff twice a day and rinse and gargle with salt water. She can also use her nasal sprays. If no better she can start the Singulair. She will stick to half a tablet because she is concerned about the side effects. And will follow-up in 6-8 months if she has any issues prior to this she will call for an earlier assessment REPLACED BY [facility] Medical History Atrial fibrillation Cataract Cataract Vitreous detachment Wandering atrial pacemaker Type 2 diabetes mellitus with hyperglycemia Vitamin D deficiency Obesity (BMI 30-39.9) Asthma Hypertension Peripheral vascular disease Osteopenia Hypercholesterolemia Surgical History History of tonsillectomy Family History Mother Ovarian cancer Father No problems noted. Son No problems noted. Daughter Polymyositis Social History Housing: House Alcohol intake: never Patient Tobacco Use Status: Never used Tobacco Tobacco use type: Cigarette e-Cigarette/Vaping Use: Never Used Second Hand Smoke Exposure: Yes service: No Current occupational status: retired Cognitive needs: No Hearing needs: No Vision needs: Yes (reading glasses ) Review of Systems Const Reports daytime sleepiness, Reports fatigue, Denies poor appetite and Denies weakness Eyes Denies no additional complaints ENT Reports Normal hearing present, Denies dizziness, Denies nasal congestion, Denies tinnitus and Denies sore throat Card Denies chest pain, Denies syncope, Denies rapid heart rate, Denies dyspnea and Reports dyspnea on exertion Resp Reports cough, Denies dyspnea and Reports dyspnea on exertion GI Denies change in stool character, Reports constipation, Denies diarrhea, Denies nausea and Denies vomiting Denies urinary frequency, Denies difficulty voiding and Denies dysuria Neuro Reports Normal hearing present, Denies dizziness, Denies syncope and Denies weakness Endo Reports fatigue Physical Exam Vital Signs: Last Vital Signs Pulse 59 07/20/25 13:03 BP 150/50 H 07/20/25 13:03 Pulse Ox 95 07/20/25 13:03 Oxygen Delivery Method Room Air 07/20/25 13:03 BMI result Body Mass Index 35.5 Const General: comfortable HEENT Head: Yes normocephalic Neck Neck: Yes supple Chest Chest palpation & inspection: normal inspection of the chest Resp Effort & Inspection: normal respiratory effort Auscultation: wheezes and diminished lung sounds Cardio Heart sounds: S1 normal heart sound present and S2 normal heart sound present GI Palpation (GI): Soft to palpation Skin General skin exam: no rashes or lesions noted Neuro Cranial nerves: Yes Normal hearing present Extrem General: Yes no clubbing, cyanosis or edema Assessment & Plan Assessment & Plan (1) Obstructive sleep apnea: Comment: Sleep study done January 16 2025 moderate degree of sleep apnea with an AHI of 16 with periodic limb movement Code(s): G47.33 - Obstructive sleep apnea (adult) (pediatric) Category: Medical (2) Asthma: Comment: PFT normal January 2019 Dr. Gilbert Code(s): J45.909 - Unspecified asthma, uncomplicated Category: Medical Qualifiers: Asthma complication type: uncomplicated Asthma persistence: intermittent Asthma severity: mild Qualified Code(s): J45.20 - Mild intermittent asthma, uncomplicated Plan Advair HFA with spacer SANDIE as needed start Singulair 1/2 tablet QHS continue APAP F/U 6 months Coding Level of Care Code Est Pt Level 4 (98806) Complex EM visit Add On G2211 Diagnoses Obstructive sleep apnea G47.33 Mild intermittent asthma without complication J45.20 Asthma complication type: uncomplicated Asthma persistence: intermittent Asthma severity: mild Time Spent (min) 17
--- OUTSIDE RECORDS SUMMARY | 2025-07-20 14:24 | XMS_ITS | Patient Health Record ---
Author Organization [facility] Address [address] [place] [address] Care Team Providers Care Construction Driller Name Role Phone Cain Lyman MD Primary Care Provider Quique Medina [phone] Allergies Allergen (clinical drug ingredient) Drug/Non Drug [...] Problem Status W/U Status Risk Notes Problem 751194002 Encounter for screening for malignant neoplasm of colon (Z12.11) Active confirmed Problem Screening for malignant neoplasm of rectum (047697558) Encounter for screening for malignant neoplasm of rectum (Z12.12) Active confirmed Problem 02193452 Preprocedural examination (Z01.818) Active confirmed Problem 252629823 Long-term use of aspirin therapy (Z79.82) Active confirmed Plan Of Treatment Future Test Test Name Order Date COLONOSCOPY 06/04/2016 Insurance Providers Payer Name Payer Address Payer Phone Subscriber Number Group Number Insured Name Patient Relationship to Insured Coverage Start Date Coverage End Date [facility] [employer] [address] [place] [phone] [id number] CHASE DYSON Self - patient is the insured Medical (General) History Medical History History ICD Code Screening colonocopy 03-18-2006---neg. ex cept for internal hemorrhoids Hypertension Mild COPD Hypercholesterolemia Denies PR,DM,CVA,renal disease Seasonal allergies/postnasal drip Surgical History Surgery Date(Month/Year) tonsillectomy
--- OUTSIDE RECORDS SUMMARY | 2025-07-20 14:24 | XMS_ITS | Patient Health Record ---
[facility] Address [address] [place] [address] Care Team Providers Care Remediation Consultant Name Role Phone Cain Lyman Primary Care Provider Vamsi Jones Unavailable [phone] Allergies Allergen (clinical drug ingredient) Drug/Non Drug [...] Polyneuropathy due to type 2 diabetes mellitus ([id number]) Type 2 diabetes mellitus with diabetic polyneuropathy (E11.42) Active confirmed Plan Of Treatment Pending Test Test Name Order Date Hemoglobin A1c 03/04/2015 Hemoglobin A1c 11/07/2015 [id number] NAIL, 6 OR MORE 01/15/2014 [id number] NAIL, 6 OR MORE 03/04/2015 [id number] NAIL, 6 OR MORE 11/07/2015 [id number] NAIL, 6 OR MORE 03/12/2016 [id number] Plate 01/15/2014 [id number] Plate 11/07/2015 [id number] SKIN LESIONS, OVER 4 11/07/19 16 [id number] SKIN LESIONS, OVER 4 03/04/20 15 [id number] SKIN LESIONS, OVER 4 03/12/20 16 [id number] SKIN LESIONS, OVER 4 01/16/20 14 Insurance Providers Payer Name Payer Address Payer Phone Subscriber Number Group Number Insured Name Patient Relationship to Insured Coverage Start Date Coverage End Date [employer] [address] [place] [address] [phone] [id number] Bev Shah Self - patient is the insured Medical (General) History Medical History History ICD Code type II diabetes Hypercholesterolemia Back,Hip,and Knee pain High blood pressure Sciatica Measles Mumps Chicken pox COPD Surgical History Surgery Date(Month/Year) tonsillectomy 1952
--- OUTSIDE RECORDS SUMMARY | 2025-07-20 14:24 | XMS_ITS | Clinical Summary ---
Author Organization [facility] Address [address] [place] [address] Phone Care Team Providers Care Crisis Nurse Name Role Phone Cain Lyman MD Primary Care Provider [phone] Allergies Active Allergy Reactions Criticality Noted Date [...] Continues to be anticoagulated on warfarin. Her [id number] score is 4 for hypertension, diabetes, age [...] and palpitations. Chronic obstructive pulmonar y disease ([facility] V24, [facility] V28) 01/21/2017 Allergic rhinitis 12/11/2016 Diabetes mellitus type 2, un complicated ([facility] V24, [facility] V28) 12/11/2016 Hyperlipidemia 12/11/2016 Overview [...] Encounters Date Type Department Care Team Description 07/07/2025 Telephone [facility] Cardiology [facility] [address] [place] [address] Mandy Lopez NP 04/25/2025 11:20 AM EDT Office Visit [facility] [address] [place] [phone] Leland Yuan MD Atrial fibrillation, unspecified type ([facility] V24, [facility] V28) (Primary Dx) from Last 3 Months Surgical History Surgery Date Site/Laterality Comments OTHER SURGICAL HISTORY PROCEDURE: ---- OTHER ----; COMMENT: rhinoplasty TONSILLECTOMY PROCEDURE: HISTORICAL TONSILLECTOMY Medical History Medical History Date Comments Allergic rhinitis 12/11/2016 DX:Allergic rh initis Cardiac disease 12/11/2016 DX:Cardiac disea se Chronic obstructive pulmonar y disease ([facility] V24, [facility] V28) 01/21/2017 DX:Chronic obstructive pulm onary disease (HCC) Diabetes mellitus type 2, un complicated ([facility] V24, [facility] V28) 12/11/2016 DX:Diabetes mellitus type 2 , [...] 04/25/2025 11:33 AM EDT Plan of Treatment Upcoming Encounters Date Type Department Care Team (Late st Contact Info) Description 10/29/2025 2:40 PM EST Office Visit [facility] [address] [place] [phone] Mandy Lopez NP [address] [place] [address] [place] [phone] Health Maintenance Due Date Last Done Comments Diabetes: Annual GFR (Glomerular Filtration Rate) 1949 Diabetes: Annual Foot Exam 1959 Diabetes: Annual Retina Eye Exam 1959 DTaP,Tdap,and Td Vaccines (1 - Tdap) 1968 Pneumococcal Vaccine: 50+ Years (1 of 2 - PCV) 1968 Zoster Vaccines (1 of 2) 1999 Cholesterol Screening (Lipid Panel) 09/27/2022 Falls Risk Assessment 09/27/2022 Hepatitis C [...] ms GEMUSE QTc 445 ms GEMUSE R Leopold 65 degrees GEMUSE T Leopold -2 degrees GEMUSE ECG Interpretation Atrial fibrillation with premature ventricular or aberrantly conducted complexes Nonspecific T wave abnormality Abnormal ECG No previous ECGs available Confirmed by Lolis YUAN, LELAND ([id number]) on 04/25/2025 12:10:06 PM GEMUSE 04/25/2025 11:4 2 AM EDT 04/25/2025 12:10 PM EDT us Leland Yuan MD ECG ORDERABLES Final Result GEMUSE from Last 3 Months Insurance [employer] [place] Care Teams Crisis Nurse Relationship Specialty Start Date End Date Cain Lyman MD [address] [place] [address] [address] [facility] [place] [address] PCP - General Internal Medicine 07/06/13
== END 2025-07-20 13:26 | disposition home or self-care (01) ==
LOC: HO.HPS 13:01
PROVIDERS: PCP Internal Medicine; Visit Provider Hospitalist
DX: G47.33 Obstructive sleep apnea (adult) (pediatric) (principal); J45.20 Mild intermittent asthma, uncomplicated
CPT/HCPCS: 99214; G2211

== ENCOUNTER → 2025-07-20 13:00 | Outpatient (BNVA) | payer MEDICARE, SELFPAY | PROVIDERS: PCP Internal Medicine; Visit Provider Hospitalist | DX: G47.33 Obstructive sleep apnea (adult) (pediatric) (principal); J45.20 Mild intermittent asthma, uncomplicated | CPT/HCPCS: 99212 ==

== ENCOUNTER 2025-08-27 16:01 | Outpatient (AMB) | payer MEDICARE, SELFPAY ==
--- NOTE | 2025-08-27 16:03 | MHC.PC.OV ---
Vital Signs 08/27/25 16:05 Height 5 ft 3 in Weight 202 lb BMI 35.8 BP 132/72 Blood Pressure Location Lt brachial Position Sitting Pulse 59 Pulse Source Pulse Oximeter Temp 97.0 F Temp Source Temporal Artery Scan Pulse Oximetry (%) 97 Oxygen Delivery Method Room Air Intake Visit Reasons: JEANINE, DM, hypercholesterol Allergies levofloxacin (Levaquin) Allergy (Unknown, Verified 08/27/25 16:09) Rash shrimps Allergy (Severe, Uncoded 08/27/25 16:09) Hives Clindamycin HCl Allergy (Unknown, Uncoded 08/27/25 16:09) Rash Medication List - Last Reconciled 08/27/25 by Cain Carney Po, amlodipine 5 mg PO DAILY apixaban (Eliquis) 5 mg PO BID ascorbic acid (vitamin C) 1 g PO DAILY [AUTOPAP 5-20 cm H2O with humidified AIR As directed] cholecalciferol (vitamin D3) 25 mcg PO DAILY coenzyme Q10 10 mg PO TID cranberry fruit concentrate (Azo Cranberry) 250 mg PO TID [eye support PO] ezetimibe (Zetia) 10 mg PO DAILY fluticasone propion-salmeterol 115-21 mcg/actuation (Advair HFA) 2 puffs inhalation Q12H 30 days fluticasone propionate 50 mcg/actuation 2 sprays intranasal DAILY 30 days glucosamine sulfate (Glucosamine) 500 mg PO DAILY grape seed extract 150 mg PO DAILY inhalational spacing device (Aerochamber MV spacer) As directed lisinopril 2.5 mg PO DAILY montelukast (Singulair) 10 mg PO BEDTIME 30 days [Natures Bounty PO] dbotwgli-sglj-ffslw-oreg-capry 100 mg-150 mg- 50 mg-150 mg caps PO ubidecarenone-omega 3-vit E 25-150-200 mg-mg-unit (Co Q-64-Glripqs E-Fish Oil) 1 cap PO DAILY Tobacco use date assessed: 08/27/25 Fall risk assessment: No Falls in past year Last assessed Fall Risk: 08/27/25 Dental Screening Dental Screen Date: 08/27/25 Did you have a dental visit in the last 12 months?: Yes Did you have a dental problem in the last 6 months where you did not have access to dental care?: No Was dental information given to patient?: Patient has dentist HPI JEANINE, DM, hypercholesterol HPI Details on CPAP [facility] Medical History Atrial fibrillation Cataract Cataract Vitreous detachment Wandering atrial pacemaker Type 2 diabetes mellitus with hyperglycemia Vitamin D deficiency Obesity (BMI 30-39.9) Asthma Hypertension Peripheral vascular disease Osteopenia Hypercholesterolemia Surgical History History of tonsillectomy Family History Mother Ovarian cancer Father No problems noted. Son No problems noted. Daughter Polymyositis Social History Housing: House Alcohol intake: never Patient Tobacco Use Status: Never used Tobacco Tobacco use type: Cigarette e-Cigarette/Vaping Use: Never Used Second Hand Smoke Exposure: Yes service: No Current occupational status: retired Cognitive needs: No Hearing needs: No Vision needs: Yes (reading glasses ) Questionnaire PHQ-9 Over the last 2 weeks, how often have you been bothered by any of the following problems? 1. Little interest or pleasure in doing things: not at all 2. Feeling down, depressed, or hopeless: not at all 3. Trouble falling or staying asleep, or sleeping too much: several days 4. Feeling tired or having little energy: nearly every day 5. Poor appetite or overeating: more than half the days 6. Feeling bad about yourself - or that you are a failure or have let yourself or your family down: not at all 7. Trouble concentrating on things, such as reading the newspaper or watching television: not at all 8. Moving or speaking so slowly that other people could have noticed. Or the opposite - being so fidgety or restless that you have been moving around a lot more than usual: not at all 9. Thoughts that you would be better off or of hurting yourself in some way: not at all Total score: 6 Source: Developed by Drs. Quiqeu Benjamin, Karishma Bangura, Ralf Mares and colleagues, with an educational olivier from [employer]. Thrive Questionnaire Date Thrive assessed: 05/11/25 I am a: Patient What is your living situation today?: I have a steady place to live Within the past 12 months, did the food you bought not last and you didn't have the money to get more?: Never true Within the past 12 months, did you worry whether your food would run out before you got money to buy more?: Never true Do you have trouble paying for medicines?: No Do you have trouble getting transportation to medical appointments?: No Do you have trouble paying your heating and electricity bill?: No Do you have trouble taking care of your child, family member or friend?: No Do you have trouble with day-to-day activities such as bathing, preparing meals, shopping, managing finances, etc.?: No Are you currently unemployed and looking for a job?: No Are you interested in more education?: No Please select the resources that you would like help with: None Currently or been in a relationship where the following occur: No concerns reported THRIVE Score: 0 AUDIT C Alcohol Use Questionnaire (AUDIT-C) 1. How often do you have a drink containing alcohol?: Never 3. How often do you have six or more drinks on one occasion?: Never Total Score: 0 LINDA-7 AMB Questionnaire LINDA-7 Date LINDA - 7 assessed: 01/04/25 Feeling nervous, anxious, or on edge: 0 = Not at all Not being able to stop or control worryin = Not at all Worrying too much about different things: 0 = Not at all Trouble relaxin = Not at all Being so restless that it is hard to sit still: 0 = Not at all Becoming easily annoyed or irritable: 0 = Not at all Feeling afraid as if something awful might happen: 0 = Not at all Total LINDA-7 score (0-4 normal; 5-9 mild; 10-14 moderate; 15-21 severe): 0 Source: Developed by Drs. Quique Benjamin, Karishma Bangura, Ralf Mares and colleagues, with an educational olivier from [employer]. Physical exam (Primary Care) Vital Signs: Last Vital Signs Temp 97.0 F 08/27/25 16:05 Pulse 59 08/27/25 16:05 BP 132/72 08/27/25 16:05 Pulse Ox 97 08/27/25 16:05 Oxygen Delivery Method Room Air 08/27/25 16:05 BMI result Body Mass Index 35.8 Tobacco/Smoking Status: Tobacco use Status Tobacco use date assessed 08/27/25 08/27/25 16:11 Patient Tobacco Use Status Never used Tobacco 08/27/25 16:04 Tobacco use type Cigarette 08/27/25 16:04 e-Cigarette/Vaping Use Never Used 08/27/25 16:04 PHQ-9: PHQ-9 Score PHQ-9: Total score 6 08/27/25 16:26 Thrive Assessment: Date of Thrive Assessment Date Thrive assessed 05/11/25 08/27/25 16:04 Currently or been in a relationship where the following occur: No concerns reported Const General: alert; No acute distress Eyes Conjunctivae: conjunctivae normal Resp Auscultation: clear to auscultation bilaterally Cardio Rate: regular rate Rhythm: regular rhythm GI Inspection: Yes normal to inspection Extrem General: Yes normal to inspection and No edema Results AMB Hemoglobin A1c AMB Hemoglobin A1c 6.4 % Last Edit by Aviva Shah CMA on 08/27/25 16:26 Immunizations pneumoc 20-georgette conj-dip cr(PF) 0.5 mL IM syringe Performing Provider: Cain Lyman MD Performing Location: [facility] Administered by: Makenzie Carson LPN on 08/27/25 16:50 Dose Route Admin Location Dispensed Lot Number Expiration Date [facility] Licensed And Certified Midwife 0.5 mL IM Left Deltoid 0.5 mL [id number] 07/24/26 [id number] [employer] Total Dispensed Waste 0.5 mL 0 % VIS Given Date VIS Provided VIS Publication Date 08/27/25 Single Vaccine 25 Eligibility Eligibility Date Funding Source Not VFC Eligible 08/27/25 Private Tenivac (PF) 5 Lf unit-2 Lf unit/0.5 mL intramuscular syringe Performing Provider: Cain Lyman MD Performing Location: [facility] Administered by: Makenzie Carson LPN on 08/27/25 16:50 Dose Route Admin Location Dispensed Lot Number Expiration Date [place] Licensed And Certified Midwife 0.5 mL IM Left Deltoid 0.5 mL [id number] 02/21/27 32454-557-58 [employer] Total Dispensed Waste 0.5 mL 0 % VIS Given Date VIS Provided VIS Publication Date 08/27/25 Single Vaccine 21 Eligibility Eligibility Date Funding Source Not [facility] Eligible 08/27/25 Private Results Reviewed Results Reviewed: Laboratory Last Values Hgb A1c (Clinic) 6.4 % (4.0-6.0) H 08/27/25 16:11 Coding Level of Care Code Est Pt Level 4 (78366) Complex EM visit Add On G2211 Diagnoses Type 2 diabetes mellitus with hyperglycemia, without long-term current use of insulin E11.65 Diabetes mellitus custodial insulin use: without custodial use Essential hypertension I10 Hypertension type: essential hypertension Atrial fibrillation I48.91 Hypercholesterolemia E78.00 Obesity (BMI 30-39.9) E66.9 Mild intermittent asthma without complication J45.20 Asthma severity: mild Asthma persistence: intermittent Asthma complication type: uncomplicated Obstructive sleep apnea G47.33 Assessment & Plan Assessment & Plan (1) Type 2 diabetes mellitus with hyperglycemia: Comment: Dr. Cai(retired), Dr. Clark, dr. Davies Code(s): E11.65 - Type 2 diabetes mellitus with hyperglycemia Category: Medical Qualifiers: Diabetes mellitus custodial insulin use: without custodial use Qualified Code(s): E11.65 - Type 2 diabetes mellitus with hyperglycemia Plan: Decrease the amount of carbohydrate intake, pasta, bread, rice and potatoes are all sugar and that is aside from all the sweet stuff, remember that fruits are good but they are Sweet also. Hemoglobin A1c goal of less than 7.0. Diet controlled (2) Hypertension: Code(s): I10 - Essential (primary) hypertension Category: Medical Qualifiers: Hypertension type: essential hypertension Qualified Code(s): I10 - Essential (primary) hypertension Plan: Continue with blood pressure medication. Decrease salt intake and exercise on lisinopril 2.5 mg once a day amlodipine 5 mg once a day (3) Atrial fibrillation: Comment: diagnosed 03/[address] Yuan cardiology Code(s): I48.91 - Unspecified atrial fibrillation Category: Medical Plan: On anticoagulation (4) Hypercholesterolemia: Code(s): E78.00 - Pure hypercholesterolemia, unspecified Category: Medical Plan: Avoid fried foods, chicken skin, eggs, butter margarine, pastries and meat. Be it pork or beef they have a lot of cholesterol LDL goal of less than 100 and triglyceride of less than 150. Patient declined statins on Zetia 10 mg once a day (5) Obesity (BMI 30-39.9): Code(s): E66.9 - Obesity, unspecified Category: Medical Plan: Diet and exercise (6) Asthma: Comment: PFT normal January 2019 Dr. Gilbert Code(s): J45.909 - Unspecified asthma, uncomplicated Category: Medical Qualifiers: Asthma severity: mild Asthma persistence: intermittent Asthma complication type: uncomplicated Qualified Code(s): J45.20 - Mild intermittent asthma, uncomplicated Plan: Patient is being followed up by Pulmonary Singulair started continuing with Advair and albuterol inhaler (7) Obstructive sleep apnea: Comment: Sleep study done January 16 2025 moderate degree of sleep apnea with an AHI of 16 with periodic limb movement Code(s): G47.33 - Obstructive sleep apnea (adult) (pediatric) Category: Medical Plan: Continue to use the CPAP more than 4 hours a night and benefits from this Plan History of Present Illness The patient is a 75-year-old obese female presenting for a follow-up visit for management of chronic conditions and evaluation of debilitating fatigue. She reports some days are worse than others, and the exhaustion can be so severe she cannot make it through the day, requiring her to rest by 5:00 PM. She has experienced weight gain over the last three years and often feels that eating will resolve her symptoms. The patient has a history of obstructive sleep apnea and is using a CPAP machine, which she likes. She initially felt better and had less fatigue after starting CPAP, but the exhaustion has since returned. A follow-up sleep study with the CPAP was performed in June, and results indicated that her condition was corrected. She has a history of asthma and moderate COPD, confirmed by a pulmonary function test in June, which showed an obstructive ventilatory defect with bronchodilator response and small airway disease. She follows with pulmonology and is prescribed Advair, Singulair, and an albuterol inhaler. She stopped taking Advair due to voice hoarseness but was recently given a spacer to try with it. She is taking a half dose of Singulair due to concerns about side effects. The patient has a history of atrial fibrillation since 2021 and is on Eliquis for anticoagulation due to an elevated CHADS-VASc score. Her last echocardiogram showed a normal ejection fraction of 55-60%. She also has a history of hypertension, hypercholesterolemia, diabetes mellitus, lumbar disc degeneration, and peripheral vascular disease. Her diabetes is diet-controlled, and her last hemoglobin A1c was 6.4. For hypercholesterolemia, her last LDL was 143; she has declined statin therapy and is taking Zetia. The last comprehensive blood work on file was from September of the previous year. Regarding health maintenance, her mammogram is due, last colonoscopy was in 2017, and last bone density scan was in 2018. She recently received a flu shot. Health Maintenance The patient's tetanus and pneumonia vaccinations are due. She agreed to receive both the Prevnar and Tdap shots during today's visit. A lab slip will be provided for comprehensive blood work to be done in about one month. The patient is due for a mammogram. Social History - Functional Status: Reports debilitating exhaustion that interferes with daily activities, often requiring a nap by 5 p.m. and making it difficult to complete tasks. - Nutrition: Reports feeling hungry often and believes eating will alleviate her symptoms. - Weight Management: Notes weight gain over the last three years. - Sleep: Sleep has improved with CPAP. She sometimes wakes at 3 AM after going to bed at midnight but ultimately gets 6-7 hours of sleep in total. She reports napping in the afternoon. Review of Systems - General: Reports debilitating exhaustion and fatigue. - Constitutional: Reports weight gain and feeling hungry often. - HEENT: Reports a history of a hoarse voice as a side effect from an inhaler. - Respiratory: Reports getting short of breath with exertion, such as climbing stairs ( huffing and puffing ). - Gastrointestinal: Reports normal bowel movements. - Genitourinary: Reports urinary frequency, including at night. Physical Exam - Vitals: Oxygen saturation is normal. - Lungs: Clear to auscultation with regular breathing. Results - Labs (September, last year): Blood count was normal. Blood sugar was 116. Kidney function was normal. Hemoglobin A1c was 6.4. LDL cholesterol was 143. - Pulmonary Function Test (June): Showed an obstructive ventilatory defect consistent with moderate COPD, with a bronchodilator response and small airway disease secondary to asthma. - Echocardiogram (last year): Showed an ejection fraction of 55-60%. - Sleep Study with CPAP (June): Follow-up study showed that sleep apnea was corrected with the device. Plan Patient was informed and verbally consented to the use of an ambient scribe for clinic note documentation during this visit. 1. Fatigue The etiology of the patient's debilitating fatigue is unclear. The last comprehensive blood work was from a year ago, so updated labs will be ordered to investigate further. Other potential contributing factors discussed include anxiety or side effects from blood thinners. 2. Asthma / Chronic Obstructive Pulmonary Disease The patient will continue to follow up with her licensing engineer. She is encouraged to retry the Advair inhaler using the new spacer to mitigate the side effect of hoarseness. She will continue taking Singulair and have her albuterol inhaler for rescue use. 3. Obstructive Sleep Apnea The patient will continue using her CPAP for more than 4 hours nightly, as she reports liking the device. Despite a recent follow-up sleep study showing the CPAP is effective, her fatigue has recurred, so she should follow up with pulmonology to re-assess. 4. Atrial Fibrillation Anticoagulation will be continued with Eliquis. 5. Hypercholesterolemia The patient will continue taking Zetia 10 mg once daily, as she has previously declined statin therapy. The target LDL goal is less than 100. Diet and exercise were also recommended. 6. Type 2 Diabetes Mellitus The condition is managed with diet, with a hemoglobin A1c goal of less than 7.0%. An updated A1c will be included in the upcoming blood work. 7. Essential Hypertension The patient will continue her current regimen of lisinopril 2.5 mg once a day and amlodipine 5 mg once a day. Discussion Notes I discussed with the patient that her primary complaint is debilitating fatigue. I explained that to investigate the cause, we need to obtain updated blood work, as her last comprehensive labs were a year old. I mentioned that if all tests come back negative, her fatigue could be related to anxiety. We reviewed her asthma medications, and I encouraged her to retry Advair with the provided spacer, as this may prevent the hoarseness she experienced previously. I also reviewed her recent sleep study results, which showed her sleep apnea was well-managed with CPAP, and advised her to continue using it. We discussed her immunization status, noting she is due for both a tetanus shot and a pneumonia shot. I explained the potential for arm soreness as a side effect, and she consented to receiving both vaccinations during this visit. Patient Instructions - Continue all your current medications for blood pressure, cholesterol, and atrial fibrillation (blood thinner). - Get blood work done in about one month; you will receive the order for this when you check out. - You are due for a mammogram. - You will receive a pneumonia shot and a tetanus shot today. You may experience some soreness in your arm. - Continue to use your CPAP machine every night for at least 4 hours. - Try using your Advair asthma inhaler again with the spacer device to help prevent your voice from becoming hoarse. - Follow up with your lung specialist (licensing engineer) as planned. Orders: Orders AMB Hemoglobin A1c Today Z13.9 - Encounter for screening, unspecified Td Immunization Today Z23 - Encounter for immunization Pneumococcal 20 Immunization Today Z23 - Encounter for immunization
[2025-08-27 16:05] VITALS: BP 132/72; PULSE 59; TEMP 36.1; O2SAT 97; BMI 35.8
--- OUTSIDE RECORDS SUMMARY | 2025-08-27 17:05 | XMS_ITS | Patient Health Record ---
[facility] Address [address] [place] [address] Care Team Providers Care Farm Management Supervisor Name Role Phone Cain Lyman Primary Care Provider Vamsi Jones Unavailable [phone] Allergies Allergen (clinical drug ingredient) Drug/Non Drug [...] Polyneuropathy due to type 2 diabetes mellitus (022197142) Type 2 diabetes mellitus with diabetic polyneuropathy (E11.42) Active confirmed Plan Of Treatment Pending Test Test Name Order Date Hemoglobin A1c 03/04/2015 Hemoglobin A1c 11/07/2015 51408-SJPVLDL NAIL, 6 OR MORE 01/15/2014 33993-NVOOIPS NAIL, 6 OR MORE 03/04/2015 10624-CDTBUWV NAIL, 6 OR MORE 11/07/2015 60580-GVWYRLX NAIL, 6 OR MORE 03/12/2016 35813-Wruexadp Plate 01/15/2014 16185-Nchccnti Plate 11/07/2015 69882-RNPM SKIN LESIONS, OVER 4 11/07/19 16 62607-XEJT SKIN LESIONS, OVER 4 03/04/20 15 47337-LKYD SKIN LESIONS, OVER 4 03/12/20 16 61281-PVYL SKIN LESIONS, OVER 4 01/16/20 14 Insurance Providers Payer Name Payer Address Payer Phone Subscriber Number Group Number Insured Name Patient Relationship to Insured Coverage Start Date Coverage End Date [employer] [place] [employer] [address] [place] [address] [id number] Bev Shah Self - patient is the insured Medical (General) History Medical History History ICD Code type II diabetes Hypercholesterolemia Back,Hip,and Knee pain High blood pressure Sciatica Measles Mumps Chicken pox COPD Surgical History Surgery Date(Month/Year) tonsillectomy 1952
--- OUTSIDE RECORDS SUMMARY | 2025-08-27 17:05 | XMS_ITS | Patient Health Record ---
Author Organization [facility] Address [address] [place] [address] Care Team Providers Care Anthropology Department Chair Name Role Phone Cain Lyman MD Primary Care Provider Quique Medina [phone] Allergies Allergen (clinical drug ingredient) Drug/Non Drug [...] Problem Status W/U Status Risk Notes Problem Screening for malignant neoplasm of colon (274447595) Encounter for screening for malignant neoplasm of colon (Z12.11) Active confirmed Problem Screening for malignant neoplasm of rectum (936405689) Encounter for screening for malignant neoplasm of rectum (Z12.12) Active confirmed Problem Preprocedural examination (365714804068681) Preprocedural examination (Z01.818) Active confirmed Problem Long-term current use of antiplatelet drug (262564396840298) Long-term use of aspirin therapy (Z79.82) Active confirmed Plan Of Treatment Future Test Test Name Order Date COLONOSCOPY 06/04/2016 Insurance Providers Payer Name Payer Address Payer Phone Subscriber Number Group Number Insured Name Patient Relationship to Insured Coverage Start Date Coverage End Date [facility] [address] [place] [phone] [id number] CHASE DYSON Self - patient is the insured Medical (General) History Medical History History ICD Code Screening colonocopy 03-18-2006---neg. ex cept for internal hemorrhoids Hypertension Mild COPD Hypercholesterolemia Denies NM,DM,CVA,renal disease Seasonal allergies/postnasal drip Surgical History Surgery Date(Month/Year) tonsillectomy
== END 2025-08-27 16:51 | disposition home or self-care (01) ==
LOC: HO.HMCH 16:01
PROVIDERS: PCP Internal Medicine; Visit Provider Internal Medicine
DX: E11.65 Type 2 diabetes mellitus with hyperglycemia (principal); I48.91 Unspecified atrial fibrillation; E66.9 Obesity, unspecified; Z68.35 Body mass index [BMI] 35.0-35.9, adult; I10 Essential (primary) hypertension; E78.00 Pure hypercholesterolemia, unspecified; J45.20 Mild intermittent asthma, uncomplicated; G47.33 Obstructive sleep apnea (adult) (pediatric); Z23 Encounter for immunization

== ENCOUNTER → 2025-08-27 16:01 | Outpatient (BNVA) | payer MEDICARE, SELFPAY | PROVIDERS: PCP Internal Medicine; Visit Provider Internal Medicine | DX: E11.65 Type 2 diabetes mellitus with hyperglycemia (principal); I10 Essential (primary) hypertension; I48.91 Unspecified atrial fibrillation; E78.00 Pure hypercholesterolemia, unspecified; E66.9 Obesity, unspecified; J45.20 Mild intermittent asthma, uncomplicated; G47.33 Obstructive sleep apnea (adult) (pediatric); R53.83 Other fatigue; J44.9 Chronic obstructive pulmonary disease, unspecified; Z23 Encounter for immunization; Z99.89 Dependence on other enabling machines and devices | CPT/HCPCS: 83036; 90471; 90472; 90677; 90714; 96127; 99212 ==

== ENCOUNTER 2025-10-16 16:18 | Outpatient (AMB) | payer MEDICARE, SELFPAY ==
[2025-10-16 16:28] VITALS: BP 142/54; PULSE 58; RESP 16; TEMP 36.4; O2SAT 96; BMI 36.0
--- NOTE | 2025-10-16 16:28 | A.OFFPC_ITS ---
Vital Signs 10/16/25 16:28 10/16/25 17:15 Height 5 ft 3 in Weight 203 lb 2 oz BMI 36.0 BP 142/54 H 122/60 Blood Pressure Location Lt brachial Lt brachial Position Sitting Sitting Respiration 16 Pulse 58 Pulse Source Pulse Oximeter Temp 97.5 F Temp Source Temporal Artery Scan Pulse Oximetry (%) 96 Oxygen Delivery Method Room Air Intake Visit Reasons: PE - see comments Customer Specialist Required: No Accompanied by: Self / Same As Patient Allergies levofloxacin (Levaquin) Allergy (Unknown, Verified 10/16/25 16:28) Rash shrimps Allergy (Severe, Uncoded 10/16/25 16:28) Hives Clindamycin HCl Allergy (Unknown, Uncoded 10/16/25 16:28) Rash Medication List - Last Reconciled 10/16/25 by Cain Carney PoMD amlodipine 5 mg PO DAILY apixaban (Eliquis) 5 mg PO BID ascorbic acid (vitamin C) 1 g PO DAILY [AUTOPAP 5-20 cm H2O with humidified AIR As directed] cholecalciferol (vitamin D3) 25 mcg PO DAILY coenzyme Q10 10 mg PO TID cranberry fruit concentrate (Azo Cranberry) 250 mg PO TID [eye support PO] ezetimibe (Zetia) 10 mg PO DAILY fluticasone propion-salmeterol 115-21 mcg/actuation (Advair HFA) 2 puffs inhalation Q12H 30 days glucosamine sulfate (Glucosamine) 500 mg PO DAILY grape seed extract 150 mg PO DAILY inhalational spacing device (Aerochamber MV spacer) As directed lisinopril 2.5 mg PO DAILY montelukast (Singulair) 5 mg PO BEDTIME [Natures Bounty PO] edizqyvv-jpyj-rzdab-oreg-capry 100 mg-150 mg- 50 mg-150 mg caps PO ubidecarenone-omega 3-vit E 25-150-200 mg-mg-unit (Co D-94-[id number] E-Fish Oil) 1 cap PO DAILY Tobacco use date assessed: 10/16/25 Fall risk assessment: No Falls in past year Last assessed Fall Risk: 10/16/25 Dental Screening Dental Screen Date: 10/16/25 Did you have a dental visit in the last 12 months?: Yes Did you have a dental problem in the last 6 months where you did not have access to dental care?: No Was dental information given to patient?: Patient has dentist HPI PE - see comments HPI Details dizzy, did get hearing test, gerd HPI Comments History of Present Illness Details History of Present Illness The patient is a 75-year-old obese female presenting for a complete physical. She has a past medical history of hypertension, hypercholesterolemia, type 2 diabetes mellitus, asthma, atrial fibrillation, lumbar degenerative disc disease, osteopenia, obstructive sleep apnea, and right carpal tunnel syndrome status post-release in April 2025. Her diabetes mellitus is diet-controlled, and her last hemoglobin A1c in August 2025 was 6.4%. Her atrial fibrillation is managed with Eliquis. Hypertension is treated with amlodipine 5 mg and lisinopril 2.5 mg daily. Hypercholesterolemia is managed with Zetia 10 mg daily. For her respiratory conditions, she follows with a glaciologist. A PFT in June showed moderate COPD. She is prescribed Advair, albuterol, and montelukast. She reports inconsistent use of Advair but notes feeling better with regular use, though it causes hoarseness. Her obstructive sleep apnea was diagnosed with an AHI of 16 and she uses her CPAP machine regularly with be brynit. For health maintenance, her last bone density scan was in 2017 showing osteopenia. Her last colonoscopy was in 2016. She reports annual mammograms, with the last record noted as November 2023. The patient reports increased fatigue, weight gain, and occasional dizziness. She also notes worsening hearing, intermittent dysphagia, and increased heartburn lately. She experiences nocturia and urinary incontinence, for which she wears a pad. She denies alcohol use and has never smoked, but reports a history of secondhand smoke exposure. She has known allergies to Levaquin and clindamycin. Health Maintenance - Laboratory screening: The patient repo rts she did not complete her recent blood work; a new order will be provided. - Her last hemoglobin A1c was 6.4% in No vember. - Renal function is to be monitored twic e yearly due to Eliquis use. - Cancer screening: Her last colonoscopy was in 2016 and she is due for another. - She reports having annual mammograms. - A take-home stool card for occult bloo d testing was provided. - Bone health: Her last bone density sca n was in 2017; a repeat scan will be ordered. - Vaccinations: She has received a flu s hot. - She is up to date on Tdap and pneumoni a vaccinations. - The shingles vaccine was discussed and recommended. - Diet and exercise: Discussed with the patient, who reports recent weight gain. Social History - Substance use: The patient denies any alcohol or tobacco use. - She reports a history of secondhand sm jayden exposure from her and son. - Functional status: Reports increased f atigue and difficulty walking, noting she gets tired walking from the car to the grocery store. - She states that leaning on a grocery c art helps her ambulate more easily. - Nutrition: Reports trying to eat healt hy and avoid sugar, but acknowledges dietary indiscretions during holidays. - She has experienced recent weight gain . - Family: She mentioned her daughter, joaquín lundberg, and [id number] during the conversation. Results - Labs: Hemoglobin A1c in August was 6 .4%. - Tests and Diagnostics: Pulmonary Funct ion Test in June showed results consistent with moderate COPD. - Sleep study showed moderate obstructiv e sleep apnea with an AHI of 16. - Last bone density scan in 2017 reveale d osteopenia. [facility] Medical History Atrial fibrillation Cataract Cataract Vitreous detachment Wandering atrial pacemaker Type 2 diabetes mellitus with hyperglycemia Vitamin D deficiency Obesity (BMI 30-39.9) Asthma Hypertension Peripheral vascular disease Osteopenia Hypercholesterolemia Surgical History History of tonsillectomy Family History Mother Ovarian cancer Father No problems noted. Son No problems noted. Daughter Polymyositis Social History Housing: House Alcohol intake: never Patient Tobacco Use Status: Never used Tobacco Tobacco use type: Cigarette e-Cigarette/Vaping Use: Never Used Second Hand Smoke Exposure: Yes service: No Current occupational status: retired Cognitive needs: No Hearing needs: No Vision needs: Yes (reading glasses ) Questionnaire PHQ-9 Over the last 2 weeks, how often have you been bothered by any of the following problems? 1. Little interest or pleasure in doing things: not at all 2. Feeling down, depressed, or hopeless: not at all 3. Trouble falling or staying asleep, or sleeping too much: several days 4. Feeling tired or having little energy: nearly every day 5. Poor appetite or overeating: more than half the days 6. Feeling bad about yourself - or that you are a failure or have let yourself or your family down: not at all 7. Trouble concentrating on things, such as reading the newspaper or watching television: not at all 8. Moving or speaking so slowly that other people could have noticed. Or the opposite - being so fidgety or restless that you have been moving around a lot more than usual: not at all 9. Thoughts that you would be better off or of hurting yourself in some way: not at all Total score: 6 Source: Developed by Drs. Quique Benjamin, Karishma Bangura, Ralf Mares and colleagues, with an educational olivier from [employer]. Thrive Questionnaire Date Thrive assessed: 10/16/25 I am a: Patient What is your living situation today?: I have a steady place to live Within the past 12 months, did the food you bought not last and you didn't have the money to get more?: Never true Within the past 12 months, did you worry whether your food would run out before you got money to buy more?: Never true Do you have trouble paying for medicines?: No Do you have trouble getting transportation to medical appointments?: No Do you have trouble paying your heating and electricity bill?: No Do you have trouble taking care of your child, family member or friend?: No Do you have trouble with day-to-day activities such as bathing, preparing meals, shopping, managing finances, etc.?: No Are you currently unemployed and looking for a job?: No Are you interested in more education?: No Currently or been in a relationship where the following occur: No concerns reported THRIVE Score: 0 AUDIT C Alcohol Use Questionnaire (AUDIT-C) 1. How often do you have a drink containing alcohol?: Never 3. How often do you have six or more drinks on one occasion?: Never Total Score: 0 LINDA-7 AMB Questionnaire LINDA-7 Date LINDA - 7 assessed: 10/16/25 Feeling nervous, anxious, or on edge: 0 = Not at all Not being able to stop or control worryin = Not at all Worrying too much about different things: 0 = Not at all Trouble relaxin = Not at all Being so restless that it is hard to sit still: 0 = Not at all Becoming easily annoyed or irritable: 0 = Not at all Feeling afraid as if something awful might happen: 0 = Not at all Total LINDA-7 score (0-4 normal; 5-9 mild; 10-14 moderate; 15-21 severe): 0 Source: Developed by Drs. Quique Benjamin, Karishma Bangura, Ralf Mares and colleagues, with an educational olivier from [employer]. Review of Systems Narrative Review of Systems - Constitutional: Reports fatigue and weight gain. - Denies fevers. - Eyes: Reports a retinal problem where vitreous gel pulls on the retina causing distorted vision. - Denies retinal tear. - ENT: Reports worsening hearing loss and hoarseness with her inhaler use. - Reports intermittent dysphagia, which she attributes to allergies. - Cardiovascular: Reports occasional chest pressure, which has improved since starting CPAP. - Denies passing out. - Respiratory: Denies waking up short of breath while using her CPAP. - Gastrointestinal: Reports intermittent heartburn that has been occurring more frequently lately. - Reports normal bowel movements. - Denies significant nausea or vomiting. - Genitourinary: Reports nocturia (wakes 2 times per night) and urinary incontinence requiring a pad. - Musculoskeletal: Reports soreness in bones and pain in her knees, hips, ankles, and feet. - Neurological: Reports occasional dizziness when walking. - Reports numbness in her feet. - Allergic/Immunologic: Reports allergies, possibly to dogs. Const Denies poor appetite and Denies weakness Eyes Denies no additional complaints ENT Reports Normal hearing present, Denies dizziness, Denies nasal congestion, Denies tinnitus and Denies sore throat Card Denies chest pain, Denies syncope, Denies rapid heart rate and Denies dyspnea Resp Denies cough and Denies dyspnea GI Denies change in stool character, Reports constipation, Denies diarrhea, Denies nausea and Denies vomiting Denies urinary frequency, Denies difficulty voiding and Denies dysuria Neuro Reports Normal hearing present, Denies confusion, Denies dizziness, Denies syncope and Denies weakness Psych Denies confusion Physical exam (Primary Care) Vital Signs: Last Vital Signs Temp 97.5 F 10/16/25 16:28 Pulse 58 10/16/25 16:28 Resp 16 10/16/25 16:28 BP 122/60 10/16/25 17:15 Pulse Ox 96 10/16/25 16:28 Oxygen Delivery Method Room Air 10/16/25 16:28 BMI result Body Mass Index 36.0 Tobacco/Smoking Status: Tobacco use Status Tobacco use date assessed 10/16/25 10/16/25 16:32 Patient Tobacco Use Status Never used Tobacco 10/16/25 16:32 Tobacco use type Cigarette 10/16/25 16:32 e-Cigarette/Vaping Use Never Used 10/16/25 16:32 PHQ-9: PHQ-9 Score PHQ-9: Total score 6 10/16/25 17:09 Thrive Assessment: Date of Thrive Assessment Date Thrive assessed 10/16/25 10/16/25 16:32 Currently or been in a relationship where the following occur: No concerns reported Narrative Physical Exam General: Cooperative, healthy appearing, comfortable, no acute distress and well developed Orientation: Patient oriented x3 Limitations: No limitations Head: Normal to inspection Ears: Hearing slightly diminished, borderline for hearing aid Nose: Normal external nose present Face and sinus: Normal facial exam Eyes: Appearance normal, both eyes and all related structures; history of cataract surgery on one eye, retina issue causing dizziness Neck: Normal visual inspection and Yes full ROM Respiratory: Normal respiratory effort and able to speak in complete sentences. Clear to auscultation bilaterally Cardiovascular: Regular rate and rhythm. Normal S1 and S2 GI: Normal to inspection. Soft to palpation and nontender Skin: No rashes or lesions noted; presence of spider veins, pending liver ultrasound Neuro: Patient oriented x3 Extremities: Normal to inspection; slight numbness in feet, history of right carpal tunnel release Const General: No confusion Orientation/consciousness: No confusion HENMT Head: Yes normocephalic Ears: external ears normal and TM's normal bilaterally Face and sinus: Yes normal facial exam Mouth: moist mucous membranes Throat: Yes tonsils normal Eyes Conjunctivae: conjunctivae normal Pupils: Equal, round and reactive pupils present and Pupil accommodation reflex normal Direct Ophthalmoscopy: normal light reflex Neck Neck: No lymphadenopathy Thyroid: Thyroid normal Chest Chest palpation & inspection: normal inspection of the chest Resp Effort & Inspection: normal respiratory effort and no audible wheezes Auscultation: clear to auscultation bilaterally, no crackles, no wheezes and lung sounds not diminished Cardio Rate: regular rate Rhythm: regular rhythm Peripheral pulses: radial pulses present and dorsalis pedis present GI Other: pedal pulse and pin prick good declined Palpation (GI): no masses Auscultation: normal bowel sounds and normoactive bowel sounds Rectal Exam - Female: deferred Skin General skin exam: no rashes or lesions noted Rashes: no rashes Neuro General: No confusion Cranial nerves: Yes Equal, round and reactive pupils present and Yes Normal hearing present Cognition (Neuro): normal cognition Gait exam (Neuro): Normal gait present Motor exam (neuro): 5/5 motor strength present throughout Deep tendon reflexes (DTR's): Right brachioradialis reflex intensity grade: 2+, Left brachioradialis reflex intensity grade: 2+, Right patellar reflex intensity grade: 2+ and Left patellar reflex intensity grade: 2+ Extrem General: No edema Coding Level of Care Code Est Pt Prev Care >65y(79059) Diagnoses Annual physical exam Z00.00 Type 2 diabetes mellitus with hyperglycemia, without long-term current use of insulin E11.65 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: without alf use Atrial fibrillation I48.91 Essential hypertension I10 Hypertension type: essential hypertension Hypercholesterolemia E78.00 Osteopenia of multiple sites M85.89 Osteopenia location: multiple sites Obesity (BMI 30-39.9) E66.9 Mild intermittent asthma without complication J45.20 Asthma complication type: uncomplicated Asthma persistence: intermittent Asthma severity: mild Obstructive sleep apnea G47.33 Breast cancer screening by mammogram Z12.31 Spider angioma I78.1 Assessment & Plan Assessment & Plan (1) Annual physical exam: Code(s): Z00.00 - Encounter for general adult medical examination without abnormal findings Category: Medical Plan: Patient is advised to eat healthy, keep well hydrated, keep active and have adequate sleep. (2) Type 2 diabetes mellitus with hyperglycemia: Comment: Dr. Cai(retired), Dr. Clark, dr. Davies Code(s): E11.65 - Type 2 diabetes mellitus with hyperglycemia Category: Medical Qualifiers: 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: without ferry terminal supervisor use Qualified Code(s): E11.65 - Type 2 diabetes mellitus with hyperglycemia Plan: Decrease the amount of carbohydrate intake, pasta, bread, rice and potatoes are all sugar and that is aside from all the sweet stuff, remember that fruits are good but they are Sweet also. August 2025 hemoglobin A1c under control patient is diet controlled (3) Atrial fibrillation: Comment: diagnosed 03/[address] Yuan cardiology Code(s): I48.91 - Unspecified atrial fibrillation Category: Medical Plan: Continue with anticoagulation Eliquis 5 mg twice a day renal function test twice a day year (4) Hypertension: Code(s): I10 - Essential (primary) hypertension Category: Medical Qualifiers: Hypertension type: essential hypertension Qualified Code(s): I10 - Essential (primary) hypertension Plan: Continue with blood pressure medication. Decrease salt intake and exercise takes amlodipine 5 mg once a day lisinopril 2.5 mg once a day (5) Hypercholesterolemia: Code(s): E78.00 - Pure hypercholesterolemia, unspecified Category: Medical Plan: Avoid fried foods, chicken skin, eggs, butter margarine, pastries and meat. Be it pork or beef they have a lot of cholesterol LDL goal of less than 100 and triglyceride of less than 150 on Zetia 10 mg once a day (6) Osteopenia: Code(s): M85.80 - Other specified disorders of bone density and structure, unspecified site Category: Medical Qualifiers: Osteopenia location: multiple sites Qualified Code(s): M85.89 - Other specified disorders of bone density and structure, multiple sites Plan: Discussed about calcium and vitamin-D and repeat bone density (7) Obesity (BMI 30-39.9): Code(s): E66.9 - Obesity, unspecified Category: Medical Plan: Diet and exercise (8) Asthma: Comment: PFT normal January 2019 Dr. Gilbert Code(s): J45.909 - Unspecified asthma, uncomplicated Category: Medical Qualifiers: Asthma complication type: uncomplicated Asthma persistence: intermittent Asthma severity: mild Qualified Code(s): J45.20 - Mild intermittent asthma, uncomplicated Plan: On albuterol inhaler and Advair patient was started on montelukast as per Pulmonary (9) Obstructive sleep apnea: Comment: Sleep study done January 16 2025 moderate degree of sleep apnea with an AHI of 16 with periodic limb movement Code(s): G47.33 - Obstructive sleep apnea (adult) (pediatric) Category: Medical Plan: Continue with CPAP use more than 4 hours a night and benefits from this. (10) Breast cancer screening by mammogram: Code(s): Z12.31 - Encounter for screening mammogram for malignant neoplasm of breast Category: Medical (11) Spider angioma: Code(s): I78.1 - Nevus, non-neoplastic Category: Medical Plan Plan Patient was informed and verbally consented to the use of an ambient scribe for clinic note documentation during this visit. 1. Annual Wellness Visit / Preventative Care The patient forgot to get her blood work done prior to the visit, so a new order was provided. An order for a repeat bone density scan will be placed, as her last one was in 2018. The patient will continue with annual mammograms and follow up for her due colonoscopy. A stool card was provided to screen for occult blood. Vaccination status was reviewed; the patient is up to date on flu, Tdap, and pneumonia shots, and the shingles vaccine was recommended. Diet and exercise for weight management were discussed. 2. Spider Angiomata Due to the presence of spider angiomata on physical exam, a liver ultrasound w ill be ordered to assess for underlying liver disease. 3. Asthma And Copd The patient reports sporadic use of her Advair inhaler. She was encouraged to use it regularly to better control her symptoms, including fatigue. She experiences hoarseness with Advair, and an alternative inhaler may be considered if this persists upon discussion with her glaciologist. She will continue montelukast and her albuterol inhaler. 4. Fatigue The patient's complaint of fatigue will be evaluated with pending blood work. This may also be related to poor asthma control. 5. Heartburn The patient reports an increase in heartburn symptoms. It was recommended that she discuss an upper endoscopy with her pump runner at the time of her next colonoscopy, and to see them sooner if symptoms are continuous. 6. Chronic Condition Management The patient will continue her current medications for chronic conditions, including Eliquis 5 mg twice a day for atrial fibrillation, amlodipine 5 mg and lisinopril 2.5 mg for hypertension, and Zetia 10 mg for hypercholesterolemia. Her diet-controlled diabetes remains well-managed. She will continue CPAP therapy for obstructive sleep apnea. Discussion Notes I reviewed the patient's extensive medical history and discussed the plan for her annual wellness visit. We addressed outstanding health maintenance items, and I provided new orders for blood work and a bone density scan, as she had forgotten to complete these. I discussed her complaint of fatigue, explaining that it may be related to her asthma and that using her Advair inhaler more consistently should help. We also discussed the side effect of hoarseness and the possibility of trying a different inhaler if needed. I informed her that the pending blood work would also help in evaluating her fatigue. Upon finding spider angiomata during the exam, I explained to the patient that these can sometimes be a sign of a liver issue and that I was ordering a liver ultrasound to investigate further. I provided a stool card and instructions for colorectal cancer screening. We also reviewed her need for regular renal function monitoring due to her use of Eliquis. I reviewed her vaccination status and recommended the shingles vaccine, explaining it is a two-dose series available at the pharmacy that can prevent a very painful condition. The patient confirmed she has adequate prescription refills at this time. Patient Instructions - Please go to the lab to complete the blood work that was ordered for you. - We have ordered a bone density scan to check on the health of your bones. - We have also ordered an ultrasound of your liver. - The facility will contact you to schedule both the bone scan and the ultrasound. - Use your Advair inhaler regularly every day to help with your breathing and ti redness. - Let us know if your voice continues to be hoarse from the inhaler. - Continue all your current medications for blood pressure, cholesterol, and your blood thinner (Eliquis) as prescribed. - Follow up to schedule your colonoscopy, as you are due for one. - Complete the take-home stool test card we gave you and return it to the office. - Consider getting the shingles vaccine, which is available at your pharmacy. - If your heartburn continues to be a problem, please contact your stomach doctor. - Continue your efforts with a healthy diet and exercise. Orders: Orders XR DEXA axial skeleton Today Cain Lyman MD I78.1 - Nevus, non-neoplastic, M81.0 - Age-related osteoporosis without current pathological fracture US abdomen complete Today Cain Lyman MD I78.1 - Nevus, non-neoplastic, R79.89 - Other specified abnormal findings of blood chemistry Magnesium Today Cain Lyman MD I78.1 - Nevus, non-neoplastic Medications: Changed From montelukast (Singulair) 10 mg PO BEDTIME 30 days 30 tabs 11RF J45.909 - Unspecified asthma, uncomplicated To montelukast (Singulair) 5 mg PO BEDTIME J45.909 - Unspecified asthma, uncomplicated Marco Antonio Head MD
--- OUTSIDE RECORDS SUMMARY | 2025-10-16 16:58 | XMS_ITS | Patient Health Record ---
Author Organization [facility] Address [address] [place] [id number] Care Team Providers Care Echo Tech Name Role Phone Cain Lyman MD Primary Care Provider Quique Medina [phone] Allergies Allergen (clinical drug ingredient) Drug/Non Drug Allergy documented on EMR Reaction Allergy Type Onset Date Status Shrimp shrimp (uncoded) Unknown Allergy Act vicky clindamycin Clindamycin HCl Unknown Drug Allergy Active Levaquin Unknown Drug Allergy Active Reason For Referral No Information Medications Medication SIG (Take, Route, Fr equency, Duration) Notes Start Date End Date Status Multivitamin Active Beta Carotene Active Magnesium Active Mirena Active amLODIPine Besylate Active ProAir HFA Active Lisinopril Active Glucosamine Active Aspirin Active Vitamin C Active Flaxseed Oil Active Calcium Active Fish Oil Active Co Q 10 Active Social History Social History Additional Details Category Social Info Options Details Miscellaneous: Marital status: 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 Section Notes: Nonsmoker; no sig alcohol Problems Problem Type SNOMED Code ICD Code Onset Dates Problem Status W/U Status Risk Notes Problem Screening for malignant neoplasm of colon (941473976) Encounter for screening for malignant neoplasm of colon (Z12.11) Active confirmed Problem Screening for malignant neoplasm of rectum (157634630) Encounter for screening for malignant neoplasm of rectum (Z12.12) Active confirmed Problem Preprocedural examination (929801760710644) Preprocedural examination (Z01.818) Active confirmed Problem Long-term current use of antiplatelet drug (366919514533095) Long-term use of aspirin therapy (Z79.82) Active confirmed Plan Of Treatment Future Test Test Name Order Date COLONOSCOPY 06/04/2016 Insurance Providers Payer Name Payer Address Payer Phone Subscriber Number Group Number Insured Name Patient Relationship to Insured Coverage Start Date Coverage End Date [facility] [address] [place] [phone] [id number] CHASE DYSON Self - patient is the insured Medical (General) History Medical History History ICD Code Screening colonocopy 03-18-2006---neg. ex cept for internal hemorrhoids Hypertension Mild COPD Hypercholesterolemia Denies CA,DM,CVA,renal disease Seasonal allergies/postnasal drip Surgical History Surgery Date(Month/Year) tonsillectomy
--- OUTSIDE RECORDS SUMMARY | 2025-10-16 16:58 | XMS_ITS | Patient Health Record ---
Author Organization [facility] Address [address] [place] [address] Care Team Providers Care Assisted Living Manager Name Role Phone Cain Lyman Primary Care Provider Vamsi Jones Unavailable [phone] Allergies Allergen (clinical drug ingredient) Drug/Non Drug [...] Polyneuropathy due to type 2 diabetes mellitus (351643845) Type 2 diabetes mellitus with diabetic polyneuropathy (E11.42) Active confirmed Plan Of Treatment Pending Test Test Name Order Date Hemoglobin A1c 03/04/2015 Hemoglobin A1c 11/07/2015 [id number] NAIL, 6 OR MORE 01/15/2014 [id number] NAIL, 6 OR MORE 03/04/2015 [id number] NAIL, 6 OR MORE 11/07/2015 [id number] NAIL, 6 OR MORE 03/12/2016 [id number] Plate 01/15/2014 [id number] Plate 11/07/2015 [id number] SKIN LESIONS, OVER 4 11/07/19 16 [id number] SKIN LESIONS, OVER 4 03/04/20 15 [id number] SKIN LESIONS, OVER 4 03/12/20 16 [id number] SKIN LESIONS, OVER 4 01/16/20 14 Insurance Providers Payer Name Payer Address Payer Phone Subscriber Number Group Number Insured Name Patient Relationship to Insured Coverage Start Date Coverage End Date [employer] [place] [employer]age [address] [place] [address] [id number] Bev Shah Self - patient is the insured Medical (General) History Medical History History ICD Code type II diabetes Hypercholesterolemia Back,Hip,and Knee pain High blood pressure Sciatica Measles Mumps Chicken pox COPD Surgical History Surgery Date(Month/Year) tonsillectomy 1952
--- OUTSIDE RECORDS SUMMARY | 2025-10-16 16:58 | XMS_ITS | Clinical Summary ---
Author Organization [facility] Address [address] [facility] [place] [address] Phone Care Team Providers Care Auto Body Straightener Name Role Phone Cain Lyman MD Primary Care Provider [phone] Allergies Active Allergy Reactions Criticality Noted Date [...] (ZINC-15 ORAL) Take by mouth daily. Active lisinopriL (PRINIVIL,ZESTRI L) 2.5 mg tablet TAKE 1 TABLET BY MOUTH DAILY 90 tablet 3 5 Active fluticasone propionate (FLONASE) 50 mcg/actuation nasal spray Administer 1 spray into each nostril 1 (one) time each day. Shake gently. Before first use, prime pump. After use, clean tip and replace cap. Active amLODIPine (NORVASC) 5 mg tablet Take 1 tablet (5 mg total) by mouth 1 (one) time each day. 90 tablet 1 5 Active Eliquis 5 mg tablet TAKE 1 TABLET BY MOUTH TWICE DAILY 180 tablet 1 5 Active Active Problems Problem Noted Date Diagnosed [...] Continues to be anticoagulated on warfarin. Her [id number] score is 4 for hypertension, diabetes, age [...] (HCC) Diabetes mellitus type 2, un complicated (CMS/HCC V24, CMS/HCC V28) 12/11/2016 DX:Diabetes mellitus type 2 , [...] on file Sexual Orientation Not on file Last Filed Vital Signs Vital Sign Reading [...] Description 10/29/2025 2:40 PM EST Office Visit [facility] [address] [place] [phone] Mandy Lopez NP [address] [place] [address] [address] [place] [phone] Health Maintenance Due Date Last Done Comments [...] [employer] [place] MED[employer] ADV[employer]AGE Care Teams Auto Body Straightener Relationship Specialty Start Date End Date Cain Lyman MD [address] [place] [address] [address] [facility] [place] [address] PCP - General Internal Medicine 07/06/13
[2025-10-16 17:15] VITALS: BP 122/60
== END 2025-10-16 17:40 | disposition home or self-care (01) ==
LOC: HO.HMCH 16:19
PROVIDERS: PCP Internal Medicine; Visit Provider Internal Medicine
DX: Z00.00 Encounter for general adult medical examination without abnormal findings (principal); E11.65 Type 2 diabetes mellitus with hyperglycemia; I48.91 Unspecified atrial fibrillation; I10 Essential (primary) hypertension; E78.00 Pure hypercholesterolemia, unspecified; M85.89 Other specified disorders of bone density and structure, multiple sites; E66.9 Obesity, unspecified; J45.20 Mild intermittent asthma, uncomplicated; G47.33 Obstructive sleep apnea (adult) (pediatric); Z12.31 Encounter for screening mammogram for malignant neoplasm of breast; I78.1 Nevus, non-neoplastic

== ENCOUNTER → 2025-10-16 16:18 | Outpatient (BNVA) | payer MEDICARE, SELFPAY | PROVIDERS: PCP Internal Medicine; Visit Provider Internal Medicine | DX: Z00.00 Encounter for general adult medical examination without abnormal findings (principal); E11.65 Type 2 diabetes mellitus with hyperglycemia; I48.91 Unspecified atrial fibrillation; I10 Essential (primary) hypertension; E78.00 Pure hypercholesterolemia, unspecified; M85.89 Other specified disorders of bone density and structure, multiple sites; E66.9 Obesity, unspecified; J45.20 Mild intermittent asthma, uncomplicated; G47.33 Obstructive sleep apnea (adult) (pediatric); I78.1 Nevus, non-neoplastic; Z13.31 Encounter for screening for depression; Z13.39 Encounter for screening examination for other mental health and behavioral disorders | CPT/HCPCS: 96127; 99397 ==